=== PATIENT | female | born 1955 | race Caucasian/White ===

== ENCOUNTER 2017-07-21 11:21 | Day surgery (SDC) | payer MEDICARE ==
[~2017-07-21 11:21] MED LIST: Lactated Ringers 1,000 ML IV ONE; Lactated Ringers 1,000 ML IV SCH
[2017-07-21] MEDS ORDERED: Versed 2 MG/2 ML Injection IV ONE (11:22)
[2017-07-21] MEDS ORDERED: DIPRIVAN 200 MG/20 ML IV ONE (11:22)
[2017-07-21 12:47] LABS: ALBUMIN 3.9 g/dL (3.4-5.0); ALKALINE PHOSPHATASE 93 U/L (46-116); ANION GAP 10.8 MEQ/L (5-15); BLOOD UREA NITROGEN 8 mg/dL (9-20); CHLORIDE 105 mEq/L (98-107); Carbon Dioxide 31.8 mEq/L (21-32); Glucose 82 MG/DL (70-110); Potassium 4.2 mEq/L (3.5-5.1); SGOT/AST 44 U/L (15-37); SGPT/ALT 42 U/L (12-78); SODIUM 143 mEq/L (136-145); Total Protein 7.7 gm/dL (6.4-8.2)
[2017-07-21] MEDS ORDERED: Lactated Ringers 1,000 ML IV ONE (14:16)
--- NOTE | 2017-07-21 15:14 | OP ---
SURGERY DATE/TIME: 07/21/2017 1419 PREOPERATIVE DIAGNOSIS: Personal history of polyps on a three year follow up schedule. POSTOPERATIVE DIAGNOSIS: One polyp. PROCEDURE: Colonoscopy complete to cecum. Hot polypectomy to hepatic flexure x1. SURGEON: Kavon Alan M.D. ANESTHESIA: MAC. COMPLICATIONS: None. CONDITION: Stable. INDICATION: A 61 year old requiring examination. DESCRIPTION OF PROCEDURE: Taken to the endoscopy. Left lateral decubitus position. Anal digital examination was satisfactory. She is slightly incontinent and she has a rash. The scope advanced to the cecum. Base of the cecum, ileocecal valve, appendiceal orifice normal. Ascending satisfactory. Hepatic a 6 mm polyp was taken with cold biopsy forceps. The scope was then circumferentially withdrawn. No additional lesions noted. The patient tolerated the procedure satisfactorily. I will leave her on a three year follow up schedule. PLAN: Follow up in five years.
[2017-07-21 16:13] VITALS: BP 114/64; PULSE 68; O2SAT 97
[2017-07-24 15:19] LABS: 25_Hydroxyvitamin D2D3 73.1 ng/mL (30.0-80.0)
== END 2017-07-21 16:05 | disposition home or self-care (01) ==
LOC: SDC 11:21
PROVIDERS: ATTEND Surgery
PROC: 0DBK8ZX Excision of Ascending Colon, Via Natural or Artificial Opening Endoscopic, Diagnostic (ICD-10-PCS; principal; 2017-07-21)
DX: Z86.010 Personal history of colon polyps (principal); D12.2 Benign neoplasm of ascending colon; E06.0 Acute thyroiditis; E06.3 Autoimmune thyroiditis; M81.0 Age-related osteoporosis without current pathological fracture
CPT/HCPCS: 00810; 36415; 80053; 82306; 84443; 88305; J2250; J2704

== ENCOUNTER 2017-08-11 13:35 | Emergency (ER) | payer MEDICARE ==
--- NOTE | 2017-08-11 14:51 | ERPHSYRPT ---
- History of Present Illness Time Seen by Provider: 08/11/17 14:47 Source: patient, family Exam Limitations: no limitations Patient Subjective Stated Complaint: PT HERE FOR LOW B/P SINCE YESTERDAY, HAS COLONOSCOY 2 WEEKS WHICH WAS OKAY BUT WAS BUT ON ANTIBOTICS FOR A PELVIC INFECTION FOR 7 DAYS. DIZZINESS FOR 3 HOURS AGO, EATING AND DRINKING WELL Triage Nursing Assessment: PT ALERT, RESP EASY, SKIN W./D , PINK , DIZZY WHEN UP , NO EDEMA. ANTONIO BACA Physician History: The patient is a 61-year-old female with her complaining of low blood pressure yesterday and today. Her doctor yesterday instructed her that if her blood pressure remained low today that she was to go to the ER. As she was walking to her truck to come to the ER, she became lightheaded. She denies chest pain, nausea, or vomiting. She has an ongoing problem with diarrhea. She had a colonoscopy 2 weeks ago and was free of any polyps or abnormalities. She did have a polyp during the prior colonoscopy. For the past 3 days she has been placed on Diflucan for a "pelvic infection". She denies fever or chills. She denies pain. Her past medical history is significant for hypothyroidism, GERD, chronic diarrhea. Timing/Duration: yesterday Severity: mild Modifying Factors: Improves With: nothing Associated Symptoms: other (dizziness), No nausea, No vomiting, No abdominal pain, No syncope Allergies/Adverse Reactions: aspirin Allergy (Verified 08/11/17 14:02) Nausea tape Allergy (Uncoded 08/11/17 14:02) Home Medications: Bacillus Coagulans [Probiotic] 1 each PO DAILY 07/14/17 [History] Calcium Carbonate/Vitamin D3 [Calcium 500+D Tablet Chew] 1 each PO DAILY [History] Cholecalciferol (Vitamin D3) [Vitamin D] 10,000 unit PO UD 07/14/17 [History] Diazepam [Valium] 10 mg PO QID 07/14/17 [History] Diphenoxylate HCl/Atropine [Lomotil Tablet] 1 each PO QID 07/14/17 [History] Esomeprazole Magnesium [Nexium] 40 mg PO DAILY 07/14/17 [History] Gabapentin [Neurontin] 300 mg PO TID 07/14/17 [History] Hydrocodone/Acetaminophen [Hydrocodon-Acetaminophn 10-325] 1 each PO QID [History] Levothyroxine Sodium 75 Mcg [Synthroid 75 Mcg] 75 mcg PO DAILY 07/14/17 [ History] Mirtazapine [Remeron] 15 mg PO QHS 07/14/17 [History] Teriparatide [Forteo] 2.4 ml SQ DAILY 07/14/17 [History] Hx Tetanus, Diphtheria Vaccination/Date Given: Yes (2015) Hx Influenza Vaccination/Date Given: No Hx Pneumococcal Vaccination/Date Given: No Immunizations Up to Date: Yes - Review of Systems Constitutional: No Fever, No Chills Eyes: No Symptoms Ears, Nose, & Throat: No Symptoms Respiratory: No Cough, No Dyspnea Cardiac: No Chest Pain, No Edema, No Syncope Abdominal/Gastrointestinal: No Abdominal Pain, No Nausea, No Vomiting, No Diarrhea Genitourinary Symptoms: No Dysuria Musculoskeletal: No Back Pain, No Neck Pain Skin: No Rash Neurological: Vertigo, No Headache Psychological: No Symptoms Endocrine: No Symptoms Hematologic/Lymphatic: No Symptoms Immunological/Allergic: No Symptoms All Other Systems: Reviewed and Negative - Past Medical History Pertinent Past Medical History: Yes Neurological History: Migraines ENT History: No Pertinent History Cardiac History: No Pertinent History Respiratory History: No Pertinent History Endocrine Medical History: No Pertinent History Musculoskeletal History: Arthritis, Osteoporosis GI Medical History: GERD History: Other Psycho-Social History: Anxiety Female Reproductive Disorders: No Pertinent History Other Medical History: Frequent bladder infections - Past Surgical History Past Surgical History: Yes Neuro Surgical History: No Pertinent History Cardiac: No Pertinent History Respiratory: No Pertinent History Gastrointestinal: Cholecystectomy Genitourinary: No Pertinent History Musculoskeletal: Orthopedic Surgery, Other Female Surgical History: Hysterectomy, Other Other Surgical History: Cyst removed from pelvis,KNEE SURGERY. Colonoscopy. EGD - Social History Smoking Status: Former smoker Exposure to second hand smoke: No Drug Use: none Patient Lives Alone: No - Female History Hx Last Menstrual Period: POST - Nursing Vital Signs Nursing Vital Signs: Initial Vital Signs Temperature 97.9 F 08/11/17 13:56 Pulse Rate 60 08/11/17 13:56 Respiratory Rate 16 08/11/17 13:56 Blood Pressure 92/54 08/11/17 13:56 O2 Sat by Pulse Oximetry 98 08/11/17 13:56 Pain Scale Pain Intensity 0 - Physical Exam General Appearance: no apparent distress, alert Eye Exam: PERRL/EOMI, eyes nml inspection Ears, Nose, Throat Exam: normal ENT inspection, TMs normal, pharynx normal, moist mucous membranes Neck Exam: normal inspection, non-tender, supple, full range of motion Respiratory Exam: normal breath sounds, lungs clear, No respiratory distress Cardiovascular Exam: bradycardia Gastrointestinal/Abdomen Exam: soft, normal bowel sounds, No tenderness, No mass Pelvic Exam: not done Rectal Exam: not done Back Exam: normal inspection, normal range of motion, No CVA tenderness, No vertebral tenderness Extremity Exam: normal inspection, normal range of motion, pelvis stable Neurologic Exam: alert, oriented x 3, cooperative, normal mood/affect, nml cerebellar function, nml station & gait, sensation nml, No motor deficits Skin Exam: pale Lymphatic Exam: No adenopathy SpO2 Interpretation: normal SpO2: 97 Oxygen Delivery: Room Air - Course EKG Interpreted by Me: RATE, Sinus Wilmer, NORMAL AXIS, Right Bundle Branch Block , NORMAL ST-T - Radiology Exams Chest X-ray Interpretation: Teleradiologist Report, Negative (No new acute cardiopulmonary abnormalities per Dr Blankenship.) Ordered Tests: Active Orders 24 hr Category Date Time Status EKG-ER Only STAT Care 08/11/17 14:52 Active IV Insertion STAT Care 08/11/17 14:52 Active Orthostatic Vital Signs STAT Care 08/11/17 14:54 Active Orthostatic Vital Signs STAT Care 08/11/17 17:29 Active CHEST 2 VIEWS (PA AND LAT) Stat Exams 08/11/17 14:53 Completed BLOOD CULTURE Stat Lab 08/11/17 14:54 Received CBC W DIFF Stat Lab 08/11/17 15:40 Completed CMP Stat Lab 08/11/17 15:40 Completed CULTURE,URINE Stat Lab 08/11/17 15:50 Received Lactic Acid Stat Lab 08/11/17 16:55 Completed TROPONIN Q3H Lab 08/11/17 15:40 Completed TROPONIN Q3H Lab 08/11/17 18:00 Ordered TROPONIN Q3H Lab 08/11/17 21:00 Ordered TROPONIN Q3H Lab 08/12/17 00:00 Ordered TROPONIN Q3H Lab 08/12/17 03:00 Ordered UA W/ MICROSCOPIC Stat Lab 08/11/17 15:50 Completed Medication Summary Discontinued Medications Generic Name Dose Route Start Last Admin Trade Name Rl PRN Reason Stop Dose Admin Sodium Chloride 1,000 mls @ 999 mls/hr 08/11/17 14:52 08/11/17 15:50 Sodium Chloride 0.9% 1000 Ml IV 08/11/17 15:52 999 mls/hr .Q1H1M STA Administration Sodium Chloride Confirm 08/11/17 15:25 Sodium Chloride 0.9% 1000 Ml Administered 08/11/17 15:26 Dose 1,000 mls @ ud .ROUTE .STK-MED ONE Ceftriaxone Sodium/Dextrose 1 g in 50 mls @ 100 mls/hr 08/11/17 16:43 16:52 Rocephin 1 Gm-D5w 50 Ml Bag IV 08/11/17 17:12 100 mls/hr STAT STA Administration Ceftriaxone Sodium/Dextrose Confirm 08/11/17 16:51 Rocephin 1 Gm-D5w 50 Ml Bag Administered 08/11/17 16:52 Dose 1 g in 50 mls @ ud IV .STK-MED ONE Lab/Rad Data: Laboratory Result Diagrams 08/11/17 15:40 08/11/17 15:40 Laboratory Results 08/11/17 08/11/17 08/11/17 Range/Units 16:55 15:50 15:40 WBC (4.0-10.5) K/mm3 RBC (4.1-5.4) M/mm3 Hgb (12.0-16.0) gm/dl Hct (35-47) % MCV (78-100) fl MCH (26-32) pg MCHC (32-36) g/dl RDW (11.5-14.0) % Plt Count (150-450) K/mm3 MPV (6-9.5) fl Gran % (36.0-66.0) % Lymphocytes % (24.0-44.0) % Monocytes % (0.0-12.0) % Eosinophils % (0.00-5.0) % Basophils % (0.0-0.4) % Basophils # (0-0.4) Sodium (136-145) mEq/L Potassium (3.5-5.1) mEq/L Chloride (98-107) mEq/L Carbon Dioxide (21-32) mEq/L Anion Gap (5-15) MEQ/L BUN (9-20) mg/dL Creatinine (0.55-1.30) mg/dl Estimated GFR ML/MIN Glucose (70-110) MG/DL Lactic Acid 0.5 (0.4-2.0) Calcium (8.5-10.1) mg/dL Total Bilirubin (0.2-1.0) mg/dL AST (15-37) U/L ALT (12-78) U/L Alkaline Phosphatase (46-116) U/L Troponin I < 0.017 (0.000-0.056) ng/ml Serum Total Protein (6.4-8.2) gm/dL Albumin (3.4-5.0) g/dL Ur Collection Type VOID Urine Color YELLOW (YELLOW) Urine Appearance HAZY (CLEAR) Urine pH 7.0 (5-6) Ur Specific [place] 1.005 (1.005-1.025) Urine Protein TRACE (Negative) Urine Ketones NEGATIVE (NEGATIVE) Urine Blood 250 (0-5) [place]/ul Urine Nitrite NEGATIVE (NEGATIVE) Urine Bilirubin NEGATIVE (NEGATIVE) Urine Urobilinogen NORMAL (0-1) mg/dL Ur Leukocyte Esterase 2+ (NEGATIVE) Urine Microscopic RBC 5-10 (0-2) /HPF Urine Microscopic WBC >100 (0-5) /HPF Urine Bacteria MANY (NEGATIVE) /HPF Urine Culture Reflexed YES (NO) Urine Glucose NEGATIVE (NEGATIVE) mg/dL Specimen Received 08/11/17 1550 08/11/17 08/11/17 Range/Units 15:40 15:40 WBC 8.4 (4.0-10.5) K/mm3 RBC 3.26 L (4.1-5.4) M/mm3 Hgb 10.7 L (12.0-16.0) gm/dl Hct 33.2 L (35-47) % MCV 101.8 H (78-100) fl MCH 32.8 H (26-32) pg MCHC 32.2 (32-36) g/dl RDW 12.6 (11.5-14.0) % Plt Count 239 (150-450) K/mm3 MPV 11.0 H (6-9.5) fl Gran % 69.2 H (36.0-66.0) % Lymphocytes % 19.4 L (24.0-44.0) % Monocytes % 9.5 (0.0-12.0) % Eosinophils % 1.8 (0.00-5.0) % Basophils % 0.1 (0.0-0.4) % Basophils # 0.01 (0-0.4) Sodium 133 L (136-145) mEq/L Potassium 3.9 (3.5-5.1) mEq/L Chloride 96 L (98-107) mEq/L Carbon Dioxide 31.9 (21-32) mEq/L Anion Gap 9.3 (5-15) MEQ/L BUN 5 L (9-20) mg/dL Creatinine 0.79 (0.55-1.30) mg/dl Estimated GFR > 60 ML/MIN Glucose 83 (70-110) MG/DL Lactic Acid (0.4-2.0) Calcium 8.5 (8.5-10.1) mg/dL Total Bilirubin 0.60 (0.2-1.0) mg/dL AST 180 H (15-37) U/L ALT 358 H (12-78) U/L Alkaline Phosphatase 207 H (46-116) U/L Troponin I (0.000-0.056) ng/ml Serum Total Protein 6.5 (6.4-8.2) gm/dL Albumin 3.2 L (3.4-5.0) g/dL Ur Collection Type Urine Color (YELLOW) Urine Appearance (CLEAR) Urine pH (5-6) Ur Specific [place] (1.005-1.025) Urine Protein (Negative) Urine Ketones (NEGATIVE) Urine Blood (0-5) [place]/ul Urine Nitrite (NEGATIVE) Urine Bilirubin (NEGATIVE) Urine Urobilinogen (0-1) mg/dL Ur Leukocyte Esterase (NEGATIVE) Urine Microscopic RBC (0-2) /HPF Urine Microscopic WBC (0-5) /HPF Urine Bacteria (NEGATIVE) /HPF Urine Culture Reflexed (NO) Urine Glucose (NEGATIVE) mg/dL Specimen Received - Progress Progress: improved Progress Note: 08/11/17 18:11 The patient received 1 L of normal saline by IV and has been feeling better. The patient also received Rocephin 1 g by IV. Orthostatics have remained unchanged. However, the patient ambulates without difficulty in the hallway. She requests to go home now. Counseled pt/family regarding: lab results, diagnosis, need for follow-up, rad results - Departure Time of Disposition: 18:12 Departure Disposition: Home Clinical Impression: UTI (urinary tract infection), Dizziness Condition: Stable Critical Care Time: No Referrals: VITO STEWART [Primary Care Provider] - Additional Instructions: You have a UTI that may have contributed to your dizziness. You were given Rocephin 1 g and fluids 1 L by IV in the ER. Take cephalexin 500 mg 4 times a day for 7 days. Follow-up on Tuesday with your local doctor. If your condition worsens, please return to the ER for evaluation. Prescriptions: Cephalexin 500 mg PO QID #28 tablet
[2017-08-11] MEDS ORDERED: Sodium Chloride 0.9% 1000 ML 1,000 ML IV STA (14:52)
--- NOTE | 2017-08-11 15:22 | XRAY ---
Indication: Dizziness. Low blood pressure. Comparison: March 09, 2013. PA/lateral chest unchanged again demonstrating subtle left base infiltrate/atelectasis. Heart is not enlarged. Bony thorax intact again with minimal degenerative changes. No new cardiopulmonary abnormalities.
[2017-08-11] MEDS ORDERED: Sodium Chloride 0.9% 1000 ML 1,000 ML ONE (15:25)
[2017-08-11 15:53] LABS: BASOPHIL % 0.1 % (0.0-0.4); Eosinophil % 1.8 % (0.00-5.0); Granulocytes % 69.2 % (36.0-66.0); Lymphocytes % 19.4 % (24.0-44.0); Mean Cell Volume 101.8 fl (78-100); Mean Corpuscular Hemoglobin 32.8 pg (26-32); Monocytes % 9.5 % (0.0-12.0); Platelet Count 239 K/mm3 (150-450); Red Blood Count 3.26 M/mm3 (4.1-5.4); Red Cell Distribution Width 12.6 % (11.5-14.0); White Blood Count 8.4 K/mm3 (4.0-10.5)
[2017-08-11 15:53] LABS: Bilirubin NEGATIVE (NEGATIVE); Blood 250 Ery/ul (0-5); Collection Type VOID; Glucose NEGATIVE (NEGATIVE); Leukocyte Esterase 2+ (NEGATIVE)
[2017-08-11 15:54] LABS: ADD URINE CULTURE? YES (NO); COMPLETE URINE MICROSCOPIC? YES
[2017-08-11 16:01] LABS: Bacteria MANY /HPF (NEGATIVE); WBC >100 /HPF (0-5)
[2017-08-11 16:22] LABS: ALBUMIN 3.2 g/dL (3.4-5.0); ALKALINE PHOSPHATASE 207 U/L (46-116); ANION GAP 9.3 MEQ/L (5-15); BLOOD UREA NITROGEN 5 mg/dL (9-20); CHLORIDE 96 mEq/L (98-107); Carbon Dioxide 31.9 mEq/L (21-32); Glucose 83 MG/DL (70-110); Potassium 3.9 mEq/L (3.5-5.1); SGOT/AST 180 U/L (15-37); SGPT/ALT 358 U/L (12-78); SODIUM 133 mEq/L (136-145); Total Protein 6.5 gm/dL (6.4-8.2)
[2017-08-11] MEDS ORDERED: ROCEPHIN 1 Gm-D5w 50 ml Bag** 1 G/50 ML IVPB IV STA (16:43)
[2017-08-11] MEDS ORDERED: ROCEPHIN 1 Gm-D5w 50 ml Bag** 1 G/50 ML IVPB IV ONE (16:51)
[2017-08-11 17:21] VITALS: PULSE 60
[2017-08-11 18:13] VITALS: BP 78/48
[2017-08-11 18:15] VITALS: O2SAT 97
== END 2017-08-11 18:20 | disposition home or self-care (01) ==
LOC: ED 13:35
DX: N39.0 Urinary tract infection, site not specified (principal); R42 Dizziness and giddiness
CPT/HCPCS: 36000; 36415; 71020; 80053; 81000; 83605; 84484; 85025; 87040; 87077; 87086; 87186; 93005; 96360; 96365; 99284; J0696

== ENCOUNTER 2017-10-13 12:10 | Inpatient (IN) | payer MEDICARE ==
--- NOTE | 2017-10-13 07:41 | HP ---
DATE OF SURGERY: 10/13/2017 ADMISSION DIAGNOSIS: Pelvic prolapse with third degree cystocele, third vaginal cuff prolapse. ANTICIPATED PROCEDURE: Abdominovaginal sacropexy with mesh, Germaine. PAST MEDICAL HISTORY: Diarrhea, thyroid problems, colon problems. ALLERGIES: ASPIRIN. MEDICATIONS: Lomotil, Valium, Nexium. PAST SURGICAL HISTORY: None. SOCIAL HISTORY: E-cigarette. FAMILY HISTORY: Negative. REVIEW OF SYSTEMS: Negative. PHYSICAL EXAMINATION: VITAL SIGNS: Normal. CHEST: Clear. COR: Regular. ABDOMEN: No palpable organomegaly or mass. She has a low midline incision. IMPRESSION: Pelvic prolapse, third degree vaginal cuff and third degree cystocele with symptoms. PLAN: Abdominovaginal sacropexy, Germaine.
[~2017-10-13 12:10] MED LIST changes: +KEFZOL 1 GM ONE; -Lactated Ringers 1,000 ML IV SCH; +Sensorcaine 0.25% 10 ML ONE
[2017-11-10] MEDS ORDERED: Lactated Ringers 1,000 ML IV ONE ×2 (07:25→10:44)
[2017-11-10] MEDS ORDERED: KEFZOL 1 GM ONE ×2 (07:25→14:21)
[2017-11-10] MEDS ORDERED: Lactated Ringers 1,000 ML IV SCH (07:30)
[2017-11-10] MEDS ORDERED: MEFOXIN 2 GM PREMIX** 2 GM/50 ML ML IV SCH (08:00)
[2017-11-10] MEDS ORDERED: MEFOXIN 2 GM PREMIX** 2 GM/50 ML ML IV ONE (10:44)
[2017-11-10] MEDS ORDERED: BREVIBLOC 100 MG/10 ML IV ONE (12:14)
[2017-11-10] MEDS ORDERED: DILAUDID 2 MG INJECTION IV ONE (12:14)
[2017-11-10] MEDS ORDERED: Zemuron 100 MG/10 ML IV ONE (12:14)
[2017-11-10] MEDS ORDERED: BRIDION 200MG/2ML IV ONE (12:14)
[2017-11-10] MEDS ORDERED: SUBLIMAZE 250 MCG/5 ML IV ONE (12:14)
[2017-11-10] MEDS ORDERED: DIPRIVAN 200 MG/20 ML IV ONE (12:14)
[2017-11-10] MEDS ORDERED: Versed 2 MG/2 ML Injection IV ONE (12:14)
[2017-11-10] MEDS ORDERED: Narcan 0.4 MG/ML ONE (15:59)
[2017-11-10] MEDS ORDERED: MORPHINE SULFATE 2 MG INJ IV PRN (17:13)
[2017-11-10] MEDS ORDERED: TYLENOL 325 MG PO PRN (17:15)
[2017-11-10] MEDS ORDERED: FEVERALL 650 MG RC PRN (17:15)
[2017-11-10] MEDS ORDERED: Zofran 4 MG/2 ML VIAL IVIM PRN (17:19)
[2017-11-10] MEDS ORDERED: COLESEVELAM HCL 625 MG PO PRN (17:21)
[2017-11-10] MEDS ORDERED: CHOLECALCIFEROL 10000 UNIT PO SCH ×2 (17:30)
[2017-11-10] MEDS: D5W/0.45NS W/ 20mEq KCl 1000 ML 1,000 ML IV SCH (17:32)
[2017-11-10] MEDS: MORPHINE SULFATE 4 MG INJ IV PRN ×2 (17:33→22:00)
[2017-11-10] MEDS: Lomotil PO SCH ×2 (17:40→22:44)
[2017-11-10] MEDS ORDERED: VITAMIN D PO PRN (17:41)
[2017-11-10] MEDS: SYNTHROID 75 MCG PO SCH (17:42)
[2017-11-10] MEDS ORDERED: MEDICATION INTERVENTION MC PRN (17:46)
[2017-11-10] MEDS: Acidophilus TABLET PO SCH (17:50)
[2017-11-10] MEDS: Protonix 40MG Tablet PO SCH (17:50)
[2017-11-10] MEDS: Calcium 500MG W/Vit D Tablet PO SCH (17:50)
[2017-11-10] MEDS: Valium 5 MG PO SCH ×2 (17:50→22:05)
[2017-11-10 18:11] LABS: Hematocrit 40.4 % (35-47); Hemoglobin 12.8 gm/dl (12.0-16.0); Mean Corpuscular Hemoglobin 32.3 pg (26-32); Mean Corpuscular Hgb Concent. 31.7 g/dl (32-36); Mean Platelet Volume 10.1 fl (6-9.5); Platelet Count 232 K/mm3 (150-450); Red Blood Count 3.96 M/mm3 (4.1-5.4); Red Cell Distribution Width 12.6 % (11.5-14.0); White Blood Count 15.9 K/mm3 (4.0-10.5)
[2017-11-10] MEDS ORDERED: NORCO 5/325 MG ONE (19:42)
[2017-11-10] MEDS: NORCO 5/325 MG PO PRN (19:46)
[2017-11-10] MEDS: NEURONTIN 300 MG PO SCH (21:57)
[2017-11-10] MEDS: REMERON 30 MG PO SCH (21:57)
[2017-11-10] MEDS ORDERED: NON-FORMULARY ITEM (Mirtazapine [Remeron] 15 MG) PO SCH (22:00)
[2017-11-10] MEDS ORDERED: NON-FORMULARY ITEM (Diazepam [Valium] 10 MG) PO SCH (22:00)
[2017-11-10] MEDS: MEFOXIN 1 Gm/ D5W 50 Ml** 1 G/50 ML ML IV SCH (22:02)
[2017-11-11] MEDS: MEFOXIN 1 Gm/ D5W 50 Ml** 1 G/50 ML ML IV SCH ×2 (05:58→14:02)
[2017-11-11] MEDS: D5W/0.45NS W/ 20mEq KCl 1000 ML 1,000 ML IV SCH ×2 (07:14→21:56)
--- NOTE | 2017-11-11 08:25 | PCM.NOTE ---
Date and Time: 11/11/17819 Subjective Assessment: She is having a little pain tired from being woken up frequently has not had anything to eat or drink yet. Otherwise she was to start some new medications from the pain doctor that she saw yesterday but is not sure what they are. SHe was feeling her normal self prior to surgery she has cardiac clearence from Dr. 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 Objective Exam General Appearance: no apparent distress, alert Neurologic Exam: alert, oriented x 3, cooperative, normal mood/affect, nml cerebellar function, sensation nml, No motor deficits Skin Exam: normal color, warm, dry Eye Exam: PERRL, EOMI, eyes nml inspection Ears, Nose, Throat Exam: normal ENT inspection, pharynx normal, moist mucous membranes Neck Exam: normal inspection, non-tender, supple, full range of motion Respiratory Exam: normal breath sounds, lungs clear, No respiratory distress Cardiovascular Exam: regular rate/rhythm, normal heart sounds Gastrointestinal/Abdomen Exam: soft, normal bowel sounds, tenderness (mildine incision lower abdomen clean dry intact dressing), No mass Extremity Exam: normal inspection, normal range of motion, other (right upper extremity 1+ pitting edema) Back Exam: normal inspection, normal range of motion, No CVA tenderness, No vertebral tenderness Pelvic Exam: deferred Rectal Exam: deferred OBJECTIVE DATA Vital Signs: Vital Signs - 24 hr Temp Pulse Resp BP Pulse Ox 11/11/17 07:54 90 14 97 11/11/17 07:35 98.5 F 91 H 16 166/80 97 11/11/17 03:54 97.9 F 93 H 10 L 144/73 97 11/11/17 00:00 97.7 F 81 16 135/65 94 L 11/10/17 21:07 79 16 99 11/10/17 20:05 97.9 F 79 16 166/80 98 11/10/17 19:05 97.8 F 75 15 137/65 100 11/10/17 18:05 98.7 F 70 15 124/57 99 11/10/17 17:57 71 12 98 11/10/17 17:35 98.6 F 72 14 128/62 98 11/10/17 17:07 98.4 F 67 14 142/63 98 11/10/17 16:49 98.4 F 67 16 137/61 96 11/10/17 10:58 97 F 87 18 115/84 98 11/10/17 10:50 97 F 87 18 115/84 98 11/10/17 10:34 97 F 87 18 115/84 98 Oxygen-Last 24 hours O2 Percentage 2 Liters = 28% O2 Percentage 2 Liters = 28% O2 Percentage 2 Liters = 28% O2 Percentage 2 Liters = 28% O2 Percentage 2 Liters = 28% O2 Percentage 2 Liters = 28% O2 Percentage 2 Liters = 28% O2 Percentage 2 Liters = 28% O2 Percentage 2 Liters = 28% Pain Assessment - Last Documented Pain Intensity 0 Pain Scale Used 0-10 Pain Scale,FLACC Intake and Output: Intake & Output 11/08/17 11/09/17 11/10/17 11/11/17 11:59 11:59 11:59 11:59 Intake Total 748 Output Total 600 Balance 148 Weight 49.045 kg Lab Results: Lab Results-Last 24 Hours 11/10/17 Range/Units 18:09 WBC 15.9 H (4.0-10.5) K/mm3 RBC 3.96 L (4.1-5.4) M/mm3 Hgb 12.8 (12.0-16.0) gm/dl Hct 40.4 (35-47) % MCV 102.0 H (78-100) fl MCH 32.3 H (26-32) pg MCHC 31.7 L (32-36) g/dl RDW 12.6 (11.5-14.0) % Plt Count 232 (150-450) K/mm3 MPV 10.1 H (6-9.5) fl Assessment/Plan (1) S/P hysterectomy Current Visit: Yes Status: Acute Assessment & Plan: post op day 1 doing well advancing diet has not eaten yet disposition per surgery Code(s): Z90.710 - ACQUIRED ABSENCE OF BOTH CERVIX AND UTERUS (2) Elevated transaminase level Current Visit: Yes Status: Chronic Assessment & Plan: last labs are from Aug in ED which showed new liver enzyme elevation no available recheck she denies any infectious history or exposure or liver disease recheck onw Code(s): R74.0 - NONSPEC ELEV OF LEVELS OF TRANSAMNS & LACTIC ACID DEHYDRGNSE (3) COPD (chronic obstructive pulmonary disease) Current Visit: Yes Status: Chronic (4) Hypothyroidism Current Visit: Yes Status: Chronic Code(s): E03.9 - HYPOTHYROIDISM, UNSPECIFIED (5) Chronic diarrhea Current Visit: Yes Status: Chronic Code(s): K52.9 - NONINFECTIVE GASTROENTERITIS AND COLITIS, UNSPECIFIED (6) Anxiety Current Visit: Yes Status: Chronic Code(s): F41.9 - ANXIETY DISORDER, UNSPECIFIED
[2017-11-11 08:59] LABS: BASOPHIL % 0.1 % (0.0-0.4); Basophil (Absolute #) 0.01 (0-0.4); Eosinophil (Absolute #) 0 (0-0.5); Granulocyte Absolute (ANC) 14.51 (1.4-6.9); Granulocytes % 90.2 % (36.0-66.0); Hematocrit 37.4 % (35-47); Hemoglobin 12.2 gm/dl (12.0-16.0); Lymphocyte (Absolute #) 0.73 (1.0-4.6); Lymphocytes % 4.5 % (24.0-44.0); Mean Cell Volume 99.5 fl (78-100); Mean Corpuscular Hemoglobin 32.4 pg (26-32); Mean Corpuscular Hgb Concent. 32.6 g/dl (32-36); Mean Platelet Volume 10.2 fl (6-9.5); Monocyte (Absolute #) 0.83 (0.0-1.3); Monocytes % 5.2 % (0.0-12.0); Platelet Count 253 K/mm3 (150-450); Red Blood Count 3.76 M/mm3 (4.1-5.4); Red Cell Distribution Width 12.6 % (11.5-14.0); White Blood Count 16.1 K/mm3 (4.0-10.5)
[2017-11-11 09:50] LABS: ALBUMIN 3.2 g/dL (3.4-5.0); ALKALINE PHOSPHATASE 94 U/L (46-116); ANION GAP 10.9 MEQ/L (5-15); BLOOD UREA NITROGEN 9 mg/dL (9-20); CHLORIDE 102 mEq/L (98-107); Calcium 8.5 mg/dL (8.5-10.1); Carbon Dioxide 30.7 mEq/L (21-32); Creatinine 1 0.89 mg/dl (0.55-1.30); EST GLOMERULAR FILTRATION RATE > 60 ML/MIN; Glucose 156 MG/DL (70-110); Potassium 4.2 mEq/L (3.5-5.1); SGOT/AST 69 U/L (15-37); SGPT/ALT 108 U/L (12-78); SODIUM 139 mEq/L (136-145); Total Protein 6.8 gm/dL (6.4-8.2)
[2017-11-11] MEDS ORDERED: NON-FORMULARY ITEM (Esomeprazole Magnesium [Nexium] 40 MG) PO SCH (10:00)
[2017-11-11] MEDS ORDERED: VITAMIN D3 PO SCH (10:00)
[2017-11-11] MEDS ORDERED: NON-FORMULARY ITEM (Bacillus Coagulans [Probiotic] 1 EACH) PO SCH (10:00)
[2017-11-11] MEDS ORDERED: TERIPARATIDE SQ SCH (10:00)
[2017-11-11] MEDS ORDERED: CALCIUM CARBONATE PO SCH (10:00)
[2017-11-11] MEDS ORDERED: NON-FORMULARY ITEM (Megestrol Acetate 40 Mg*** 40 MG) PO SCH (10:00)
[2017-11-11] MEDS: NEURONTIN 300 MG PO SCH ×3 (10:13→21:13)
[2017-11-11] MEDS: NORCO 5/325 MG PO PRN ×2 (10:13→22:08)
[2017-11-11] MEDS: SYNTHROID 75 MCG PO SCH (10:14)
[2017-11-11] MEDS: Protonix 40MG Tablet PO SCH (10:14)
[2017-11-11] MEDS: Valium 5 MG PO SCH ×4 (10:14→21:14)
[2017-11-11] MEDS: Lomotil PO SCH ×4 (10:14→21:13)
[2017-11-11] MEDS: Acidophilus TABLET PO SCH (10:15)
[2017-11-11] MEDS: Calcium 500MG W/Vit D Tablet PO SCH (10:15)
[2017-11-11] MEDS: ENOXAPARIN SODIUM SQ SCH (10:15)
--- NOTE | 2017-11-11 13:39 | OP ---
SURGERY DATE/TIME: 11/10/2017 2616 PREOPERATIVE DIAGNOSIS: Pelvic prolapse and stress incontinence. POSTOPERATIVE DIAGNOSIS: Pelvic prolapse and stress incontinence. PROCEDURE: Abdominovaginal sacropexy, Germaine. SURGEON: Kavon Alan M.D. [employer]PER[employer]: Medical Student III. ANESTHESIA: General. COMPLICATIONS: None. CONDITION: Stable. INDICATION: A patient with pelvic prolapse and symptomatic bladder incontinence. DESCRIPTION OF PROCEDURE: Taken to surgery. General anesthetic. Routine prep and drape. Time out performed. A midline incision was already present and was re-entered. Good exposure was present. The pelvis was free. She had previous total abdominal hysterectomy and bilateral salpingo-oophorectomy. There was no gross pathology other than prolapse. The vagina was pushed forward with curved sponge stick. Eight sutures placed on 1 x 4 mesh secured to the vaginal cuff making sure to keep these off of the bladder and off the lateral area. It was then trimmed to size and two sutures were placed on the sacral promontory and this was tied down. It laid nicely. It was not rubbing into the colon. The colon had plenty of room and was laying perfectly beside it. The soft rim edge of the mesh was towards the colon. Space of Retzius was entered. The urethra vesical junction defined. The periurethral suture on the left and right 0 Prolene advanced up to the symphysis in vertical fashion. Diagonal to that on the lower bladder was advanced up to the symphysis in a diagonal fashion and then third set of sutures advanced up from the mid bladder up to the abdominal wall rectus sheath. The field was dry. Bowel laid back in organized fashion. Omentum brought down. Anterior abdominal wall closed with looped 0 PDS and subcutaneous tissues irrigated. Skin closed with lidia. Sterile dressing applied. The patient tolerated the procedure satisfactorily.
[2017-11-11] MEDS: REMERON 30 MG PO SCH (21:12)
[2017-11-12] MEDS: NORCO 5/325 MG PO PRN ×4 (02:06→21:04)
[2017-11-12 06:57] LABS: BASOPHIL % 0.2 % (0.0-0.4); Basophil (Absolute #) 0.02 (0-0.4); Eosinophil % 0.5 % (0.00-5.0); Eosinophil (Absolute #) 0.05 (0-0.5); Granulocyte Absolute (ANC) 7.22 (1.4-6.9); Granulocytes % 76.1 % (36.0-66.0); Hematocrit 36.9 % (35-47); Hemoglobin 11.6 gm/dl (12.0-16.0); Lymphocyte (Absolute #) 1.22 (1.0-4.6); Lymphocytes % 12.8 % (24.0-44.0); Mean Cell Volume 101.7 fl (78-100); Mean Corpuscular Hgb Concent. 31.4 g/dl (32-36); Mean Platelet Volume 10.9 fl (6-9.5); Monocyte (Absolute #) 0.99 (0.0-1.3); Monocytes % 10.4 % (0.0-12.0); Platelet Count 236 K/mm3 (150-450); Red Blood Count 3.63 M/mm3 (4.1-5.4); Red Cell Distribution Width 12.4 % (11.5-14.0); White Blood Count 9.5 K/mm3 (4.0-10.5)
[2017-11-12 07:09] LABS: Mean Corpuscular Hemoglobin 31.9 pg (26-32)
[2017-11-12 07:28] LABS: ALKALINE PHOSPHATASE 81 U/L (46-116); ANION GAP 7.9 MEQ/L (5-15); BLOOD UREA NITROGEN 5 mg/dL (9-20); CHLORIDE 106 mEq/L (98-107); Carbon Dioxide 31.8 mEq/L (21-32); Creatinine 1 0.77 mg/dl (0.55-1.30); EST GLOMERULAR FILTRATION RATE > 60 ML/MIN; Glucose 116 MG/DL (70-110); SGOT/AST 64 U/L (15-37); SGPT/ALT 94 U/L (12-78); SODIUM 142 mEq/L (136-145); Total Protein 6.4 gm/dL (6.4-8.2)
[2017-11-12] MEDS: Protonix 40MG Tablet PO SCH (08:56)
[2017-11-12] MEDS: SYNTHROID 75 MCG PO SCH (08:56)
[2017-11-12] MEDS: NEURONTIN 300 MG PO SCH ×3 (08:56→21:03)
[2017-11-12] MEDS: Acidophilus TABLET PO SCH (08:56)
[2017-11-12] MEDS: Calcium 500MG W/Vit D Tablet PO SCH (08:57)
[2017-11-12] MEDS: ENOXAPARIN SODIUM SQ SCH (08:57)
[2017-11-12] MEDS: Lomotil PO SCH ×4 (08:57→21:04)
[2017-11-12] MEDS: Valium 5 MG PO SCH ×4 (08:57→21:03)
[2017-11-12] MEDS: D5W/0.45NS W/ 20mEq KCl 1000 ML 1,000 ML IV SCH (09:09)
[2017-11-12] MEDS: REMERON 30 MG PO SCH (21:04)
[2017-11-13] MEDS: NORCO 5/325 MG PO PRN ×2 (05:39→09:28)
[2017-11-13 07:21] VITALS: BP 130/68; PULSE 90; O2SAT 98
[2017-11-13] MEDS: Calcium 500MG W/Vit D Tablet PO SCH (08:39)
[2017-11-13] MEDS: Lomotil PO SCH (08:39)
[2017-11-13] MEDS: Acidophilus TABLET PO SCH (08:39)
[2017-11-13] MEDS: Valium 5 MG PO SCH (08:40)
[2017-11-13] MEDS: Protonix 40MG Tablet PO SCH (08:40)
[2017-11-13] MEDS: NEURONTIN 300 MG PO SCH (08:40)
[2017-11-13] MEDS: ENOXAPARIN SODIUM SQ SCH (08:40)
[2017-11-13] MEDS: SYNTHROID 75 MCG PO SCH (08:40)
[2017-11-14 14:53] LABS: HEPATITIS B VIRUS CORE TOT AB Non Reactive (Non Reactive); HEPATITIS C VIRUS ANTIBODY Non Reactive (Non Reactive); Hepatitis B Surface Antigen Non Reactive (Non Reactive)
== END 2017-11-13 12:15 | disposition home or self-care (01) | DRG 748 ==
LOC: EDSTATUS 12:10 → MED SURG 11-10 10:09
PROVIDERS: ADMIT Surgery; ATTEND Surgery
PROC: 0USG0ZZ Reposition Vagina, Open Approach (ICD-10-PCS; principal; 2017-11-10)
PROC: 0TSD0ZZ Reposition Urethra, Open Approach (ICD-10-PCS; 2017-11-10)
DX: N81.89 Other female genital prolapse (principal); N39.3 Stress incontinence (female) (male); Z90.710 Acquired absence of both cervix and uterus; R74.0 Nonspecific elevation of levels of transaminase and lactic acid dehydrogenase [LDH]; J44.9 Chronic obstructive pulmonary disease, unspecified; E03.9 Hypothyroidism, unspecified; K52.9 Noninfective gastroenteritis and colitis, unspecified; F41.9 Anxiety disorder, unspecified; Z79.899 Other long term (current) drug therapy
CPT/HCPCS: 00860; 36415; 80053; 80074; 85025; 85027; 87077; 87086; 87186; 94760; C1781; J0690; J0694; J1170; J1650; J2250; J2270; J2310; J2405; J2704; J3010; A9270-GY

== ENCOUNTER 2017-12-05 13:25 | Inpatient (IN) | payer MEDICARE ==
[2017-12-05] MEDS ORDERED: Zofran 4 MG/2 ML VIAL IV ONE (14:16)
--- NOTE | 2017-12-05 14:21 | ERPHSYRPT ---
- History of Present Illness Time Seen by Provider: 12/05/17 14:08 Historian: patient, family Patient Subjective Stated Complaint: vomiting x 2 days, decreased UO, hit in the head w door of care just VERTICAL BORER Triage Nursing Assessment: pt assisted to cot from wheelchair, slight unsteadiness noted, skin warm and dry, abd soft, bowel sounds + x 4, no distress noted at this time. small abrasion noted to right forehead, no active bleeding noted Physician History: CC: vomiting Hx: A few weeks post bladder sling per Dr Alan. She has has 4 days of initially diarrhea and fever now vomiting. Vomited multiple times today. Fever gone. No real abd pain. Able to urinate normally. No chest pain. Opened car door and hit her head on the door VERTICAL BORER without LOC. No neck or back pain. She vomited multiple times today. Allergies/Adverse Reactions: aspirin Allergy (Verified 11/10/17 10:31) Nausea tape Allergy (Uncoded 11/10/17 10:31) Home Medications: Bacillus Coagulans [Probiotic] 1 each PO DAILY 07/14/17 [History] Calcium Carbonate/Vitamin D3 [Calcium 500+D Tablet Chew] 1 each PO DAILY [History] Cholecalciferol (Vitamin D3) [Vitamin D] 10,000 unit PO UD 07/14/17 [History] Diazepam [Valium] 10 mg PO QID 07/14/17 [History] Diphenoxylate HCl/Atropine [Lomotil 2.5-0.025 mg Tablet] 1 each PO QID 07/14/17 [History] Esomeprazole Magnesium [Nexium] 40 mg PO DAILY 07/14/17 [History] Gabapentin [Neurontin] 300 mg PO TID 07/14/17 [History] Levothyroxine Sodium 75 Mcg [Synthroid 75 Mcg] 75 mcg PO DAILY 07/14/17 [ History] Mirtazapine [Remeron] 15 mg PO QHS 07/14/17 [History] Teriparatide [Forteo] 2.4 ml SQ DAILY 07/14/17 [History] Cholecalciferol (Vitamin D3) [Vitamin D] 10,000 unit PO DIRECTIONS UNKNOWN 10/06 [History] Colesevelam HCl [Welchol] 625 mg PO DAILY PRN PRN 10/06/17 [History] Megestrol Acetate 40 mg [Megace 40 MG] 40 mg PO DAILY 10/06/17 [History] Hx Tetanus, Diphtheria Vaccination/Date Given: Yes (2015) Hx Influenza Vaccination/Date Given: No Hx Pneumococcal Vaccination/Date Given: No - Review of Systems Constitutional: Fever (gone), Fatigue, Malaise, Weakness Eyes: No Symptoms, No Vision Changes Ears, Nose, & Throat: No Symptoms Respiratory: No Symptoms Cardiac: No Chest Pain Abdominal/Gastrointestinal: Nausea, Vomiting, Diarrhea, No Abdominal Pain Genitourinary Symptoms: No Dysuria Musculoskeletal: No Back Pain, No Neck Pain Skin: No Rash Neurological: No Focal Weakness, No Headache, No Parasthesia All Other Systems: Reviewed and Negative - Past Medical History Pertinent Past Medical History: Yes Neurological History: Migraines ENT History: Cataracts Cardiac History: No Pertinent History Respiratory History: No Pertinent History Endocrine Medical History: Hypothyroidism Musculoskeletal History: Arthritis, Osteoporosis GI Medical History: GERD History: Other Psycho-Social History: Anxiety Female Reproductive Disorders: No Pertinent History Other Medical History: Frequent bladder infections, bladder dropped, urinary incontinence - Past Surgical History Past Surgical History: Yes Neuro Surgical History: No Pertinent History Cardiac: No Pertinent History Respiratory: No Pertinent History Gastrointestinal: Cholecystectomy Genitourinary: No Pertinent History Musculoskeletal: Orthopedic Surgery, Other Female Surgical History: Hysterectomy, Other Other Surgical History: Cyst removed from pelvis,KNEE SURGERY. Colonoscopy times 5. EGD times 4 - Social History Smoking Status: Former smoker How long have you smoked: 30years Exposure to second hand smoke: Yes Drug Use: none Patient Lives Alone: No - Nursing Vital Signs Nursing Vital Signs: Initial Vital Signs Temperature 97.6 F 12/05/17 13:40 Pulse Rate 96 H 12/05/17 13:40 Respiratory Rate 20 12/05/17 13:40 Blood Pressure 116/67 12/05/17 13:40 O2 Sat by Pulse Oximetry 94 L 12/05/17 13:40 Pain Scale Pain Intensity 0 - Physical Exam General Appearance: alert, thin (frail elderly lady) Eye Exam: PERRL/EOMI, No scleral icterus Ears, Nose, Throat Exam: normal ENT inspection, dry mucous membranes Neck Exam: normal inspection, non-tender, supple Respiratory Exam: normal breath sounds, lungs clear Cardiovascular Exam: regular rate/rhythm Gastrointestinal/Abdomen Exam: soft, No tenderness, No distention Back Exam: normal inspection, normal range of motion Extremity Exam: normal inspection, normal range of motion Neurologic Exam: alert, oriented x 3, cooperative, sensation nml, No motor deficits Skin Exam: warm, dry, No rash SpO2 Interpretation: normal SpO2: 94 Oxygen Delivery: Room Air - Course Nursing assessment & vital signs reviewed: Yes - Radiology Exams AAS X-ray Interpretation: Teleradiologist Report (air fluid levels) Ordered Tests: Active Orders 24 hr Category Date Time Status IV Insertion STAT Care 12/05/17 14:16 Active OBSTR/ACUTE ABDOMEN SERIES Stat Exams 12/05/17 14:16 Completed CBC W DIFF Stat Lab 12/05/17 15:51 Completed CMP Stat Lab 12/05/17 15:51 Completed CULTURE,URINE Stat Lab 12/05/17 16:35 Received LIPASE Stat Lab 12/05/17 16:23 Completed Lactic Acid Stat Lab 12/05/17 14:16 Results UA W/ MICROSCOPIC Stat Lab 12/05/17 16:35 Completed Medication Summary Generic Name Dose Route Start Last Admin Trade Name Freq PRN Reason Stop Dose Admin Sodium Chloride 1,000 mls @ 250 mls/hr 12/05/17 14:30 12/05/17 15:02 Sodium Chloride 0.9% 1000 Ml IV 01/04/18 14:29 250 mls/hr .Q4H OSIRIS Administration Discontinued Medications Generic Name Dose Route Start Last Admin Trade Name Freq PRN Reason Stop Dose Admin Diphtheria/Tetanus/Acell Pertussis 0.5 ml 12/05/17 14:22 12/05/17 15:01 Adacel Vial IM 12/05/17 14:23 0.5 ml .ONCE ONE Administration Diphtheria/Tetanus/Acell Pertussis Confirm 12/05/17 15:02 Adacel Vial Administered 12/05/17 15:03 Dose 0.5 ml IM .STK-MED ONE Ondansetron HCl 4 mg 12/05/17 14:16 12/05/17 15:00 Zofran 4 Mg/2 Ml Vial IV 12/05/17 14:17 4 mg STAT ONE Administration Ondansetron HCl Confirm 12/05/17 14:59 Zofran 4 Mg/2 Ml Vial Administered 12/05/17 15:00 Dose 4 mg .ROUTE .STK-MED ONE Lab/Rad Data: Laboratory Result Diagrams 12/05/17 15:51 12/05/17 15:51 Laboratory Results 12/05/17 12/05/17 12/05/17 Range/Units 16:35 16:23 15:51 WBC (4.0-10.5) K/mm3 RBC (4.1-5.4) M/mm3 Hgb (12.0-16.0) gm/dl Hct (35-47) % MCV (78-100) fl MCH (26-32) pg MCHC (32-36) g/dl RDW (11.5-14.0) % Plt Count (150-450) K/mm3 MPV (6-9.5) fl Gran % (36.0-66.0) % Lymphocytes % (24.0-44.0) % Monocytes % (0.0-12.0) % Eosinophils % (0.00-5.0) % Basophils % (0.0-0.4) % Basophils # (0-0.4) Sodium 140 (136-145) mEq/L Potassium 4.0 (3.5-5.1) mEq/L Chloride 98 (98-107) mEq/L Carbon Dioxide 35.9 H (21-32) mEq/L Anion Gap 10.4 (5-15) MEQ/L BUN 24 H (9-20) mg/dL Creatinine 1.95 H (0.55-1.30) mg/dl Estimated GFR 27 ML/MIN Glucose 121 H (70-110) MG/DL Lactic Acid (0.4-2.0) Calcium 10.8 H (8.5-10.1) mg/dL Total Bilirubin 0.60 (0.2-1.0) mg/dL AST 26 (15-37) U/L ALT 20 (12-78) U/L Alkaline Phosphatase 150 H (46-116) U/L Serum Total Protein 8.4 H (6.4-8.2) gm/dL Albumin 3.2 L (3.4-5.0) g/dL Lipase 172 (73-393) U/L Ur Collection Type CCMS Urine Color YELLOW (YELLOW) Urine Appearance CLOUDY (CLEAR) Urine pH 5.0 (5-6) Ur Specific [place] 1.025 (1.005-1.025) Urine Protein 30 (Negative) Urine Ketones NEGATIVE (NEGATIVE) Urine Blood 50 (0-5) [place]/ul Urine Nitrite NEGATIVE (NEGATIVE) Urine Bilirubin MODERATE (NEGATIVE) Urine Urobilinogen NORMAL (0-1) mg/dL Ur Leukocyte Esterase 2+ (NEGATIVE) Urine Microscopic RBC 5-10 (0-2) /HPF Urine Microscopic WBC 15-25 (0-5) /HPF Ur Epithelial Cells MANY (FEW) /HPF Urine Bacteria MANY (NEGATIVE) /HPF Urine Culture Reflexed YES (NO) Urine Glucose NEGATIVE (NEGATIVE) mg/dL Specimen Received 12-05-17 6525 12/05/17 12/05/17 Range/Units 15:51 14:16 WBC 17.9 H (4.0-10.5) K/mm3 RBC 4.23 (4.1-5.4) M/mm3 Hgb 13.3 (12.0-16.0) gm/dl Hct 42.4 (35-47) % MCV 100.2 H (78-100) fl MCH 31.4 (26-32) pg MCHC 31.4 L (32-36) g/dl RDW 13.6 (11.5-14.0) % Plt Count 833 H (150-450) K/mm3 MPV 9.2 (6-9.5) fl Gran % 89.5 H (36.0-66.0) % Lymphocytes % 5.5 L (24.0-44.0) % Monocytes % 4.5 (0.0-12.0) % Eosinophils % 0.3 (0.00-5.0) % Basophils % 0.2 (0.0-0.4) % Basophils # 0.04 (0-0.4) Sodium (136-145) mEq/L Potassium (3.5-5.1) mEq/L Chloride (98-107) mEq/L Carbon Dioxide (21-32) mEq/L Anion Gap (5-15) MEQ/L BUN (9-20) mg/dL Creatinine (0.55-1.30) mg/dl Estimated GFR ML/MIN Glucose (70-110) MG/DL Lactic Acid 2.1 H (0.4-2.0) Calcium (8.5-10.1) mg/dL Total Bilirubin (0.2-1.0) mg/dL AST (15-37) U/L ALT (12-78) U/L Alkaline Phosphatase (46-116) U/L Serum Total Protein (6.4-8.2) gm/dL Albumin (3.4-5.0) g/dL Lipase (73-393) U/L Ur Collection Type Urine Color (YELLOW) Urine Appearance (CLEAR) Urine pH (5-6) Ur Specific [place] (1.005-1.025) Urine Protein (Negative) Urine Ketones (NEGATIVE) Urine Blood (0-5) Layo/ul Urine Nitrite (NEGATIVE) Urine Bilirubin (NEGATIVE) Urine Urobilinogen (0-1) mg/dL Ur Leukocyte Esterase (NEGATIVE) Urine Microscopic RBC (0-2) /HPF Urine Microscopic WBC (0-5) /HPF Ur Epithelial Cells (FEW) /HPF Urine Bacteria (NEGATIVE) /HPF Urine Culture Reflexed (NO) Urine Glucose (NEGATIVE) mg/dL Specimen Received - Progress Progress Note: 12/05/17 16:25 Await lab chemistries. Xray shows air fluid levels which could be obstructive. 12/05/17 17:[address] Myra Stewart. Will place in obs for UTI treatment, rule out bowel obstr, IVF for dehydration. Discussed with : Juan Diego Will see patient in: hospital (observation) Counseled pt/family regarding: lab results, diagnosis, need for follow-up, rad results - Departure Time of Disposition: 17:06 Departure Disposition: Observation Clinical Impression: UTI (urinary tract infection), Vomiting, rule out bowel obstruction, Dehydration Condition: Fair Critical Care Time: No Referrals: VITO STEWART [Primary Care Provider] -
[2017-12-05] MEDS ORDERED: Adacel Vial IM ONE ×2 (14:22→15:02)
[2017-12-05] MEDS ORDERED: Sodium Chloride 0.9% 1000 ML 1,000 ML IV SCH (14:30)
--- NOTE | 2017-12-05 14:55 | XRAY ---
Indication: Chronic nausea, vomiting, and diarrhea. Comparison: Chest exam August 11, 2017. 2 views of the abdomen demonstrates a few mild small and large bowel air-fluid leveling, ileus versus enterocolitis. Previous cholecystectomy. Solid organs unremarkable. Mild aortic calcifications. Osseous structures intact with mild lumbar levorotoscoliosis. Single PA chest demonstrates minimal left base fibrosis/scarring. Remaining heart, lungs, and bony thorax normal. Impression: 1. A few mild small and large bowel air-fluid leveling, ileus versus enterocolitis. Obstruction not completely excluded in the right clinical setting. 2. Nonacute 1 view chest.
[2017-12-05] MEDS ORDERED: Sodium Chloride 0.9% 1000 ML 1,000 ML ONE (14:59)
[2017-12-05] MEDS ORDERED: Zofran 4 MG/2 ML VIAL ONE (14:59)
[2017-12-05 15:48] LABS: Lactic Acid 2.1 (0.4-2.0)
[2017-12-05 15:52] LABS: BASOPHIL % 0.2 % (0.0-0.4); Basophil (Absolute #) 0.04 (0-0.4); Eosinophil % 0.3 % (0.00-5.0); Eosinophil (Absolute #) 0.06 (0-0.5); Granulocytes % 89.5 % (36.0-66.0); Hematocrit 42.4 % (35-47); Hemoglobin 13.3 gm/dl (12.0-16.0); Lymphocyte (Absolute #) 0.99 (1.0-4.6); Lymphocytes % 5.5 % (24.0-44.0); Mean Cell Volume 100.2 fl (78-100); Mean Corpuscular Hemoglobin 31.4 pg (26-32); Mean Corpuscular Hgb Concent. 31.4 g/dl (32-36); Mean Platelet Volume 9.2 fl (6-9.5); Monocyte (Absolute #) 0.81 (0.0-1.3); Monocytes % 4.5 % (0.0-12.0); Platelet Count 833 K/mm3 (150-450); Red Blood Count 4.23 M/mm3 (4.1-5.4); Red Cell Distribution Width 13.6 % (11.5-14.0); White Blood Count 17.9 K/mm3 (4.0-10.5)
[2017-12-05 16:31] LABS: ALBUMIN 3.2 g/dL (3.4-5.0); ANION GAP 10.4 MEQ/L (5-15); BILIRUBIN,TOTAL 0.6 mg/dL (0.2-1.0); Calcium 10.8 mg/dL (8.5-10.1); Carbon Dioxide 35.9 mEq/L (21-32); Creatinine 1 1.95 mg/dl (0.55-1.30); Total Protein 8.4 gm/dL (6.4-8.2)
[2017-12-05 16:56] LABS: Appearance CLOUDY (CLEAR); Bacteria MANY /HPF (NEGATIVE); Bilirubin MODERATE (NEGATIVE); Blood 50 Ery/ul (0-5); Epithelial Cells MANY /HPF (FEW); Glucose NEGATIVE (NEGATIVE); Ketones NEGATIVE (NEGATIVE); Leukocyte Esterase 2+ (NEGATIVE); Nitrite NEGATIVE (NEGATIVE); Protein,Urine Dip 30 (Negative); Specific Gravity 1.025 (1.005-1.025); Urobilinogen NORMAL mg/dL (0-1); WBC 15-25 /HPF (0-5)
[2017-12-05] MEDS ORDERED: Unasyn 1.5GM / NaCl 100ML 1.5 GM/100 ML IVPB IV STA (17:05)
[2017-12-05] MEDS ORDERED: Unasyn 1.5GM / NaCl 100ML 1.5 GM/100 ML IVPB ONE (17:17)
[2017-12-05 17:59] LABS: Lactic Acid 2.1 (0.4-2.0)
[2017-12-05] MEDS: Unasyn 1.5GM / NaCl 100ML 1.5 GM/100 ML IVPB IV SCH ×2 (18:31→23:19)
[2017-12-05] MEDS: Dextrose 5% -0.45 NaCl 1000 ML 1,000 ML IV SCH (18:37)
[2017-12-05] MEDS: Zofran 4 MG/2 ML VIAL IV PRN (19:22)
--- NOTE | 2017-12-05 19:53 | PCM.HP ---
History of Present Illness - Chief Complaint Chief Complaint: R/O BOWEL OBSTRUCTION Date: 12/05/17 History of Present Illness: is a 62 year old female. who had surgery about 4 weeks ago for hysterectomy and developed diarrhea and chills 4 days ago and then 2 days ago the diarrhea stopped and she developed vomiting and was still feeling fever and chills. She came to the ED. She was recently started on tramadol for the pain post operatively and was having pain radiating down the back of her legs. No difficulty urinating. She denies shortenss of breath, cough or chest pain. She states she was not taking her anti diarrheals when she stopped having bm no previous bowel obstructions. - Review of Systems Constitutional: Fever, Chills Eyes: No Symptoms Ears, Nose, & Throat: No Symptoms Respiratory: No Cough, No Short Of Breath Cardiac: No Chest Pain, No Edema, No Syncope Abdominal/Gastrointestinal: Abdominal Pain, Nausea, Vomiting Genitourinary Symptoms: No Dysuria Musculoskeletal: Back Pain, No Neck Pain, No Joint Redness Skin: No Rash Neurological: No Dizziness, No Focal Weakness, No Sensory Changes Psychological: No Symptoms Endocrine: No Symptoms Hematologic/Lymphatic: No Symptoms Immunological/Allergic: No Symptoms Medications & Allergies Home Medications: Home Medication List Bacillus Coagulans [Probiotic] 1 each PO DAILY 07/14/17 [History Confirmed 12/05] Calcium Carbonate/Vitamin D3 [Calcium 500+D Tablet Chew] 1 each PO DAILY [History Confirmed 12/05/17] Diazepam [Valium] 10 mg PO QID 07/14/17 [History Confirmed 12/05/17] Diphenoxylate HCl/Atropine [Lomotil 2.5-0.025 mg Tablet] 1 each PO QID 07/14/17 [History Confirmed 12/05/17] Esomeprazole Magnesium [Nexium] 40 mg PO DAILY 07/14/17 [History Confirmed 12/05] Gabapentin [Neurontin] 300 mg PO TID 07/14/17 [History Confirmed 12/05/17] Levothyroxine Sodium 75 Mcg [Synthroid 75 Mcg] 75 mcg PO DAILY 07/14/17 [ History Confirmed 12/05/17] Mirtazapine [Remeron] 15 mg PO QHS 07/14/17 [History Confirmed 12/05/17] Teriparatide [Forteo] 2.4 ml SQ DAILY 07/14/17 [History Confirmed 12/05/17] Cholecalciferol (Vitamin D3) [Vitamin D] 10,000 unit PO UD 10/06/17 [History Confirmed 12/05/17] Colesevelam HCl [Welchol] 625 mg PO DAILY PRN PRN 10/06/17 [History Confirmed ] Megestrol Acetate 40 mg [Megace 40 MG] 40 mg PO DAILY 10/06/17 [History Confirmed 12/05/17] Hydrocodone/Acetaminophen [[place] 5-325 Tablet] 1 each PO Q4HPRN PRN #30 tablet MDD 6 11/13/17 [Rx Confirmed 12/05/17] Allergies/Adverse Reactions: Allergies Allergy/AdvReac Type Severity Reaction Status Date / Time aspirin Allergy Nausea Verified 12/05/17 17:45 tape Allergy Uncoded 12/05/17 17:45 - Past Medical History Past Medical History: Yes Neurological History: Migraines ENT History: Cataracts Cardiac History: No Pertinent History Respiratory History: No Pertinent History Endocrine Medical History: Hypothyroidism Musculoskelatal History: Arthritis, Osteoporosis GI Medical History: GERD History: Other Pyscho-Social History: Anxiety Reproductive Disorders: No Pertinent History Comment: Frequent bladder infections, bladder dropped, urinary incontinence - Female History Are you now?: No - Past Surgical History Past Surgical History: Yes Neuro Surgical History: No Pertinent History Cardiac History: No Pertinent History Respiratory Surgery: No Pertinent History GI Surgical History: Cholecystectomy Genitourinary Surgical Hx: No Pertinent History Musculskeletal Surgical Hx: Orthopedic Surgery, Other Female Surgical History: Hysterectomy, Other Other Surgical History: Cyst removed from pelvis,KNEE SURGERY. Colonoscopy times 5. EGD times 4. BLADDER TIED UP - Social History Smoking Status: Former smoker How long have you smoked: 30years Exposure to second hand smoke: Yes Alcohol: None Drug Use: none - Physical Exam Vital Signs: Vital Signs - 24 hr Temp Pulse Resp BP Pulse Ox 12/05/17 18:04 98.0 F 98 H 18 114/63 93 L 12/05/17 17:35 98.0 F 98 H 18 114/63 93 L 12/05/17 17:07 94 L 12/05/17 17:00 78 16 132/78 97 12/05/17 15:38 88 16 151/71 97 12/05/17 14:16 20 102/65 12/05/17 13:40 97.6 F 96 H 20 116/67 94 L General Appearance: no apparent distress, alert Neurologic Exam: alert, oriented x 3, cooperative, normal mood/affect, nml cerebellar function, nml station & gait, sensation nml, No motor deficits Eye Exam: PERRL/EOMI, eyes nml inspection Ears, Nose, Throat Exam: normal ENT inspection, TMs normal, pharynx normal, moist mucous membranes Neck Exam: normal inspection, non-tender, supple, full range of motion Respiratory Exam: normal breath sounds, lungs clear, No respiratory distress Cardiovascular Exam: regular rate/rhythm, normal heart sounds, normal peripheral pulses Gastrointestinal/Abdomen Exam: soft, normal bowel sounds, tenderness, distention (mild well healed incision midline lower abdomen with no rebound or guarding and diffuse tendernesss), No mass Back Exam: normal inspection, normal range of motion, No CVA tenderness, No vertebral tenderness Extremity Exam: normal inspection, normal range of motion, pelvis stable Skin Exam: normal color, warm, dry, No rash Lymphatic Exam: No adenopathy Results - Labs Lab/Micro Results: Lab Results-Last 24 Hours 12/05/17 12/05/17 Range/Units 17:48 17:50 Lactic Acid 2.1 H 1.3 (0.4-2.0) Assessment/Plan (1) Acute kidney injury Current Visit: Yes Status: Acute Assessment & Plan: bolus in ed and maintenance fluids now repeat cmp in am ice chips for now has good bowel sounds no peritoneal signs stop antidiarrheal meds prn zofran if abdominal pain persisting or worsening or fever check CT abd/pelvis covered currently with unasyn await urine culture lovenox for ppx Code(s): N17.9 - ACUTE KIDNEY FAILURE, UNSPECIFIED (2) UTI (urinary tract infection) Current Visit: Yes Status: Acute Code(s): N39.0 - URINARY TRACT INFECTION, SITE NOT SPECIFIED (3) Vomiting Current Visit: Yes Status: Acute Code(s): R11.10 - VOMITING, UNSPECIFIED (4) Abdominal pain Current Visit: Yes Status: Acute Code(s): R10.9 - UNSPECIFIED ABDOMINAL PAIN (5) Hypothyroidism Current Visit: Yes Status: Chronic Code(s): E03.9 - HYPOTHYROIDISM, UNSPECIFIED (6) Anxiety Current Visit: Yes Status: Chronic Code(s): F41.9 - ANXIETY DISORDER, UNSPECIFIED
[2017-12-05] MEDS: Pepcid 20 MG VIAL IV SCH (22:36)
[2017-12-05] MEDS: Valium 5 MG PO SCH (22:36)
[2017-12-05] MEDS: NEURONTIN 300 MG PO SCH (22:37)
[2017-12-05] MEDS: REMERON 30 MG PO SCH (22:37)
[2017-12-05] MEDS ORDERED: Sodium Chloride 0.9% 100 ML IVPB 100 ML IV ONE (23:15)
[2017-12-05] MEDS ORDERED: Unasyn 1.5GM Vial ONE (23:15)
[2017-12-06] MEDS: Zofran 4 MG/2 ML VIAL IV PRN (02:48)
[2017-12-06] MEDS ORDERED: Sodium Chloride 0.9% 100 ML IVPB 100 ML IV ONE (04:57)
[2017-12-06] MEDS ORDERED: Unasyn 1.5GM Vial ONE (04:57)
[2017-12-06] MEDS: Dextrose 5% -0.45 NaCl 1000 ML 1,000 ML IV SCH ×2 (05:26→18:25)
[2017-12-06] MEDS: Unasyn 1.5GM / NaCl 100ML 1.5 GM/100 ML IVPB IV SCH ×3 (05:26→18:25)
[2017-12-06 05:33] LABS: Granulocyte Absolute (ANC) 16.94 (1.4-6.9); Hemoglobin 12.1 gm/dl (12.0-16.0); Mean Cell Volume 100.3 fl (78-100); Mean Corpuscular Hemoglobin 31.9 pg (26-32); Mean Corpuscular Hgb Concent. 31.8 g/dl (32-36); Mean Platelet Volume 9.4 fl (6-9.5); Platelet Count 816 K/mm3 (150-450); Red Blood Count 3.79 M/mm3 (4.1-5.4); Red Cell Distribution Width 13.9 % (11.5-14.0); White Blood Count 20.2 K/mm3 (4.0-10.5)
[2017-12-06] MEDS: MORPHINE SULFATE 2 MG INJ IV PRN ×4 (05:51→20:44)
[2017-12-06 06:32] LABS: ALBUMIN 2.7 g/dL (3.4-5.0); ANION GAP 8.3 MEQ/L (5-15); BILIRUBIN,TOTAL 0.4 mg/dL (0.2-1.0); Calcium 10.2 mg/dL (8.5-10.1); Carbon Dioxide 32.3 mEq/L (21-32); Creatinine 1 1.5 mg/dl (0.55-1.30); Potassium 3.9 mEq/L (3.5-5.1); Total Protein 7.3 gm/dL (6.4-8.2)
[2017-12-06 06:48] LABS: ANISOCYTOSIS 1+; Lymphocytes 8 % (24-44); Monocyte 4 % (0.0-12.0); Neutrophils 88 % (36.0-66.0); Poikilocytosis 1+; Total Cells Counted 100
[2017-12-06 06:50] LABS: Platelet Estimate INCREASED (NORMAL)
--- NOTE | 2017-12-06 08:17 | PCM.NOTE ---
Date and Time: 12/06/17816 Subjective Assessment: still having abdominal pain vomited at 07:00 had cramps with the ice chips no fever or chills feels her stomach has pressure Objective Exam General Appearance: no apparent distress, alert Neurologic Exam: alert, oriented x 3, cooperative, normal mood/affect, nml cerebellar function, sensation nml, No motor deficits Skin Exam: normal color, warm, dry Eye Exam: PERRL, EOMI, eyes nml inspection Ears, Nose, Throat Exam: normal ENT inspection, pharynx normal, moist mucous membranes Neck Exam: normal inspection, non-tender, supple, full range of motion Respiratory Exam: normal breath sounds, lungs clear, No respiratory distress Cardiovascular Exam: regular rate/rhythm, normal heart sounds Gastrointestinal/Abdomen Exam: soft, tenderness (worst left lower quadrant), No normal bowel sounds (present but hypoactive), No mass, No guarding, No rebound Extremity Exam: normal inspection, normal range of motion Back Exam: normal inspection, normal range of motion, No CVA tenderness, No vertebral tenderness Pelvic Exam: deferred Rectal Exam: deferred OBJECTIVE DATA Vital Signs: Vital Signs - 24 hr Temp Pulse Resp BP Pulse Ox 12/06/17 07:29 98.3 F 94 H 18 104/53 91 L 12/06/17 04:00 98.8 F 100 H 17 124/64 93 L 12/06/17 00:00 99.0 F 107 H 16 125/68 94 L 12/05/17 20:00 98.9 F 97 H 17 114/58 93 L 12/05/17 18:04 98.0 F 98 H 18 114/63 93 L 12/05/17 17:35 98.0 F 98 H 18 114/63 93 L 12/05/17 17:07 94 L 12/05/17 17:00 78 16 132/78 97 12/05/17 15:38 88 16 151/71 97 12/05/17 14:16 20 102/65 12/05/17 13:40 97.6 F 96 H 20 116/67 94 L Pain Assessment - Last Documented Pain Intensity 0 Pain Scale Used [facility] Intake and Output: Intake & Output 12/03/17 12/04/17 12/05/17 12/06/17 11:59 11:59 11:59 11:59 Intake Total 997 Output Total 300 Balance 697 Weight 49.5 kg Lab Results: Lab Results-Last 24 Hours 12/05/17 12/05/17 12/06/17 Range/Units 17:48 17:50 05:19 WBC 20.2 H (4.0-10.5) K/mm3 RBC 3.79 L (4.1-5.4) M/mm3 Hgb 12.1 (12.0-16.0) gm/dl Hct 38.0 (35-47) % MCV 100.3 H (78-100) fl MCH 31.9 (26-32) pg MCHC 31.8 L (32-36) g/dl RDW 13.9 (11.5-14.0) % Plt Count 816 H (150-450) K/mm3 MPV 9.4 (6-9.5) fl Segmented Neutrophils 88 H (36.0-66.0) % Lymphocytes (Manual) 8 L (24-44) % Monocytes (Manual) 4 (0.0-12.0) % Differential Comment ABNORMAL Platelet Estimate INCREASED (NORMAL) Poikilocytosis 1+ Anisocytosis 1+ Sodium (136-145) mEq/L Potassium (3.5-5.1) mEq/L Chloride (98-107) mEq/L Carbon Dioxide (21-32) mEq/L Anion Gap (5-15) MEQ/L BUN (9-20) mg/dL Creatinine (0.55-1.30) mg/dl Estimated GFR ML/MIN Glucose (70-110) MG/DL Lactic Acid 2.1 H 1.3 (0.4-2.0) Calcium (8.5-10.1) mg/dL Total Bilirubin (0.2-1.0) mg/dL AST (15-37) U/L ALT (12-78) U/L Alkaline Phosphatase (46-116) U/L Serum Total Protein (6.4-8.2) gm/dL Albumin (3.4-5.0) g/dL 12/06/17 Range/Units 05:19 WBC (4.0-10.5) K/mm3 RBC (4.1-5.4) M/mm3 Hgb (12.0-16.0) gm/dl Hct (35-47) % MCV (78-100) fl MCH (26-32) pg MCHC (32-36) g/dl RDW (11.5-14.0) % Plt Count (150-450) K/mm3 MPV (6-9.5) fl Segmented Neutrophils (36.0-66.0) % Lymphocytes (Manual) (24-44) % Monocytes (Manual) (0.0-12.0) % Differential Comment Platelet Estimate (NORMAL) Poikilocytosis Anisocytosis Sodium 140 (136-145) mEq/L Potassium 3.9 (3.5-5.1) mEq/L Chloride 103 (98-107) mEq/L Carbon Dioxide 32.3 H (21-32) mEq/L Anion Gap 8.3 (5-15) MEQ/L BUN 23 H (9-20) mg/dL Creatinine 1.50 H (0.55-1.30) mg/dl Estimated GFR 37 ML/MIN Glucose 143 H (70-110) MG/DL Lactic Acid (0.4-2.0) Calcium 10.2 H (8.5-10.1) mg/dL Total Bilirubin 0.40 (0.2-1.0) mg/dL AST 26 (15-37) U/L ALT 15 (12-78) U/L Alkaline Phosphatase 118 H (46-116) U/L Serum Total Protein 7.3 (6.4-8.2) gm/dL Albumin 2.7 L (3.4-5.0) g/dL Radiology Exams: Radiology Procedures Category Date Time Status ABDOMEN AND PELVIS W/0 CONTRAS [CT] Routine Exams 12/06/17 08:09 Ordered Assessment/Plan (1) Acute kidney injury Current Visit: Yes Status: Acute Assessment & Plan: improving with hydration with the vomiting and abdominal pain check ct rule out bowel obstruction with recent surgery and consult her surgeon remain npo on unasyn cultures pending Code(s): N17.9 - ACUTE KIDNEY FAILURE, UNSPECIFIED (2) UTI (urinary tract infection) Current Visit: Yes Status: Acute Code(s): N39.0 - URINARY TRACT INFECTION, SITE NOT SPECIFIED (3) Vomiting Current Visit: Yes Status: Acute Code(s): R11.10 - VOMITING, UNSPECIFIED (4) Abdominal pain Current Visit: Yes Status: Acute Code(s): R10.9 - UNSPECIFIED ABDOMINAL PAIN (5) Hypothyroidism Current Visit: Yes Status: Chronic Code(s): E03.9 - HYPOTHYROIDISM, UNSPECIFIED (6) Anxiety Current Visit: Yes Status: Chronic Code(s): F41.9 - ANXIETY DISORDER, UNSPECIFIED
[2017-12-06] MEDS ORDERED: FLUCELVAX QUAD 2017-2018 SYR IM ONE (10:00)
[2017-12-06] MEDS ORDERED: NON-FORMULARY ITEM (Esomeprazole Magnesium [Nexium] 40 MG) PO SCH (10:00)
[2017-12-06] MEDS ORDERED: NON-FORMULARY ITEM (Bacillus Coagulans [Probiotic] 1 EACH) PO SCH (10:00)
--- NOTE | 2017-12-06 10:18 | XRAY ---
Indication: Bloating, nausea, and vomiting. Status post bladder surgery November 10, 2017. Multiple contiguous axial images obtained through the abdomen and pelvis without contrast as ordered. Comparison: October 18, 2013. Lung bases demonstrates new mild bibasilar dependent atelectasis, tiny right effusion, and patchy lingular airspace opacity. Stable left base discoid atelectasis/scarring. Heart is not enlarged. Stomach is now markedly fluid distended. The small bowel loops are also abnormally fluid distended to level of the distal ileum up to 3.7 cm in diameter with some fluid leveling. The entire colon is decompressed. Findings favor distal small bowel obstruction. There is small abdominal/pelvic free fluid. No walled off fluid collection or free air. Again previous hysterectomy and cholecystectomy. Remaining liver, pancreas, spleen, adrenal glands, kidneys, ureters, and bladder appear unremarkable for noncontrast exam. There remains mild aortoiliac calcifications without AAA. Osseous structures intact again with mild spinal degenerative changes greatest at the lumbosacral junction. Impression: 1. New CT findings favoring distal small bowel obstruction. 2. New abdominal/pelvic free fluid presumed reactive. 3. New lingular airspace disease and tiny right base effusion. Comment: Telephone report was given to the ordering clinician Dr. Torres at 1008 hrs. on December 06, 2017. CTDI 8.50
[2017-12-06] MEDS: ENOXAPARIN SODIUM SQ SCH (10:59)
[2017-12-06] MEDS: Pepcid 20 MG VIAL IV SCH ×2 (11:08→22:09)
[2017-12-06] MEDS: NEURONTIN 300 MG PO SCH ×3 (11:09→22:09)
[2017-12-06] MEDS: Acidophilus TABLET PO SCH (11:09)
[2017-12-06] MEDS: SYNTHROID 75 MCG PO SCH (11:09)
[2017-12-06] MEDS: Valium 5 MG PO SCH ×4 (11:09→22:10)
[2017-12-06] MEDS: Protonix 40MG Tablet PO SCH (11:09)
[2017-12-06] MEDS ORDERED: FLAGYL 500 MG IVPB 500 MG/100 ML BAG IV ONE (22:08)
[2017-12-06] MEDS: REMERON 30 MG PO SCH (22:09)
[2017-12-06] MEDS: Zosyn 3.375GM/100 Ml D5W 3.375 GM/100 ML IVPB IV SCH (22:12)
[2017-12-06] MEDS: FLAGYL 500 MG IVPB 500 MG/100 ML BAG IV SCH (22:45)
[2017-12-07] MEDS: Zosyn 3.375GM/100 Ml D5W 3.375 GM/100 ML IVPB IV SCH ×2 (00:20→06:04)
[2017-12-07] MEDS: FLAGYL 500 MG IVPB 500 MG/100 ML BAG IV SCH ×5 (00:21→17:14)
[2017-12-07] MEDS: MORPHINE SULFATE 2 MG INJ IV PRN ×3 (01:41→14:58)
[2017-12-07 05:43] LABS: BASOPHIL % 0.2 % (0.0-0.4); Basophil (Absolute #) 0.03 (0-0.4); Eosinophil % 3.9 % (0.00-5.0); Granulocyte Absolute (ANC) 9.54 (1.4-6.9); Granulocytes % 74.1 % (36.0-66.0); Hematocrit 34.2 % (35-47); Hemoglobin 10.6 gm/dl (12.0-16.0); Lymphocyte (Absolute #) 1.64 (1.0-4.6); Lymphocytes % 12.7 % (24.0-44.0); Mean Cell Volume 102.1 fl (78-100); Mean Corpuscular Hemoglobin 31.6 pg (26-32); Mean Platelet Volume 9.5 fl (6-9.5); Monocyte (Absolute #) 1.17 (0.0-1.3); Monocytes % 9.1 % (0.0-12.0); Platelet Count 622 K/mm3 (150-450); Red Blood Count 3.35 M/mm3 (4.1-5.4); Red Cell Distribution Width 13.4 % (11.5-14.0); White Blood Count 12.9 K/mm3 (4.0-10.5)
[2017-12-07 06:02] LABS: ALBUMIN 2.4 g/dL (3.4-5.0); ALKALINE PHOSPHATASE 101 U/L (46-116); ANION GAP 9.4 MEQ/L (5-15); BLOOD UREA NITROGEN 10 mg/dL (9-20); CHLORIDE 105 mEq/L (98-107); Calcium 9.5 mg/dL (8.5-10.1); Carbon Dioxide 31.1 mEq/L (21-32); Creatinine 1 0.96 mg/dl (0.55-1.30); EST GLOMERULAR FILTRATION RATE > 60 ML/MIN; Glucose 116 MG/DL (70-110); Potassium 3.7 mEq/L (3.5-5.1); SGOT/AST 21 U/L (15-37); SGPT/ALT 13 U/L (12-78); SODIUM 142 mEq/L (136-145); Total Protein 6.4 gm/dL (6.4-8.2)
[2017-12-07] MEDS: Dextrose 5% -0.45 NaCl 1000 ML 1,000 ML IV SCH ×2 (06:14→17:21)
[2017-12-07] MEDS ORDERED: TYLENOL 325 MG PO PRN (06:17)
--- NOTE | 2017-12-07 08:09 | CONS ---
CONSULT DATE: 12/06/2017 The patient is seen for Dr. Alan. HISTORY: The patient is a 62 year-old patient of Dr. Alan who had bladder tie up procedure earlier this month. She had some abdominal pain, some vomiting, aches and pains. She was admitted on 12/05/2017. It does not look like an NG was placed at that time. Question of whether enterocolitis versus partial obstruction or ileus. Either way CT scan today showed a little distended stomach. I am not sure if the results were available earlier but NG still has not been placed. She had some alternating diarrhea and constipation since the surgery. No bowel movement earlier today. Temperature max is 99F. She has been mainly afebrile, pulse 98 to 100, blood pressure 124/64. White blood cell count around 20, hemoglobin 12.1, PLT count around 800,000. Lipase is 172. PAST SURGICAL HISTORY: As noted above. She has had a cholecystectomy, hysterectomy, knee surgery, cyst removed from pelvis, colonoscopy in the past, EGD in the past as well as a recent bladder tie up. MEDICATIONS: Prior to admission include Probiotic, vitamin D plus calcium 500, vitamin D3, Lomotil, Valium, Nexium, Forteo, Synthroid, Remeron, vitamin D3, Carson, Welchol, Megace. ALLERGIES: ASPIRIN, TAPE. FAMILY HISTORY: Negative in regards to this problem. SOCIAL HISTORY: Former smoker. REVIEW OF SYSTEMS: Twelve systems reviewed per admission assessment. No chest pain or palpitations other systems negative or noncontributory as above and per preadmission questionnaire. She has several distended loops of bowel but has not had trial of NG decompression yet. She does wear glasses. PHYSICAL EXAMINATION: GENERAL: Nontoxic and in no acute distress. HEENT: Sclera nonicteric. She is wearing glasses. NECK: No JVD. CHEST: Equal excursion, nonlabored breathing. CVS: Regular rate and rhythm. ABDOMEN: Soft. She does have some mild distention. Her old incision is clean, dry and intact, healing well. There are no peritoneal signs currently. She had some mild tenderness, some mild distention but again a very soft abdomen. There is no obvious palpable hernia at this time. EXTREMITIES: No significant edema. NEURO: Alert, moving extremities symmetrically. IMPRESSION: A 62 year-old female with past history of bladder procedure, history of urinary tract infection, has some distended loops of small bowel, had some fluid in the colon as well. Question whether she has a partial obstruction versus ileus, slight enterocolitis. I feel she is nontoxic. Her abdomen is very soft. I do not feel she needs emergent surgery but definitely feels she needs a trial of NG decompression. On serial films if she is not improving in a day and a half then Dr. Alan will decide whether to consider small bowel follow through versus other intervention. She understands the plan and agrees to trial NG decompression as she in the hospital the past day or so and have not tried that yet. Again, no emergent surgery is necessary but definitely needs trial NG decompression. If she fails to improve there is possibility she could need surgical intervention versus small bowel follow through. Either way she has elevated white blood cell count and is on Zosyn and Flagyl as she had some diarrhea before to decrease the risk of developing Clostridium difficile and to treat any potential enterocolitis if that could be a factor in ileus versus partial obstruction. She and her agree to the plan. Have NG placed, check serial films. Will update Dr. Alan that she is here.
[2017-12-07] MEDS ORDERED: Levofloxacin 500MG/100ML D5W 500 MG/100 ML BAG IV STA (08:24)
--- NOTE | 2017-12-07 08:33 | PCM.NOTE ---
Date and Time: 12/07/17832 Subjective Assessment: She is stillhaving some abdominal pains worse on the left lower side had NG placed tolerating well passed small amount of flatulence no BM Objective Exam General Appearance: no apparent distress, alert Neurologic Exam: alert, oriented x 3, cooperative, normal mood/affect, nml cerebellar function, sensation nml, No motor deficits Skin Exam: normal color, warm, dry Eye Exam: PERRL, EOMI, eyes nml inspection Ears, Nose, Throat Exam: normal ENT inspection, pharynx normal, moist mucous membranes Neck Exam: normal inspection, non-tender, supple, full range of motion Respiratory Exam: normal breath sounds, lungs clear, No respiratory distress Cardiovascular Exam: regular rate/rhythm, normal heart sounds Gastrointestinal/Abdomen Exam: soft, tenderness (diffuse worse in left lower quadrant. midline lower abdominal incision well healed), distention, No mass, No guarding, No ecchymosis Extremity Exam: normal inspection, normal range of motion Back Exam: normal inspection, normal range of motion, No CVA tenderness, No vertebral tenderness Pelvic Exam: deferred Rectal Exam: deferred OBJECTIVE DATA Vital Signs: Vital Signs - 24 hr Temp Pulse Resp BP Pulse Ox 12/07/17 07:57 97.7 F 89 18 136/69 93 L 12/07/17 03:20 97.7 F 95 H 18 139/63 93 L 12/06/17 23:30 98.5 F 89 20 151/72 93 L 12/06/17 19:35 98.6 F 87 16 95/52 94 L 12/06/17 16:00 98.1 F 90 18 116/58 91 L 12/06/17 11:34 98.3 F 99 H 18 94/54 91 L Pain Assessment - Last Documented Pain Intensity 5 Pain Scale Used 0-10 Pain Scale Intake and Output: Intake & Output 12/04/17 12/05/17 12/06/17 12/07/17 11:59 11:59 11:59 11:59 Intake Total 0 Output Total 1625 Balance -1625 Weight 49.2 kg Lab Results: Lab Results-Last 24 Hours 12/07/17 12/07/17 Range/Units 05:05 05:05 WBC 12.9 H (4.0-10.5) K/mm3 RBC 3.35 L (4.1-5.4) M/mm3 Hgb 10.6 L (12.0-16.0) gm/dl Hct 34.2 L (35-47) % MCV 102.1 H (78-100) fl MCH 31.6 (26-32) pg MCHC 31.0 L (32-36) g/dl RDW 13.4 (11.5-14.0) % Plt Count 622 H (150-450) K/mm3 MPV 9.5 (6-9.5) fl Gran % 74.1 H (36.0-66.0) % Lymphocytes % 12.7 L (24.0-44.0) % Monocytes % 9.1 (0.0-12.0) % Eosinophils % 3.9 (0.00-5.0) % Basophils % 0.2 (0.0-0.4) % Basophils # 0.03 (0-0.4) Sodium 142 (136-145) mEq/L Potassium 3.7 (3.5-5.1) mEq/L Chloride 105 (98-107) mEq/L Carbon Dioxide 31.1 (21-32) mEq/L Anion Gap 9.4 (5-15) MEQ/L BUN 10 (9-20) mg/dL Creatinine 0.96 (0.55-1.30) mg/dl Estimated GFR > 60 ML/MIN Glucose 116 H (70-110) MG/DL Calcium 9.5 (8.5-10.1) mg/dL Total Bilirubin 0.30 (0.2-1.0) mg/dL AST 21 (15-37) U/L ALT 13 (12-78) U/L Alkaline Phosphatase 101 (46-116) U/L Serum Total Protein 6.4 (6.4-8.2) gm/dL Albumin 2.4 L (3.4-5.0) g/dL Radiology Exams: Radiology Procedures Category Date Time Status ABDOMEN 2 VIEW Routine Exams 12/07/17 Ordered Assessment/Plan (1) Small bowel obstruction Current Visit: Yes Status: Acute Assessment & Plan: NG in place to low intermittent suction Dr. Duque saw last night and plans to continue bowel decompression and serial abdominal x-ray and Dr. Alan to evaluate for resolution vs surgical options on will check xray today ted improved the urine culture shows 2 organisms in order to cover both organisms will change abx from zosyn to levaquin per sensitivities and continue flagyl as ordered per surgery Code(s): K56.609 - UNSP INTESTNL OBST, UNSP TO PARTIAL VERSUS COMPLETE OBST (2) UTI (urinary tract infection) Current Visit: Yes Status: Acute Code(s): N39.0 - URINARY TRACT INFECTION, SITE NOT SPECIFIED (3) Acute kidney injury Current Visit: Yes Status: Resolved Code(s): N17.9 - ACUTE KIDNEY FAILURE, UNSPECIFIED (4) Vomiting Current Visit: Yes Status: Acute Code(s): R11.10 - VOMITING, UNSPECIFIED (5) Abdominal pain Current Visit: Yes Status: Acute Code(s): R10.9 - UNSPECIFIED ABDOMINAL PAIN (6) Hypothyroidism Current Visit: Yes Status: Chronic Code(s): E03.9 - HYPOTHYROIDISM, UNSPECIFIED (7) Anxiety Current Visit: Yes Status: Chronic Code(s): F41.9 - ANXIETY DISORDER, UNSPECIFIED
[2017-12-07] MEDS: ENOXAPARIN SODIUM SQ SCH (10:23)
[2017-12-07] MEDS: Protonix 40MG Tablet PO SCH (10:24)
[2017-12-07] MEDS: NEURONTIN 300 MG PO SCH ×3 (10:24→21:33)
[2017-12-07] MEDS: Acidophilus TABLET PO SCH (10:24)
[2017-12-07] MEDS: Pepcid 20 MG VIAL IV SCH ×2 (10:24→21:33)
[2017-12-07] MEDS: SYNTHROID 75 MCG PO SCH (10:24)
[2017-12-07] MEDS: Valium 5 MG PO SCH ×4 (10:24→21:34)
--- NOTE | 2017-12-07 11:30 | XRAY ---
Indication: Small bowel obstruction. Comparison: December 05, 2017. Supine and left lateral decubitus abdomen again demonstrates cholecystotomy clips with a few small bowel air-fluid leveling with paucity of colonic bowel gas favoring CT proven distal small bowel obstruction essentially unchanged. No free air or new abnormalities.
[2017-12-07] MEDS: Zofran 4 MG/2 ML VIAL IV PRN ×2 (14:58→21:33)
--- NOTE | 2017-12-07 15:02 | XRAY ---
Indication: NG tube placement. Comparison: Abdomen exam taken earlier in the day. Portable chest demonstrates interval NG tube advancement with the tip now slightly in the left upper quadrant abdomen in the stomach. Recommend further advancement if possible. Lungs demonstrates bibasilar discoid atelectasis. Remaining heart, lungs, and bony thorax unremarkable.
[2017-12-07] MEDS: REMERON 30 MG PO SCH (21:34)
[2017-12-08] MEDS: FLAGYL 500 MG IVPB 500 MG/100 ML BAG IV SCH ×3 (00:07→16:51)
[2017-12-08] MEDS: MORPHINE SULFATE 2 MG INJ IV PRN ×3 (00:13→09:37)
[2017-12-08] MEDS: Dextrose 5% -0.45 NaCl 1000 ML 1,000 ML IV SCH ×2 (04:01→15:57)
[2017-12-08 05:49] LABS: BASOPHIL % 0.2 % (0.0-0.4); Basophil (Absolute #) 0.03 (0-0.4); Eosinophil % 2.5 % (0.00-5.0); Eosinophil (Absolute #) 0.31 (0-0.5); Granulocyte Absolute (ANC) 9.75 (1.4-6.9); Granulocytes % 77.1 % (36.0-66.0); Hematocrit 32.5 % (35-47); Hemoglobin 10.1 gm/dl (12.0-16.0); Lymphocyte (Absolute #) 1.38 (1.0-4.6); Lymphocytes % 10.9 % (24.0-44.0); Mean Cell Volume 102.2 fl (78-100); Mean Corpuscular Hgb Concent. 31.1 g/dl (32-36); Mean Platelet Volume 9.3 fl (6-9.5); Monocyte (Absolute #) 1.18 (0.0-1.3); Monocytes % 9.3 % (0.0-12.0); Platelet Count 534 K/mm3 (150-450); Red Blood Count 3.18 M/mm3 (4.1-5.4); Red Cell Distribution Width 13.2 % (11.5-14.0); White Blood Count 12.7 K/mm3 (4.0-10.5)
[2017-12-08 05:52] LABS: Mean Corpuscular Hemoglobin 31.7 pg (26-32)
[2017-12-08 06:19] LABS: ALBUMIN 2.3 g/dL (3.4-5.0); ALKALINE PHOSPHATASE 102 U/L (46-116); ANION GAP 6.2 MEQ/L (5-15); BLOOD UREA NITROGEN 3 mg/dL (9-20); CHLORIDE 107 mEq/L (98-107); Calcium 9.3 mg/dL (8.5-10.1); Carbon Dioxide 33.4 mEq/L (21-32); Creatinine 1 0.89 mg/dl (0.55-1.30); EST GLOMERULAR FILTRATION RATE > 60 ML/MIN; Glucose 118 MG/DL (70-110); Potassium 3.6 mEq/L (3.5-5.1); SGOT/AST 20 U/L (15-37); SGPT/ALT 11 U/L (12-78); SODIUM 143 mEq/L (136-145); Total Protein 6.4 gm/dL (6.4-8.2)
--- NOTE | 2017-12-08 08:45 | XRAY ---
Indication: NG tube placement. Comparison: One day earlier. Portable chest demonstrates interval advancement of the NG tube with the tip in the stomach. Stable bibasilar discoid atelectasis with new tiny bibasilar effusions. Heart is not enlarged. Comment: Preliminary interpretation was made by [facility]. No discrepancy.
--- NOTE | 2017-12-08 08:47 | XRAY ---
Indication: Obstruction. Ileus versus enterocolitis. Comparison: One day earlier. 2 views of the abdomen unchanged again demonstrating a few small bowel air-fluid leveling with paucity of colonic bowel gas favoring CT proven distal small bowel obstruction. Again cholecystectomy clips and NG tube tip now in the stomach. No new abnormalities.
[2017-12-08] MEDS: SYNTHROID 75 MCG PO SCH (09:36)
[2017-12-08] MEDS: Protonix 40MG Tablet PO SCH (09:36)
[2017-12-08] MEDS: Acidophilus TABLET PO SCH (09:36)
[2017-12-08] MEDS: Valium 5 MG PO SCH ×4 (09:36→22:23)
[2017-12-08] MEDS: NEURONTIN 300 MG PO SCH ×3 (09:36→22:23)
[2017-12-08] MEDS: Levofloxacin 500MG/100ML D5W 500 MG/100 ML BAG IV SCH (09:37)
[2017-12-08] MEDS: ENOXAPARIN SODIUM SQ SCH (09:37)
[2017-12-08] MEDS: Pepcid 20 MG VIAL IV SCH ×2 (09:37→22:24)
[2017-12-08] MEDS: Zofran 4 MG/2 ML VIAL IV PRN (12:26)
--- NOTE | 2017-12-08 17:53 | PCM.NOTE ---
Date and Time: 12/08/171748 Subjective Assessment: no bm minimal or no flatulance still having abodominal pain the ng is still draining she inadvertently pulled it out last night while in restroom and it was replaced feels fullness still in abdomen and chest area. Objective Exam General Appearance: no apparent distress, thin Neurologic Exam: alert, oriented x 3 Skin Exam: warm, dry Ears, Nose, Throat Exam: dry mucous membranes Neck Exam: non-tender, supple Respiratory Exam: normal breath sounds, lungs clear Cardiovascular Exam: regular rate/rhythm, normal heart sounds Gastrointestinal/Abdomen Exam: tenderness (diffuse worse in the lower quadrants) , distention, No normal bowel sounds (diminshed) Extremity Exam: normal inspection OBJECTIVE DATA Vital Signs: Vital Signs - 24 hr Temp Pulse Resp BP Pulse Ox 12/08/17 16:00 98.0 F 95 H 16 113/60 90 L 12/08/17 11:23 98.0 F 93 H 20 112/55 93 L 12/08/17 07:27 98.0 F 92 H 20 128/67 91 L 12/08/17 07:05 91 L 12/08/17 04:00 98.9 F 97 H 20 121/59 89 L 12/07/17 23:32 98.5 F 101 H 18 147/68 93 L 12/07/17 20:00 98.6 F 100 H 16 125/61 98 Pain Assessment - Last Documented Pain Intensity 4 Pain Scale Used 0-10 Pain Scale Intake and Output: Intake & Output 12/06/17 12/07/17 12/08/17 12/09/17 11:59 11:59 11:59 11:59 Intake Total 0 2354 Output Total 1625 4000 Balance -1625 -1646 Weight 49.2 kg 50.2 kg 50.2 kg Lab Results: Lab Results-Last 24 Hours 12/08/17 12/08/17 Range/Units 05:30 05:30 WBC 12.7 H (4.0-10.5) K/mm3 RBC 3.18 L (4.1-5.4) M/mm3 Hgb 10.1 L (12.0-16.0) gm/dl Hct 32.5 L (35-47) % MCV 102.2 H (78-100) fl MCH 31.7 (26-32) pg MCHC 31.1 L (32-36) g/dl RDW 13.2 (11.5-14.0) % Plt Count 534 H (150-450) K/mm3 MPV 9.3 (6-9.5) fl Gran % 77.1 H (36.0-66.0) % Lymphocytes % 10.9 L (24.0-44.0) % Monocytes % 9.3 (0.0-12.0) % Eosinophils % 2.5 (0.00-5.0) % Basophils % 0.2 (0.0-0.4) % Basophils # 0.03 (0-0.4) Sodium 143 (136-145) mEq/L Potassium 3.6 (3.5-5.1) mEq/L Chloride 107 (98-107) mEq/L Carbon Dioxide 33.4 H (21-32) mEq/L Anion Gap 6.2 (5-15) MEQ/L BUN 3 L (9-20) mg/dL Creatinine 0.89 (0.55-1.30) mg/dl Estimated GFR > 60 ML/MIN Glucose 118 H (70-110) MG/DL Calcium 9.3 (8.5-10.1) mg/dL Total Bilirubin 0.30 (0.2-1.0) mg/dL AST 20 (15-37) U/L ALT 11 L (12-78) U/L Alkaline Phosphatase 102 (46-116) U/L Serum Total Protein 6.4 (6.4-8.2) gm/dL Albumin 2.3 L (3.4-5.0) g/dL Radiology Exams: Radiology Procedures Category Date Time Status ABDOMEN 2 VIEW Routine Exams 12/07/17 10:55 Completed ABDOMEN 2 VIEW Routine Exams 12/08/17 07:00 Completed CHEST 1 VIEW (PORTABLE) Stat Exams 12/07/17 13:53 Completed CHEST 1 VIEW (PORTABLE) Urgent Exams 12/08/17 01:00 Completed SMALL BOWEL SERIES Routine Exams 12/09/17 Ordered Multi-Disciplinary Progress Notes: Multi-Disciplinary Progress Notes 12/08/17 10:45 (created 12/08/17 16:45) Case Management Note by Maribel Robles REVIEWED DISCHARGE PLAN, INDEPENDENT WITH ALL ADL'S. PLANS TO RETURN HOME WITH TO PRE EPISODIC LEVEL OF FNX. Initialized on 12/08/17 16:45 - END OF NOTE Assessment/Plan (1) Small bowel obstruction Current Visit: Yes Status: Acute Assessment & Plan: ng continue iv fluids ted resolved uti on levaquin flagyl per surgery mgmt of [facility] per surgery recs her is in the room with her and is very frustrated today that she is not better yet. We discussed in detail the treatment for small bowel obstruction with bowel decompression and rest with the hopes that it will self resolve and prevent any further surgeries that could increase the risk of further bowel obstructions in the future. Attempted to answer all questions but he still seemed frustrated that she was not better yet. Code(s): K56.609 - UNSP INTESTNL OBST, UNSP TO PARTIAL VERSUS COMPLETE OBST (2) UTI (urinary tract infection) Current Visit: Yes Status: Acute Code(s): N39.0 - URINARY TRACT INFECTION, SITE NOT SPECIFIED (3) Acute kidney injury Current Visit: Yes Status: Resolved Code(s): N17.9 - ACUTE KIDNEY FAILURE, UNSPECIFIED (4) Vomiting Current Visit: Yes Status: Acute Code(s): R11.10 - VOMITING, UNSPECIFIED (5) Abdominal pain Current Visit: Yes Status: Acute Code(s): R10.9 - UNSPECIFIED ABDOMINAL PAIN (6) Hypothyroidism Current Visit: Yes Status: Chronic Code(s): E03.9 - HYPOTHYROIDISM, UNSPECIFIED (7) Anxiety Current Visit: Yes Status: Chronic Code(s): F41.9 - ANXIETY DISORDER, UNSPECIFIED
[2017-12-08] MEDS: REMERON 30 MG PO SCH (22:23)
[2017-12-09] MEDS: FLAGYL 500 MG IVPB 500 MG/100 ML BAG IV SCH ×3 (00:27→16:39)
[2017-12-09] MEDS: Dextrose 5% -0.45 NaCl 1000 ML 1,000 ML IV SCH ×2 (03:16→23:38)
[2017-12-09] MEDS: Zofran 4 MG/2 ML VIAL IV PRN (04:51)
[2017-12-09 06:25] LABS: ALBUMIN 2.3 g/dL (3.4-5.0); ALKALINE PHOSPHATASE 98 U/L (46-116); ANION GAP 8.5 MEQ/L (5-15); BLOOD UREA NITROGEN 2 mg/dL (9-20); CHLORIDE 107 mEq/L (98-107); Calcium 9.4 mg/dL (8.5-10.1); Carbon Dioxide 31.3 mEq/L (21-32); Creatinine 1 0.79 mg/dl (0.55-1.30); EST GLOMERULAR FILTRATION RATE > 60 ML/MIN; Glucose 118 MG/DL (70-110); MAGNESIUM 1.5 mg/dL (1.8-2.4); Potassium 3.2 mEq/L (3.5-5.1); SGOT/AST 21 U/L (15-37); SGPT/ALT 12 U/L (12-78); SODIUM 144 mEq/L (136-145); Total Protein 6.6 gm/dL (6.4-8.2)
[2017-12-09] MEDS ORDERED: POTASSIUM CHLORIDE 20 mEq IN WATER 100ML 20 MEQ/100 ML BAG IV ONE (07:52)
[2017-12-09] MEDS ORDERED: Magnesium 1 Gm / 100 Ml D5W*** 100 ML IV SCH (08:00)
--- NOTE | 2017-12-09 08:00 | PCM.NOTE ---
Date and Time: 12/09/17 0800 Subjective Assessment: she has been up and walking and the pain persists and nausea persists she is very thirsty no flatulence no bowel movement. Objective Exam General Appearance: no apparent distress, alert Neurologic Exam: alert, oriented x 3, cooperative Skin Exam: normal color, warm, dry Eye Exam: PERRL, EOMI, eyes nml inspection Ears, Nose, Throat Exam: normal ENT inspection, dry mucous membranes (NG in place) Neck Exam: normal inspection, non-tender, supple, full range of motion Respiratory Exam: normal breath sounds, lungs clear, No respiratory distress Cardiovascular Exam: regular rate/rhythm, normal heart sounds Gastrointestinal/Abdomen Exam: soft, tenderness (diffuse worse bilateral lower quadrants), distention, No normal bowel sounds (hypoactive), No mass, No ecchymosis Extremity Exam: normal inspection Back Exam: No CVA tenderness Pelvic Exam: deferred Rectal Exam: deferred OBJECTIVE DATA Vital Signs: Vital Signs - 24 hr Temp Pulse Resp BP Pulse Ox 12/09/17 04:00 98.7 F 92 H 18 126/63 92 L 12/08/17 23:57 98.6 F 90 17 111/59 92 L 12/08/17 19:57 98.7 F 92 H 18 120/58 92 L 12/08/17 16:00 98.0 F 95 H 16 113/60 90 L 12/08/17 11:23 98.0 F 93 H 20 112/55 93 L Pain Assessment - Last Documented Pain Intensity 4 Pain Scale Used 0-10 Pain Scale Intake and Output: Intake & Output 12/06/17 12/07/17 12/08/17 12/09/17 11:59 11:59 11:59 11:59 Intake Total 0 2354 2413 Output Total 1625 4000 1150 Balance -1625 -1646 1263 Weight 49.2 kg 50.2 kg 50.2 kg Lab Results: Lab Results-Last 24 Hours 12/09/17 Range/Units 05:40 Sodium 144 (136-145) mEq/L Potassium 3.2 L (3.5-5.1) mEq/L Chloride 107 (98-107) mEq/L Carbon Dioxide 31.3 (21-32) mEq/L Anion Gap 8.5 (5-15) MEQ/L BUN 2 L (9-20) mg/dL Creatinine 0.79 (0.55-1.30) mg/dl Estimated GFR > 60 ML/MIN Glucose 118 H (70-110) MG/DL Calcium 9.4 (8.5-10.1) mg/dL Magnesium 1.5 L (1.8-2.4) mg/dL Total Bilirubin 0.30 (0.2-1.0) mg/dL AST 21 (15-37) U/L ALT 12 (12-78) U/L Alkaline Phosphatase 98 (46-116) U/L Serum Total Protein 6.6 (6.4-8.2) gm/dL Albumin 2.3 L (3.4-5.0) g/dL Radiology Exams: Radiology Procedures Category Date Time Status ABDOMEN 2 VIEW Routine Exams 12/07/17 10:55 Completed ABDOMEN 2 VIEW Routine Exams 12/08/17 07:00 Completed CHEST 1 VIEW (PORTABLE) Stat Exams 12/07/17 13:53 Completed CHEST 1 VIEW (PORTABLE) Urgent Exams 12/08/17 01:00 Completed SMALL BOWEL SERIES Routine Exams 12/09/17 Ordered Multi-Disciplinary Progress Notes: Multi-Disciplinary Progress Notes 12/08/17 10:45 (created 12/08/17 16:45) Case Management Note by Maribel Robles REVIEWED DISCHARGE PLAN, INDEPENDENT WITH ALL ADL'S. PLANS TO RETURN HOME WITH TO PRE EPISODIC LEVEL OF FNX. Initialized on 12/08/17 16:45 - END OF NOTE Assessment/Plan (1) Small bowel obstruction Current Visit: Yes Status: Acute Assessment & Plan: Continues NG to LIS will correct K and mag today recheck in am Dr. Alan following for general surgery small bowel follow through today was vomited and showed the obstruction and no movement past the stomach other then diffusion. She has had PICC placed today and TPN started today UTI covered with levaquin flagyl ordered per general surgery as well Code(s): K56.609 - UNSP INTESTNL OBST, UNSP TO PARTIAL VERSUS COMPLETE OBST (2) UTI (urinary tract infection) Current Visit: Yes Status: Acute Code(s): N39.0 - URINARY TRACT INFECTION, SITE NOT SPECIFIED (3) Acute kidney injury Current Visit: Yes Status: Resolved Code(s): N17.9 - ACUTE KIDNEY FAILURE, UNSPECIFIED (4) Vomiting Current Visit: Yes Status: Acute Code(s): R11.10 - VOMITING, UNSPECIFIED (5) Abdominal pain Current Visit: Yes Status: Acute Code(s): R10.9 - UNSPECIFIED ABDOMINAL PAIN (6) Hypothyroidism Current Visit: Yes Status: Chronic Code(s): E03.9 - HYPOTHYROIDISM, UNSPECIFIED (7) Anxiety Current Visit: Yes Status: Chronic Code(s): F41.9 - ANXIETY DISORDER, UNSPECIFIED
[2017-12-09] MEDS ORDERED: MAGNESIUM SULFATE IV SCH ×3 (09:00)
[2017-12-09] MEDS ORDERED: POTASSIUM CHLORIDE IV SCH ×3 (09:00)
[2017-12-09] MEDS ORDERED: [UNRECOGNIZED DRUG - OTHER] IV SCH ×3 (09:00)
[2017-12-09] MEDS: Levofloxacin 500MG/100ML D5W 500 MG/100 ML BAG IV SCH (10:00)
[2017-12-09] MEDS: Acidophilus TABLET PO SCH (10:00)
[2017-12-09] MEDS: Pepcid 20 MG VIAL IV SCH (10:34)
[2017-12-09] MEDS: ENOXAPARIN SODIUM SQ SCH (10:52)
[2017-12-09] MEDS: NEURONTIN 300 MG PO SCH ×2 (10:52→15:00)
[2017-12-09] MEDS: Valium 5 MG PO SCH ×3 (10:52→17:07)
[2017-12-09] MEDS: SYNTHROID 75 MCG PO SCH (10:53)
[2017-12-09] MEDS: Protonix 40MG Tablet PO SCH (10:53)
[2017-12-09] MEDS ORDERED: PHARMACY DOSING REQUEST MC ONE (11:42)
[2017-12-09] MEDS ORDERED: INTRALIPID 20% 250 ML 250 ML, TPN Electrolytes 40 ML, Multitrace-4 Conc Vial 1 ML*** 1 ... IV SCH ×7 (14:00)
--- NOTE | 2017-12-09 14:25 | XRAY ---
Indication: Obstruction. 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 NG tube tip in the stomach and cholecystectomy clips present. Approximately 600 cc of diluted Gastrografin was it injected through indwelling NG tube. Serial overhead radiographs obtained. The 0 minute image demonstrates contrast collecting in the stomach and in a mildly distended descending duodenum. After 2 hours, the patient vomited a portion of the contrast. After 4 hours 10 minutes, contrast remains predominantly in the stomach. There is faint contrast seen throughout distended small bowel loops from diffusion of the contrast and not from peristalsis. Study was terminated. Impression: After 4 hours 10 minutes the small bowel follow-through exam is abnormal consistent with distal small bowel obstruction.
[2017-12-09] MEDS ORDERED: POTASSIUM CHLORIDE 20 mEq IN WATER 100ML 100 ML IV ONE (14:40)
--- NOTE | 2017-12-09 15:07 | XRAY ---
Indication: Ultrasound guidance for PICC line placement. Initial sonographic imaging of the right upper extremity was performed for localization of patent veins. A patent basilic vein identified above the elbow. Ultrasound guidance was then used for PICC line insertion. Full PICC line insertion is reported separately.
--- NOTE | 2017-12-09 15:12 | XRAY ---
Indication: Obstruction. Long-term IV access and therapy. Informed consent obtained. Patient was placed on the fluoroscopic table in a supine position. Initial sonographic imaging of the right upper extremity was performed for localization of patent veins. The right upper extremity was then prepped and draped in sterile fashion. Tourniquet applied. 1% lidocaine plain used for local anesthesia. Using ultrasound guidance and a micropuncture needle, a basilic vein above the elbow was successfully percutaneously cannulized. A floppy tip 0.018 guidewire inserted. Tourniquet released. Needle was exchanged for a 5 Estonian dilator peel-away sheath catheter. Ultimately a 5 Estonian double-lumen PICC line was inserted over a longer 0.018 guidewire with the tip positioned in the distal SVC using fluoroscopic guidance. Guidewire removed. Both ports flushed with heparinized saline. Catheter was secured. Postoperative instructions and orders given. Patient discharged in good condition. Impression: Technically successful right upper extremity PICC line placement using ultrasound and fluoroscopic guidance. No immediate complications. Approximately 1 cc blood loss. Approximately 0.2 minute of fluoroscopy used. Catheter length is 32 cm
[2017-12-09] MEDS ORDERED: Lactated Ringers 1,000 ML IV ONE (18:54)
[2017-12-09] MEDS ORDERED: MEFOXIN 2 GM PREMIX** 2 GM/50 ML ML IV ONE (19:21)
[2017-12-09] MEDS ORDERED: Lactated Ringers 1,000 ML IV SCH (20:00)
[2017-12-09] MEDS ORDERED: MEFOXIN 2 GM PREMIX** 2 GM/50 ML ML IV SCH (20:00)
[2017-12-09] MEDS ORDERED: Lactated Ringers 0 ML IV ONE (20:02)
[2017-12-09] MEDS ORDERED: Lactated Ringers 2,000 ML IV ONE (20:13)
[2017-12-09] MEDS ORDERED: AlbuRx 25% 50ML VIAL*** 50 ML IV ONE ×2 (20:44→20:50)
[2017-12-09] MEDS: Morphine PCA 1 MG/ML 30 ML IV PRN (23:36)
[2017-12-10] MEDS ORDERED: FEVERALL 650 MG PR PRN (00:13)
[2017-12-10] MEDS ORDERED: MEDICATION INTERVENTION MC PRN (07:50)
[2017-12-10] MEDS: Morphine PCA 1 MG/ML 30 ML IV PRN ×4 (08:00→16:00)
[2017-12-10] MEDS: MEFOXIN 1 Gm/ D5W 50 Ml** 1 G/50 ML ML IV SCH ×3 (08:05→18:05)
[2017-12-10 08:21] LABS: ANION GAP 5.4 MEQ/L (5-15); BLOOD UREA NITROGEN 8 mg/dL (9-20); CHLORIDE 103 mEq/L (98-107); Calcium 8.6 mg/dL (8.5-10.1); Carbon Dioxide 31.2 mEq/L (21-32); Creatinine 1 0.76 mg/dl (0.55-1.30); EST GLOMERULAR FILTRATION RATE > 60 ML/MIN; Potassium 3.6 mEq/L (3.5-5.1); SODIUM 136 mEq/L (136-145)
[2017-12-10 08:26] LABS: Glucose 159 MG/DL (70-110)
[2017-12-10 08:33] LABS: Hematocrit 34.3 % (35-47); Hemoglobin 10.4 gm/dl (12.0-16.0); Mean Cell Volume 102.7 fl (78-100); Mean Corpuscular Hemoglobin 31.1 pg (26-32); Mean Corpuscular Hgb Concent. 30.3 g/dl (32-36); Mean Platelet Volume 10.2 fl (6-9.5); Platelet Count 577 K/mm3 (150-450); Red Blood Count 3.34 M/mm3 (4.1-5.4); Red Cell Distribution Width 13.6 % (11.5-14.0); White Blood Count 22.2 K/mm3 (4.0-10.5)
[2017-12-10] MEDS ORDERED: MEFOXIN 1 Gm/ D5W 50 Ml** 1 G/50 ML ML IV SCH (09:00)
[2017-12-10] MEDS: FLAGYL 500 MG IVPB 500 MG/100 ML BAG IV SCH ×2 (11:45→18:06)
[2017-12-10] MEDS: Protonix 40MG Tablet PO SCH (11:45)
[2017-12-10] MEDS: ENOXAPARIN SODIUM SQ SCH (11:46)
[2017-12-10] MEDS: SYNTHROID 75 MCG PO SCH (11:47)
[2017-12-10] MEDS: INTRALIPID 20% 250 ML 250 ML, TPN Electrolytes 40 ML, Multitrace-4 Conc Vial 1 ML*** 1 ... IV SCH ×8 (13:29)
[2017-12-10 14:18] LABS: BAND 6 % (0.0-2.0); Lymphocytes 3 % (24-44); Monocyte 1 % (0.0-12.0); Neutrophils 90 % (36.0-66.0); Total Cells Counted 100
[2017-12-10 14:19] LABS: Platelet Estimate INCREASED (NORMAL)
[2017-12-11] MEDS: FLAGYL 500 MG IVPB 500 MG/100 ML BAG IV SCH ×5 (00:13→23:54)
[2017-12-11] MEDS: Dextrose 5% -0.45 NaCl 1000 ML 1,000 ML IV SCH (00:16)
[2017-12-11] MEDS: Zofran 4 MG/2 ML VIAL IVIM PRN ×2 (05:49→14:40)
[2017-12-11 06:05] LABS: Granulocyte Absolute (ANC) 15.98 (1.4-6.9); Hemoglobin 9.4 gm/dl (12.0-16.0); Mean Corpuscular Hemoglobin 31.5 pg (26-32); Mean Corpuscular Hgb Concent. 30.3 g/dl (32-36); Mean Platelet Volume 10.1 fl (6-9.5); Platelet Count 496 K/mm3 (150-450); Red Blood Count 2.98 M/mm3 (4.1-5.4); Red Cell Distribution Width 13.3 % (11.5-14.0); White Blood Count 20.8 K/mm3 (4.0-10.5)
[2017-12-11 06:25] LABS: ALBUMIN 2.4 g/dL (3.4-5.0); ALKALINE PHOSPHATASE 83 U/L (46-116); ANION GAP 7.7 MEQ/L (5-15); BLOOD UREA NITROGEN 13 mg/dL (9-20); CHLORIDE 104 mEq/L (98-107); Calcium 8.5 mg/dL (8.5-10.1); Carbon Dioxide 31.6 mEq/L (21-32); Creatinine 1 0.76 mg/dl (0.55-1.30); EST GLOMERULAR FILTRATION RATE > 60 ML/MIN; Glucose 128 MG/DL (70-110); Potassium 3.7 mEq/L (3.5-5.1); SGOT/AST 34 U/L (15-37); SGPT/ALT 19 U/L (12-78); SODIUM 140 mEq/L (136-145); Total Protein 6.3 gm/dL (6.4-8.2)
[2017-12-11 07:39] LABS: Eosinophil 3 % (0.00-3.0); Lymphocytes 14 % (24-44); Monocyte 9 % (0.0-12.0); Neutrophils 74 % (36.0-66.0); Platelet Estimate NORMAL (NORMAL); Total Cells Counted 100
[2017-12-11] MEDS: ENOXAPARIN SODIUM SQ SCH (10:48)
[2017-12-11] MEDS: Protonix 40MG Tablet PO SCH (10:48)
[2017-12-11] MEDS: SYNTHROID 75 MCG PO SCH (10:48)
[2017-12-11] MEDS: Zosyn 3.375GM/100 Ml D5W 3.375 GM/100 ML IVPB IV SCH ×3 (12:18→23:04)
[2017-12-11] MEDS: Morphine PCA 1 MG/ML 30 ML IV PRN ×3 (12:39→19:56)
[2017-12-11] MEDS: INTRALIPID 20% 250 ML 250 ML, TPN Electrolytes 40 ML, Multitrace-4 Conc Vial 1 ML*** 1 ... IV SCH ×8 (14:00)
[2017-12-11] MEDS: TYLENOL 325 MG PO PRN (18:58)
--- NOTE | 2017-12-11 20:21 | XRAY ---
Indication: NG tube insertion. Comparison: December 08, 2017. Portable chest demonstrates NG tube tip looped in the stomach. New right arm PICC line with the tip projecting over the SVC. Remaining chest unchanged again with mild bibasilar atelectasis/effusions. Heart is not enlarged.
[2017-12-12] MEDS: TYLENOL 325 MG PO PRN ×2 (05:12→16:17)
[2017-12-12] MEDS: Zosyn 3.375GM/100 Ml D5W 3.375 GM/100 ML IVPB IV SCH ×4 (05:13→19:50)
[2017-12-12 05:32] LABS: Granulocyte Absolute (ANC) 9.36 (1.4-6.9); Hematocrit 28.4 % (35-47); Hemoglobin 8.6 gm/dl (12.0-16.0); Mean Cell Volume 103.6 fl (78-100); Mean Corpuscular Hgb Concent. 30.3 g/dl (32-36); Mean Platelet Volume 9.9 fl (6-9.5); Platelet Count 400 K/mm3 (150-450); Red Blood Count 2.74 M/mm3 (4.1-5.4); Red Cell Distribution Width 13.2 % (11.5-14.0); White Blood Count 13.9 K/mm3 (4.0-10.5)
[2017-12-12 06:03] LABS: ALBUMIN 2.4 g/dL (3.4-5.0); ALKALINE PHOSPHATASE 88 U/L (46-116); BLOOD UREA NITROGEN 11 mg/dL (9-20); CHLORIDE 104 mEq/L (98-107); Carbon Dioxide 33.4 mEq/L (21-32); EST GLOMERULAR FILTRATION RATE > 60 ML/MIN; Glucose 117 MG/DL (70-110); MAGNESIUM 2.1 mg/dL (1.8-2.4); Potassium 3.4 mEq/L (3.5-5.1); SGOT/AST 29 U/L (15-37); SGPT/ALT 17 U/L (12-78); SODIUM 140 mEq/L (136-145); Total Protein 6.3 gm/dL (6.4-8.2)
[2017-12-12] MEDS: FLAGYL 500 MG IVPB 500 MG/100 ML BAG IV SCH ×4 (06:08→23:10)
[2017-12-12 06:17] LABS: Mean Corpuscular Hemoglobin 31.3 pg (26-32)
[2017-12-12 06:33] LABS: ANISOCYTOSIS 1+; Eosinophil 6 % (0.00-3.0); Lymphocytes 6 % (24-44); Monocyte 10 % (0.0-12.0); Neutrophils 78 % (36.0-66.0); Platelet Estimate NORMAL (NORMAL); Poikilocytosis 1+; Polychromasia 1+; Total Cells Counted 100
--- NOTE | 2017-12-12 08:02 | PCM.NOTE ---
Date and Time: 12/12/17801 Subjective Assessment: still having the pain worse with walking she has excoriated rash in the groin area that has been treating with barrier cream and present for several months now not improving she continues to have output from NG she has irritation from the dressing on the incision. no flatulance or bm they are concerned about some increased swelling in the suprapubic area. Objective Exam General Appearance: no apparent distress, alert Neurologic Exam: alert, oriented x 3, cooperative, normal mood/affect, nml cerebellar function Skin Exam: normal color, warm, dry, other (excoriated red irritated rash on outer vulva) Eye Exam: PERRL, EOMI, eyes nml inspection Ears, Nose, Throat Exam: other (NG in place taped with output) Neck Exam: supple Respiratory Exam: normal breath sounds, lungs clear, No respiratory distress Cardiovascular Exam: regular rate/rhythm, normal heart sounds Gastrointestinal/Abdomen Exam: soft, tenderness (diffuse), distention (mild), No guarding, No ecchymosis (dressing clean and intact midline lower abdominal incision) Extremity Exam: normal inspection, normal range of motion, No pedal edema Back Exam: normal inspection, normal range of motion, No CVA tenderness, No vertebral tenderness Pelvic Exam: deferred Rectal Exam: deferred OBJECTIVE DATA Vital Signs: Vital Signs - 24 hr Temp Pulse Resp BP Pulse Ox 12/12/17 05:28 92 L 12/12/17 04:00 97.6 F 98 H 14 128/61 92 L 12/12/17 03:56 92 L 12/12/17 01:28 95 12/12/17 00:00 98.7 F 84 12 117/55 95 12/11/17 23:56 95 12/11/17 21:28 91 L 12/11/17 20:00 98.4 F 97 H 16 111/61 91 L 12/11/17 19:56 91 L 12/11/17 17:28 96 12/11/17 16:32 96 12/11/17 16:15 97.8 F 99 H 18 136/63 96 12/11/17 12:39 96 12/11/17 11:14 98.4 F 96 H 18 122/64 96 Pain Assessment - Last Documented Pain Intensity 8 Pain Scale Used 0-10 Pain Scale Intake and Output: Intake & Output 12/09/17 12/10/17 12/11/17 12/12/17 11:59 11:59 11:59 11:59 Intake Total 2414 8545 2772 3030 Output Total 1041 8700 1576 2200 Balance 1263 -1834 1204 178 Weight 48.3 kg 48.1 kg 48.8 kg Lab Results: Lab Results-Last 24 Hours 12/12/17 12/12/17 Range/Units 05:20 05:20 WBC 13.9 H (4.0-10.5) K/mm3 RBC 2.74 L (4.1-5.4) M/mm3 Hgb 8.6 L (12.0-16.0) gm/dl Hct 28.4 L (35-47) % MCV 103.6 H (78-100) fl MCH 31.3 (26-32) pg MCHC 30.3 L (32-36) g/dl RDW 13.2 (11.5-14.0) % Plt Count 400 (150-450) K/mm3 MPV 9.9 H (6-9.5) fl Segmented Neutrophils 78 H (36.0-66.0) % Lymphocytes (Manual) 6 L (24-44) % Monocytes (Manual) 10 (0.0-12.0) % Eosinophils (Manual) 6 H (0.00-3.0) % Differential Comment ABNORMAL Platelet Estimate NORMAL (NORMAL) Polychromasia 1+ Poikilocytosis 1+ Anisocytosis 1+ Sodium 140 (136-145) mEq/L Potassium 3.4 L (3.5-5.1) mEq/L Chloride 104 (98-107) mEq/L Carbon Dioxide 33.4 H (21-32) mEq/L Anion Gap 6.0 (5-15) MEQ/L BUN 11 (9-20) mg/dL Creatinine 0.80 (0.55-1.30) mg/dl Estimated GFR > 60 ML/MIN Glucose 117 H (70-110) MG/DL Calcium 8.0 L (8.5-10.1) mg/dL Magnesium 2.1 (1.8-2.4) mg/dL Total Bilirubin 0.20 (0.2-1.0) mg/dL AST 29 (15-37) U/L ALT 17 (12-78) U/L Alkaline Phosphatase 88 (46-116) U/L Serum Total Protein 6.3 L (6.4-8.2) gm/dL Albumin 2.4 L (3.4-5.0) g/dL Radiology Exams: Radiology Procedures Category Date Time Status CHEST 1 VIEW (PORTABLE) Urgent Exams 12/11/17 15:36 Completed Multi-Disciplinary Progress Notes: Multi-Disciplinary Progress Notes 12/11/17 13:49 Case Management Note by Karen Reyes CERTIFICATION ON PAPER CHART FOR EXTENDED STAY BEYOND 96 HOURS. PATIENT DOES NOT WANT TO TRANSFER. Initialized on 12/11/17 13:49 - END OF NOTE Assessment/Plan (1) Small bowel obstruction Current Visit: Yes Status: Acute Assessment & Plan: post op day 3 Dr. Garret Alan following NG continues output no bm or flutulance remains on tpn with the swelling suprapubic will check a post void residual cath to rule out urinary retention add lotrisone cream for the vulvar rash and itching. will need formal exam with her discomfort unable to get accurate pelvic exam in the bed today Code(s): K56.609 - UNSP INTESTNL OBST, UNSP TO PARTIAL VERSUS COMPLETE OBST (2) UTI (urinary tract infection) Current Visit: Yes Status: Acute Assessment & Plan: she was treated with levaquin based on cultures repeat cultures were no growth she was changed to zosyn and flagyl over the weekend post operatively and remains on these now Code(s): N39.0 - URINARY TRACT INFECTION, SITE NOT SPECIFIED (3) Acute kidney injury Current Visit: Yes Status: Resolved Code(s): N17.9 - ACUTE KIDNEY FAILURE, UNSPECIFIED (4) Vomiting Current Visit: Yes Status: Acute Code(s): R11.10 - VOMITING, UNSPECIFIED (5) Abdominal pain Current Visit: Yes Status: Acute Code(s): R10.9 - UNSPECIFIED ABDOMINAL PAIN (6) Hypothyroidism Current Visit: Yes Status: Chronic Code(s): E03.9 - HYPOTHYROIDISM, UNSPECIFIED (7) Anxiety Current Visit: Yes Status: Chronic Code(s): F41.9 - ANXIETY DISORDER, UNSPECIFIED (8) Anemia Current Visit: Yes Status: Acute Assessment & Plan: post op trend Code(s): D64.9 - ANEMIA, UNSPECIFIED
[2017-12-12] MEDS ORDERED: CHLORASEPTIC SPRAY 180 ML PO PRN (08:52)
--- NOTE | 2017-12-12 10:21 | OP ---
SURGERY DATE/TIME: 12/09/20172052 PREOPERATIVE DIAGNOSIS: Small bowel obstruction. POSTOPERATIVE DIAGNOSIS: Small bowel obstruction secondary internal hernia at adhesion site walling off part of the left lower quadrant between the broad ligament of the uterus and the sigmoid colon. PROCEDURE: Exploratory laparotomy with release of small bowel obstruction via release of adhesions, i.e. adhesiolysis and subsequent closure of this window. SURGEON: Kavon Alan M.D. ANESTHESIA: General. COMPLICATIONS: None. CONDITION: Stable. INDICATION: A patient presents with small bowel obstruction. She is one month out from abdominovaginal sacropexy, [facility]. She is doing well otherwise. She almost started to get over this but then it actually worsened. She had a terrible day on 12/09/2017. DESCRIPTION OF PROCEDURE: She is brought to surgery with the upper GI small bowel follow through showing a complete distal small bowel obstruction. She was distended. The old midline incision was entered. There was a small seroma in the lower part of the incision. It was cultured. The fascia was intact. The patient does have a thin physique and a fairly thin weak fascia. Previous incision was opened extending about 1 inch upwards. The small bowels were obstructed but there was 3 foot of small bowel that was not obstructed. Inspecting this area and carefully withdrawing this area from the pelvis down the left side there was a window in between the sigmoid colon and the pelvic side wall on the left which this bowel loop was in. It was able to be pulled up out of this and it had been rotated about 360 degrees before falling into this area and then stuck there and it was clearly decided obstruction. The bowel was totally viable. There was nothing on the bowel that needed any repair or improvement. The window was about 2.5 inches big. There were significant adhesions of the sigmoid against the pelvic side wall and then there were adhesions of the sigmoid against the vaginal cuff and then there was this window in front of this with the broad ligament area this was closed with a running suture #3-0 PDS and then the bowels were all laid on the right side. Which was a much bigger window about 4 to 5 inches in size and was not felt to be a problem in the small bowel, ligament of Treitz, ileocecal valve. The cecum was placed in the right pelvic gutter. Unobstructed small laid up coming right up from this and then the previous obstructed small bowel laid back in organized fashion, portion at the ligament of Treitz and then portion of the right lower quadrant they laid back in nicely. Anterior abdominal wall closed with 0 looped PDS 3 sutures in all. Subcutaneous tissues irrigated. Skin closed with lidia. Omentum then brought down. Nasogastric tube was in satisfactory position. Masters in satisfactory position. No drains were placed. NG was left in place. Masters was left in place. Findings discussed with a very large family in the waiting room. IMPRESSION: The patient had internal hernia from a walled off area in the left lower pelvis secondary to previous old diverticulitis with adhesions and additionally adhesions secondary to recent surgery.
[2017-12-12] MEDS: ENOXAPARIN SODIUM SQ SCH (10:23)
[2017-12-12] MEDS: Lotrisone Cream TOP SCH ×2 (10:23→22:01)
[2017-12-12] MEDS: SYNTHROID 75 MCG PO SCH (10:24)
[2017-12-12] MEDS: Protonix 40MG Tablet PO SCH (10:24)
[2017-12-12] MEDS: Dextrose 5% -0.45 NaCl 1000 ML 1,000 ML IV SCH (10:33)
[2017-12-12] MEDS: Zofran 4 MG/2 ML VIAL IVIM PRN ×2 (13:43→22:55)
[2017-12-12] MEDS: INTRALIPID 20% 250 ML 250 ML, TPN Electrolytes 40 ML, Multitrace-4 Conc Vial 1 ML*** 1 ... IV SCH ×8 (14:13)
[2017-12-12] MEDS ORDERED: BRIDION 200MG/2ML IV ONE (16:18)
[2017-12-12] MEDS ORDERED: Zofran 4 MG/2 ML VIAL IV ONE (16:18)
[2017-12-12] MEDS ORDERED: SUBLIMAZE 250 MCG/5 ML IJ ONE ×2 (16:18)
[2017-12-12] MEDS ORDERED: DIPRIVAN 200 MG/20 ML IV ONE (16:18)
[2017-12-12] MEDS ORDERED: Quelicin Fliptop 200 MG/10 ML IJ ONE (16:18)
[2017-12-12] MEDS ORDERED: Zemuron 100 MG/10 ML IJ ONE (16:18)
[2017-12-13] MEDS: Zosyn 3.375GM/100 Ml D5W 3.375 GM/100 ML IVPB IV SCH ×4 (00:47→18:18)
[2017-12-13] MEDS: FLAGYL 500 MG IVPB 500 MG/100 ML BAG IV SCH ×3 (05:55→19:56)
[2017-12-13 06:13] LABS: Hematocrit 29.1 % (35-47); Hemoglobin 8.9 gm/dl (12.0-16.0); Mean Cell Volume 102.1 fl (78-100); Mean Corpuscular Hemoglobin 31.2 pg (26-32); Mean Corpuscular Hgb Concent. 30.6 g/dl (32-36); Mean Platelet Volume 10.6 fl (6-9.5); Platelet Count 427 K/mm3 (150-450); Red Blood Count 2.85 M/mm3 (4.1-5.4); Red Cell Distribution Width 13.2 % (11.5-14.0); White Blood Count 13.4 K/mm3 (4.0-10.5)
[2017-12-13] MEDS: Zofran 4 MG/2 ML VIAL IVIM PRN ×2 (06:14→13:58)
[2017-12-13 06:32] LABS: ALBUMIN 2.4 g/dL (3.4-5.0); ALKALINE PHOSPHATASE 81 U/L (46-116); ANION GAP 4.8 MEQ/L (5-15); BLOOD UREA NITROGEN 9 mg/dL (9-20); CHLORIDE 107 mEq/L (98-107); Calcium 8.7 mg/dL (8.5-10.1); Carbon Dioxide 31.9 mEq/L (21-32); Creatinine 1 0.77 mg/dl (0.55-1.30); EST GLOMERULAR FILTRATION RATE > 60 ML/MIN; Glucose 133 MG/DL (70-110); Potassium 3.8 mEq/L (3.5-5.1); SGOT/AST 24 U/L (15-37); SGPT/ALT 14 U/L (12-78); SODIUM 140 mEq/L (136-145); Total Protein 6.5 gm/dL (6.4-8.2)
--- NOTE | 2017-12-13 07:47 | PCM.NOTE ---
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 she is chronically on valium 10 mg q6h at home Objective Exam General Appearance: no apparent distress Neurologic Exam: alert, oriented x 3, cooperative Skin Exam: warm, dry Ears, Nose, Throat Exam: moist mucous membranes, other (NG right nare) Neck Exam: non-tender, supple Respiratory Exam: normal breath sounds, lungs clear Cardiovascular Exam: regular rate/rhythm, normal heart sounds Gastrointestinal/Abdomen Exam: other (Tenderness mild distension hypoactive bowel sounds) Extremity Exam: No calf tenderness, No pedal edema OBJECTIVE DATA Vital Signs: Vital Signs - 24 hr Temp Pulse Resp BP Pulse Ox 12/13/17 07:28 97.9 F 91 H 16 117/68 96 12/13/17 07:21 96 H 16 95 12/13/17 05:00 94 L 12/13/17 04:00 98 F 95 H 16 106/56 94 L 12/13/17 00:56 87 12 93 L 12/13/17 00:00 98.7 F 92 H 10 L 126/67 93 L 12/12/17 20:00 97.6 F 92 H 12 120/70 93 L 12/12/17 19:59 94 L 12/12/17 16:00 98.2 F 96 H 20 135/65 93 L 12/12/17 13:58 91 L 12/12/17 13:54 100 H 16 91 L 12/12/17 12:00 96.3 F 101 H 16 119/56 91 L 12/12/17 08:00 96.8 F 87 16 104/55 95 Pain Assessment - Last Documented Pain Intensity 10 Pain Scale Used 0-10 Pain Scale Intake and Output: Intake & Output 12/10/17 12/11/17 12/12/17 12/13/17 11:59 11:59 11:59 11:59 Intake Total 419 2774 2378 3450 Output Total 6003 1570 2200 5700 Balance -1834 1204 178 -2250 Weight 48.1 kg 48.8 kg 49.7 kg Lab Results: Lab Results-Last 24 Hours 12/13/17 12/13/17 Range/Units 05:35 05:40 WBC 13.4 H (4.0-10.5) K/mm3 RBC 2.85 L (4.1-5.4) M/mm3 Hgb 8.9 L (12.0-16.0) gm/dl Hct 29.1 L (35-47) % MCV 102.1 H (78-100) fl MCH 31.2 (26-32) pg MCHC 30.6 L (32-36) g/dl RDW 13.2 (11.5-14.0) % Plt Count 427 (150-450) K/mm3 MPV 10.6 H (6-9.5) fl Sodium 140 (136-145) mEq/L Potassium 3.8 (3.5-5.1) mEq/L Chloride 107 (98-107) mEq/L Carbon Dioxide 31.9 (21-32) mEq/L Anion Gap 4.8 L (5-15) MEQ/L BUN 9 (9-20) mg/dL Creatinine 0.77 (0.55-1.30) mg/dl Estimated GFR > 60 ML/MIN Glucose 133 H (70-110) MG/DL Calcium 8.7 (8.5-10.1) mg/dL Total Bilirubin 0.20 (0.2-1.0) mg/dL AST 24 (15-37) U/L ALT 14 (12-78) U/L Alkaline Phosphatase 81 (46-116) U/L Serum Total Protein 6.5 (6.4-8.2) gm/dL Albumin 2.4 L (3.4-5.0) g/dL Radiology Exams: Radiology Procedures Category Date Time Status CHEST 1 VIEW (PORTABLE) Urgent Exams 12/11/17 15:36 Completed Multi-Disciplinary Progress Notes: Multi-Disciplinary Progress Notes 12/12/17 13:49 Nutrition Note by Eugenia oHlt F/u Note: Note PPN changed to central line on 12/10 @ 55cc/hour providing 1508 kcals and 55 gms protein - feeding meeting needs. Labs K+ 3.4, glu 117, alb 2.4, hgb 8.6, hct 28.4, mcv 103.6. Neg fluid blance 122 mls. Weight 48.8 kg; adm weight 50.2 kg. Note pt with some acute nausea and abd pain. Recommend to con't with feeding at current rate. Will monitor and f/u prn. 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 morphine tpn her valium she usually takes 10 mg qid po and was stopped with semiconductor dies loader now very anxious will use ativan iv prn monitor respiratory status Code(s): K56.609 - UNSP INTESTNL OBST, UNSP TO PARTIAL VERSUS COMPLETE OBST (2) UTI (urinary tract infection) Current Visit: Yes Status: Acute Code(s): N39.0 - URINARY TRACT INFECTION, SITE NOT SPECIFIED (3) Acute kidney injury Current Visit: Yes Status: Resolved Code(s): N17.9 - ACUTE KIDNEY FAILURE, UNSPECIFIED (4) Vomiting Current Visit: Yes Status: Acute Code(s): R11.10 - VOMITING, UNSPECIFIED (5) Abdominal pain Current Visit: Yes Status: Acute Code(s): R10.9 - UNSPECIFIED ABDOMINAL PAIN (6) Hypothyroidism Current Visit: Yes Status: Chronic Code(s): E03.9 - HYPOTHYROIDISM, UNSPECIFIED (7) Anxiety Current Visit: Yes Status: Chronic Code(s): F41.9 - ANXIETY DISORDER, UNSPECIFIED (8) Anemia Current Visit: Yes Status: Acute Code(s): D64.9 - ANEMIA, UNSPECIFIED
[2017-12-13] MEDS: Ativan 2 MG/1 ML VIAL IV PRN ×2 (08:44→15:18)
[2017-12-13] MEDS: Phenergan 25 MG INJ IV PRN ×3 (09:24→21:45)
[2017-12-13] MEDS: SYNTHROID 75 MCG PO SCH (11:05)
[2017-12-13] MEDS: Protonix 40MG Tablet PO SCH (11:05)
[2017-12-13] MEDS: ENOXAPARIN SODIUM SQ SCH (11:05)
[2017-12-13] MEDS: Lotrisone Cream TOP SCH ×2 (11:07→21:54)
[2017-12-13] MEDS: INTRALIPID 20% 250 ML 250 ML, TPN Electrolytes 40 ML, Multitrace-4 Conc Vial 1 ML*** 1 ... IV SCH ×8 (13:58)
[2017-12-13] MEDS: Morphine PCA 1 MG/ML 30 ML IV PRN (23:39)
[2017-12-14] MEDS: Ativan 2 MG/1 ML VIAL IV PRN (00:17)
[2017-12-14] MEDS: FLAGYL 500 MG IVPB 500 MG/100 ML BAG IV SCH ×5 (00:49→23:05)
[2017-12-14] MEDS: Dextrose 5% -0.45 NaCl 1000 ML 1,000 ML IV SCH (00:50)
[2017-12-14] MEDS: Zosyn 3.375GM/100 Ml D5W 3.375 GM/100 ML IVPB IV SCH ×5 (06:14→23:56)
[2017-12-14 06:17] LABS: Hematocrit 34.5 % (35-47); Hemoglobin 10.4 gm/dl (12.0-16.0); Mean Cell Volume 102.4 fl (78-100); Mean Corpuscular Hgb Concent. 30.1 g/dl (32-36); Mean Platelet Volume 10.4 fl (6-9.5); Platelet Count 555 K/mm3 (150-450); Red Blood Count 3.37 M/mm3 (4.1-5.4); Red Cell Distribution Width 13.9 % (11.5-14.0); White Blood Count 15.6 K/mm3 (4.0-10.5)
[2017-12-14 06:24] LABS: Mean Corpuscular Hemoglobin 30.8 pg (26-32)
[2017-12-14 07:33] LABS: ALBUMIN 2.6 g/dL (3.4-5.0); ALKALINE PHOSPHATASE 99 U/L (46-116); ANION GAP 7.1 MEQ/L (5-15); BLOOD UREA NITROGEN 12 mg/dL (9-20); CHLORIDE 106 mEq/L (98-107); Calcium 8.8 mg/dL (8.5-10.1); Carbon Dioxide 30.8 mEq/L (21-32); Creatinine 1 0.84 mg/dl (0.55-1.30); EST GLOMERULAR FILTRATION RATE > 60 ML/MIN; Glucose 110 MG/DL (70-110); MAGNESIUM 2.1 mg/dL (1.8-2.4); Potassium 3.9 mEq/L (3.5-5.1); SGOT/AST 29 U/L (15-37); SGPT/ALT 16 U/L (12-78); SODIUM 140 mEq/L (136-145); Total Protein 7.2 gm/dL (6.4-8.2)
--- NOTE | 2017-12-14 08:26 | PCM.NOTE ---
Date and Time: 12/14/17825 Subjective Assessment: she had 5 bowel movements yesterday is tolerating clears now still with pain worse with walking not using contract attorney much no nausea with the ng out Objective Exam General Appearance: no apparent distress, alert Neurologic Exam: alert, oriented x 3, cooperative, normal mood/affect, nml cerebellar function, sensation nml, No motor deficits Skin Exam: normal color, warm, dry Eye Exam: PERRL, EOMI, eyes nml inspection Ears, Nose, Throat Exam: normal ENT inspection, pharynx normal, moist mucous membranes Neck Exam: normal inspection, non-tender, supple, full range of motion Respiratory Exam: normal breath sounds, lungs clear, No respiratory distress Cardiovascular Exam: regular rate/rhythm, normal heart sounds Gastrointestinal/Abdomen Exam: soft, No tenderness, No mass Extremity Exam: normal inspection Pelvic Exam: deferred Rectal Exam: deferred OBJECTIVE DATA Vital Signs: Vital Signs - 24 hr Temp Pulse Resp BP Pulse Ox 12/14/17 07:09 98.2 F 97 H 18 115/55 97 12/14/17 04:20 98.2 F 95 H 16 126/64 97 12/14/17 03:39 97 12/14/17 01:00 96 12/14/17 00:09 98.3 F 116 H 17 119/59 97 12/13/17 21:37 112 H 18 97 12/13/17 21:00 96 12/13/17 20:00 98.4 F 105 H 14 115/60 97 12/13/17 17:00 95 12/13/17 16:00 97.8 F 97 H 18 113/78 95 12/13/17 13:00 94 L 12/13/17 12:00 98.1 F 83 78 H 109/61 94 L 12/13/17 09:00 96 Pain Assessment - Last Documented Pain Intensity 4 Pain Scale Used 0-10 Pain Scale Intake and Output: Intake & Output 12/11/17 12/12/17 12/13/17 12/14/17 11:59 11:59 11:59 11:59 Intake Total 2774 2378 3450 3956 Output Total 1570 2200 5700 3750 Balance 1204 178 -2250 206 Weight 48.8 kg 49.7 kg 52.6 kg Lab Results: Lab Results-Last 24 Hours 12/14/17 12/14/17 Range/Units 05:40 05:40 WBC 15.6 H (4.0-10.5) K/mm3 RBC 3.37 L (4.1-5.4) M/mm3 Hgb 10.4 L (12.0-16.0) gm/dl Hct 34.5 L (35-47) % MCV 102.4 H (78-100) fl MCH 30.8 (26-32) pg MCHC 30.1 L (32-36) g/dl RDW 13.9 (11.5-14.0) % Plt Count 555 H (150-450) K/mm3 MPV 10.4 H (6-9.5) fl Sodium 140 (136-145) mEq/L Potassium 3.9 (3.5-5.1) mEq/L Chloride 106 (98-107) mEq/L Carbon Dioxide 30.8 (21-32) mEq/L Anion Gap 7.1 (5-15) MEQ/L BUN 12 (9-20) mg/dL Creatinine 0.84 (0.55-1.30) mg/dl Estimated GFR > 60 ML/MIN Glucose 110 (70-110) MG/DL Calcium 8.8 (8.5-10.1) mg/dL Magnesium 2.1 (1.8-2.4) mg/dL Total Bilirubin 0.20 (0.2-1.0) mg/dL AST 29 (15-37) U/L ALT 16 (12-78) U/L Alkaline Phosphatase 99 (46-116) U/L Serum Total Protein 7.2 (6.4-8.2) gm/dL Albumin 2.6 L (3.4-5.0) g/dL Assessment/Plan (1) Small bowel obstruction Current Visit: Yes Status: Acute Assessment & Plan: pod 5 now with bowels moving tolerating clears surgery with order to advance to soft as tolerated will d/c the tpn today add back her valium as she appears to be having some difficulties without it very anxious not sleeping and having headaches. discussed risk of this and the morphine but she stats she is not needing the pain medicine much Code(s): K56.609 - UNSP INTESTNL OBST, UNSP TO PARTIAL VERSUS COMPLETE OBST (2) UTI (urinary tract infection) Current Visit: Yes Status: Acute Code(s): N39.0 - URINARY TRACT INFECTION, SITE NOT SPECIFIED (3) Acute kidney injury Current Visit: Yes Status: Resolved Code(s): N17.9 - ACUTE KIDNEY FAILURE, UNSPECIFIED (4) Vomiting Current Visit: Yes Status: Resolved Code(s): R11.10 - VOMITING, UNSPECIFIED (5) Abdominal pain Current Visit: Yes Status: Acute Code(s): R10.9 - UNSPECIFIED ABDOMINAL PAIN (6) Hypothyroidism Current Visit: Yes Status: Chronic Code(s): E03.9 - HYPOTHYROIDISM, UNSPECIFIED (7) Anxiety Current Visit: Yes Status: Chronic Code(s): F41.9 - ANXIETY DISORDER, UNSPECIFIED (8) Anemia Current Visit: Yes Status: Acute Code(s): D64.9 - ANEMIA, UNSPECIFIED
[2017-12-14] MEDS: Lotrisone Cream TOP SCH ×2 (09:19→22:56)
[2017-12-14] MEDS: Protonix 40MG Tablet PO SCH (09:19)
[2017-12-14] MEDS: ENOXAPARIN SODIUM SQ SCH (09:19)
[2017-12-14] MEDS: Valium 5 MG PO PRN ×3 (09:19→23:04)
[2017-12-14] MEDS: SYNTHROID 75 MCG PO SCH (09:19)
[2017-12-14] MEDS: NORCO 5/325 MG PO PRN ×2 (12:25→20:06)
[2017-12-14] MEDS: Phenergan 25 MG INJ IV PRN ×2 (12:25→20:07)
[2017-12-14] MEDS ORDERED: Tums EX 750 MG PO PRN (19:02)
[2017-12-15] MEDS: NORCO 5/325 MG PO PRN (00:16)
[2017-12-15] MEDS: Phenergan 25 MG INJ IV PRN (01:30)
[2017-12-15] MEDS: Zofran 4 MG/2 ML VIAL IVIM PRN ×2 (05:39→15:28)
[2017-12-15] MEDS: FLAGYL 500 MG IVPB 500 MG/100 ML BAG IV SCH ×3 (06:12→20:08)
[2017-12-15 06:19] LABS: Hematocrit 31.3 % (35-47); Hemoglobin 9.7 gm/dl (12.0-16.0); Mean Cell Volume 100.3 fl (78-100); Mean Platelet Volume 10.4 fl (6-9.5); Platelet Count 569 K/mm3 (150-450); Red Blood Count 3.12 M/mm3 (4.1-5.4); Red Cell Distribution Width 13.9 % (11.5-14.0); White Blood Count 13.6 K/mm3 (4.0-10.5)
[2017-12-15 06:22] LABS: ANION GAP 11.1 MEQ/L (5-15); BLOOD UREA NITROGEN 11 mg/dL (9-20); CHLORIDE 107 mEq/L (98-107); Calcium 8.1 mg/dL (8.5-10.1); Carbon Dioxide 26.7 mEq/L (21-32); Creatinine 1 0.84 mg/dl (0.55-1.30); EST GLOMERULAR FILTRATION RATE > 60 ML/MIN; Glucose 110 MG/DL (70-110); Potassium 3.4 mEq/L (3.5-5.1); SODIUM 141 mEq/L (136-145)
[2017-12-15] MEDS: Zosyn 3.375GM/100 Ml D5W 3.375 GM/100 ML IVPB IV SCH ×3 (07:13→21:38)
[2017-12-15] MEDS: SYNTHROID 75 MCG PO SCH (10:33)
[2017-12-15] MEDS: Protonix 40MG Tablet PO SCH (10:33)
[2017-12-15] MEDS: Lotrisone Cream TOP SCH ×2 (10:33→21:11)
[2017-12-15] MEDS: ENOXAPARIN SODIUM SQ SCH (10:33)
[2017-12-15] MEDS: Valium 5 MG PO PRN ×2 (10:42→20:08)
[2017-12-15 13:15] LABS: 027 TOX PROD PRESUMPTIVE NEGATIVE (NEGATIVE); TOXIGENIC C. DIFF ORG NEGATIVE (NEGATIVE)
[2017-12-15] MEDS: NORCO 7.5/325 MG TAB PO PRN (15:28)
--- NOTE | 2017-12-15 17:23 | PCM.NOTE ---
Date and Time: 12/15/17 1720 Subjective Assessment: was feeling well until about 0400 began having abdominal pain and diarrhea and chills. She was checked for c. diff this am and negative she is still having some pain and the stools are improving. she did eat some today but not as good as last night. Objective Exam General Appearance: thin Neurologic Exam: alert, oriented x 3, cooperative Skin Exam: warm, dry Ears, Nose, Throat Exam: moist mucous membranes Neck Exam: non-tender, supple Respiratory Exam: normal breath sounds Cardiovascular Exam: normal heart sounds, murmur Gastrointestinal/Abdomen Exam: soft, normal bowel sounds, tenderness (mild has midline incision with lidia and wick drain superior and inferior no evidence of infection) Extremity Exam: No calf tenderness, No pedal edema OBJECTIVE DATA Vital Signs: Vital Signs - 24 hr Temp Pulse Resp BP Pulse Ox 12/15/17 16:00 98.4 F 95 H 18 107/56 93 L 12/15/17 12:00 97.6 F 96 H 18 125/60 94 L 12/15/17 07:40 97.8 F 70 18 128/64 96 12/15/17 04:00 98.2 F 98 H 20 136/68 95 12/15/17 00:00 98.5 F 92 H 18 124/51 97 12/14/17 22:39 95 12/14/17 20:00 98.7 F 95 H 16 116/55 96 Pain Assessment - Last Documented Pain Intensity 5 Pain Scale Used 0-10 Pain Scale Intake and Output: Intake & Output 12/13/17 12/14/17 12/15/17 12/16/17 11:59 11:59 11:59 11:59 Intake Total 3450 4316 2394 60 Output Total 5700 3750 600 300 Balance -2250 566 1794 -240 Weight 49.7 kg 52.6 kg 53 kg Lab Results: Lab Results-Last 24 Hours 12/15/17 12/15/17 12/15/17 Range/Units 05:28 05:28 10:19 WBC 13.6 H (4.0-10.5) K/mm3 RBC 3.12 L (4.1-5.4) M/mm3 Hgb 9.7 L (12.0-16.0) gm/dl Hct 31.3 L (35-47) % MCV 100.3 H (78-100) fl MCH 31.0 (26-32) pg MCHC 31.0 L (32-36) g/dl RDW 13.9 (11.5-14.0) % Plt Count 569 H (150-450) K/mm3 MPV 10.4 H (6-9.5) fl Sodium 141 (136-145) mEq/L Potassium 3.4 L (3.5-5.1) mEq/L Chloride 107 (98-107) mEq/L Carbon Dioxide 26.7 (21-32) mEq/L Anion Gap 11.1 (5-15) MEQ/L BUN 11 (9-20) mg/dL Creatinine 0.84 (0.55-1.30) mg/dl Estimated GFR > 60 ML/MIN Glucose 110 (70-110) MG/DL Calcium 8.1 L (8.5-10.1) mg/dL Stl C. diff Tox B Gene NEGATIVE (NEGATIVE) C.difficile [id number] PRESUMPTIVE NEGATIVE (NEGATIVE) Multi-Disciplinary Progress Notes: Multi-Disciplinary Progress Notes 12/15/17 15:14 Nutrition Note by Eugenia Holt F/u Note: TPN d/c'd. Pt started on soft diet with 50-75% po intake. Labs 12/15 = alb 2.6, hgb 9.7, hct 31.3, mcv 100.3, K+ 3.4. neg fluid balance 240 mls, weight 53 kg. Recommend to con't with soft diet. goal #1) po intake >=75% Will monitor and f/u prn. YELENA Pierce Initialized on 12/15/17 15:14 - END OF NOTE Assessment/Plan (1) Small bowel obstruction Current Visit: Yes Status: Acute Assessment & Plan: pod 6 now with diarrhea and pain improve po intake continue antibiotics with the walled off area removed with surgery and hopeful for if tolerating po well possibly home tomorrow. Code(s): K56.609 - UNSP INTESTNL OBST, UNSP TO PARTIAL VERSUS COMPLETE OBST (2) UTI (urinary tract infection) Current Visit: Yes Status: Acute Code(s): N39.0 - URINARY TRACT INFECTION, SITE NOT SPECIFIED (3) Acute kidney injury Current Visit: Yes Status: Resolved Code(s): N17.9 - ACUTE KIDNEY FAILURE, UNSPECIFIED (4) Vomiting Current Visit: Yes Status: Resolved Code(s): R11.10 - VOMITING, UNSPECIFIED (5) Abdominal pain Current Visit: Yes Status: Acute Code(s): R10.9 - UNSPECIFIED ABDOMINAL PAIN (6) Hypothyroidism Current Visit: Yes Status: Chronic Code(s): E03.9 - HYPOTHYROIDISM, UNSPECIFIED (7) Anxiety Current Visit: Yes Status: Chronic Code(s): F41.9 - ANXIETY DISORDER, UNSPECIFIED (8) Anemia Current Visit: Yes Status: Acute Code(s): D64.9 - ANEMIA, UNSPECIFIED
[2017-12-15] MEDS: Dextrose 5% -0.45 NaCl 1000 ML 1,000 ML IV SCH (21:00)
[2017-12-16] MEDS: FLAGYL 500 MG IVPB 500 MG/100 ML BAG IV SCH ×2 (00:55→05:11)
[2017-12-16] MEDS: Zosyn 3.375GM/100 Ml D5W 3.375 GM/100 ML IVPB IV SCH ×2 (01:32→05:52)
[2017-12-16] MEDS: NORCO 7.5/325 MG TAB PO PRN ×2 (01:38→06:15)
[2017-12-16] MEDS: Valium 5 MG PO SCH (04:38)
[2017-12-16 05:29] VITALS: O2SAT 96
--- NOTE | 2017-12-16 07:46 | PCM.DS ---
Discharge Summary Date of Admission: 12/06/17 10:08 Admitting Physician: VITO STEWART Consults: Consults on Case 12/09/17 15:30 Nutritional Consult Primary Care Provider: VITO STEWART Allergies Allergies aspirin Allergy (Verified 12/05/17 17:45) Nausea tape Allergy (Uncoded 12/05/17 17:45) Hospital Summary - Hospital Course Hospital Course: She presented with vomiting and dehydration with acute kidney injury and a UTI initially treated with levaquin based on cultures. She did have a time after surgery where wbc increased and levaquin was changed back to zosyn and flagyl by Dr. Bergman over the weekend and continued on this for the remainder of the hospital courze. She was found to have small bowel obstruction on imaging. Attempt at decompression with NG and npo was done and this was not successful at returning bowel function. Thus on 12/09 Dr. Garret Alan took her for surgery and preformed lysis of adhesions. She was started on TPN via PICC Line. The bowel function returned on 01/11 but then began having diarrhea and pain on 01/12 and wasn 't tolerating po well. She was kept an additional day on antibiotics and improved by 01/13 when she was discharged to home. THe TPN was stopped on 01/12. - Vitals & Intake/Output Vital Signs: Vital Signs Temperature 98.1 F 12/16/17 04:00 Pulse Rate 84 12/16/17 04:00 Respiratory Rate 18 12/16/17 04:00 Blood Pressure 113/55 12/16/17 04:00 O2 Sat by Pulse Oximetry 96 12/16/17 04:00 Oxygen-Last Documented O2 Percentage 1 Liter = 24% Intake & Output: Intake & Output 12/13/17 12/14/17 12/15/17 12/16/17 11:59 11:59 11:59 11:59 Intake Total 3450 4316 2394 1377 Output Total 5700 3750 600 1250 Balance -2250 566 1794 127 Weight 49.7 kg 52.6 kg 53 kg - Lab Result Diagrams: 12/15/17 05:28 12/15/17 05:28 Lab Results-Last 24 Hrs: Lab Results-Last 24 Hours 12/15/17 Range/Units 10:19 Stl C. diff Tox B Gene NEGATIVE (NEGATIVE) C.difficile [id number] PRESUMPTIVE NEGATIVE (NEGATIVE) Micro Results-Entire Visit: Microbiology 12/09/17 21:16 Miscellaneous Culture - Final Other - Not Known NO GROWTH 12/09/17 21:16 Urine Culture - Final Catherized NO GROWTH - Procedures and Test Procedures and Tests throughout Hospitalization: Therapy Orders & Screens 12/08/17 04:03 Oxygen NASAL CANNULA 2 lpm Comment: Diagnosis: SMALL BOWEL OBSTRUCTION 12/12/17 11:22 Incentive Spirometry Assessmen UD Comment: Diagnosis: SMALL BOWEL OBSTRUCTION Discharge Exam General Appearance: thin Neurologic Exam: alert, oriented x 3, cooperative Skin Exam: warm, dry Eye Exam: pale conjunctivae, No scleral icterus Ears, Nose, Throat Exam: moist mucous membranes Neck Exam: non-tender, supple Respiratory Exam: normal breath sounds, lungs clear, No respiratory distress Cardiovascular Exam: regular rate/rhythm, normal heart sounds, normal peripheral pulses, No murmur Gastrointestinal/Abdomen Exam: soft, normal bowel sounds, tenderness (mild left lower quadrant. incision clean and dry with lidia and drain upper and lower margins) Extremity Exam: normal inspection, No calf tenderness, No pedal edema Final Diagnosis/Problem List - Final Discharge Diagnosis/Problem (1) Small bowel obstruction Status: Acute (2) UTI (urinary tract infection) Status: Acute (3) Acute kidney injury Status: Resolved (4) Vomiting Status: Resolved (5) Abdominal pain Status: Resolved (6) Hypothyroidism Status: Chronic (7) Anxiety Status: Chronic (8) Anemia Status: Acute - Discharge Discharge Date: 12/16/17 Disposition: Home, Self-Care Condition: Stable Prescriptions: New Amox Tr/Potass Clav. 875 mg [Augmentin 875-125 Tablet] 1 tab PO BID #8 tablet Metronidazole 500 mg [Flagyl 500 MG] 500 mg PO TID #15 tablet Clotrimazole/Betamet Diprop [Lotrisone Cream] 1 gm TOP BID #1 tube Continue Mirtazapine [Remeron] 15 mg PO QHS Gabapentin [Neurontin] 300 mg PO TID Esomeprazole Magnesium [Nexium] 40 mg PO DAILY Diazepam [Valium] 10 mg PO QID Calcium Carbonate/Vitamin D3 [Calcium 500+D Tablet Chew] 1 each PO DAILY Teriparatide [Forteo] 2.4 ml SQ DAILY Levothyroxine Sodium 75 Mcg [Synthroid 75 Mcg] 75 mcg PO DAILY Bacillus Coagulans [Probiotic] 1 each PO DAILY Cholecalciferol (Vitamin D3) [Vitamin D] 10,000 unit PO UD Hydrocodone/Acetaminophen [[place] 5-325 Tablet] 1 each PO Q4HPRN PRN #30 tablet MDD 6 PRN Reason: Pain Discontinued Diphenoxylate HCl/Atropine [Lomotil 2.5-0.025 mg Tablet] 1 each PO QID Colesevelam HCl [Welchol] 625 mg PO DAILY PRN PRN PRN Reason: Diarrhea Megestrol Acetate 40 mg [Megace 40 MG] 40 mg PO DAILY Instructions: Small Bowel Obstruction (DC), Exploratory Laparotomy (DC) Follow up with: VITO STEWART [Primary Care Provider] - 12/23/17 9:45 am ANNE-MARIE ALAN [ACTIVE STAFF] - 12/22/17 1:30 pm
[2017-12-16 08:16] VITALS: BP 121/57; PULSE 92
[2017-12-16] MEDS: SYNTHROID 75 MCG PO SCH (10:22)
[2017-12-16] MEDS: ENOXAPARIN SODIUM SQ SCH (10:22)
[2017-12-16] MEDS: Protonix 40MG Tablet PO SCH (10:22)
[2017-12-16] MEDS: Valium 5 MG PO PRN (10:22)
[2017-12-16] MEDS: Lotrisone Cream TOP SCH (10:23)
== END 2017-12-16 11:25 | disposition home or self-care (01) | DRG 336 ==
LOC: ED 13:25 → MED SURG 17:29 → OBSVTOIN 12-06 10:08
PROVIDERS: ADMIT Family Medicine; ATTEND Family Medicine
PROC: 0DNN0ZZ Release Sigmoid Colon, Open Approach (ICD-10-PCS; principal; 2017-12-09)
PROC: 0DN80ZZ Release Small Intestine, Open Approach (ICD-10-PCS; 2017-12-09)
PROC: 0DNN0ZZ Release Sigmoid Colon, Open Approach (ICD-10-PCS; 2017-12-09)
DX: K56.50 Intestinal adhesions [bands], unspecified as to partial versus complete obstruction (principal); N39.0 Urinary tract infection, site not specified; N17.9 Acute kidney failure, unspecified; R10.9 Unspecified abdominal pain; R11.10 Vomiting, unspecified; E03.9 Hypothyroidism, unspecified; F41.9 Anxiety disorder, unspecified; D64.9 Anemia, unspecified; K21.9 Gastro-esophageal reflux disease without esophagitis; M19.90 Unspecified osteoarthritis, unspecified site; M81.0 Age-related osteoporosis without current pathological fracture; Z79.899 Other long term (current) drug therapy; K91.30 Postprocedural intestinal obstruction, unspecified as to partial versus complete; Z87.891 Personal history of nicotine dependence
CPT/HCPCS: 00790; 36000; 36415; 36569; 64488; 71045; 74021; 74022; 74176; 74250; 76937; 76942; 77001; 80048; 80053; 81000; 83605; 83690; 83735; 84132; 84134; 85025; 85027; 87070; 87077; 87086; 87186; 87205; 87493; 87507; 90471; 90715; 94760; 94762; 96360; 96365; 96374; 99285; C1769; G0378; J0295; J0330; J0694; J1642; J1650; J1815; J1956; J2060; J2270; J2405; J2543; J2550; J2704; J3010; J3475; J3480; L0625; P9047; A9270-GY

== ENCOUNTER 2018-11-29 11:07 | Day surgery (SDC) | payer MEDICARE ==
[2018-11-29] MEDS ORDERED: DIPRIVAN 200 MG/20 ML IV ONE (11:08)
[2018-11-29] MEDS ORDERED: Sodium Chloride 0.9(Preservative Free) 10 ML IJ ONE (11:08)
[2018-11-29] MEDS ORDERED: Xylocaine 1% Vial 30 ML PF IJ ONE (11:08)
[2018-11-29] MEDS ORDERED: Depo-Medrol 40 MG/ML IM ONE (11:08)
[2018-11-29] MEDS ORDERED: Lactated Ringers 1,000 ML IV ONE (14:33)
--- NOTE | 2018-11-29 14:56 | XRAY ---
Indication: L4/L5 ARACELI. Intraoperative fluoroscopy was provided for 23 seconds. 2 digital spot images submitted for interpretation demonstrates posterior spinal needle tip projecting midline posterior to the L4-L5 interspace. Small amount contrast injected for needle tip placement. Correlate with intraoperative findings/report.
--- NOTE | 2018-11-29 15:00 | XRAY ---
23 seconds of fluoroscopy was used in surgery for L4/L5 ARACELI.
== END 2018-11-29 14:09 | disposition home or self-care (01) ==
LOC: SDC-PAIN 11:07
PROVIDERS: ATTEND Psychiatry & Neurology Pain Medicine
DX: M54.16 Radiculopathy, lumbar region (principal); M54.5 Low back pain
CPT/HCPCS: 62323; 72020; 77003; J1030; J2001; J2704; Q9966

== ENCOUNTER 2018-12-27 10:38 | Day surgery (SDC) | payer MEDICARE ==
[2018-12-27] MEDS ORDERED: Ketamine HCl 50 MG/ML IV ONE (10:39)
[2018-12-27] MEDS ORDERED: Depo-Medrol 40 MG/ML IM ONE (10:39)
[2018-12-27] MEDS ORDERED: Marcaine 0.5% SDV 10 ML IJ ONE (10:39)
[2018-12-27] MEDS ORDERED: DIPRIVAN 200 MG/20 ML IV ONE (10:39)
[2018-12-27] MEDS ORDERED: Lactated Ringers 1,000 ML IV ONE (14:30)
--- NOTE | 2018-12-27 15:01 | XRAY ---
Indication: Left hip injection. Intraoperative fluoroscopy was provided for 8 seconds. Single digital spot image submitted for interpretation demonstrates needle tip projecting just lateral to the femur neck. Small amount of contrast injected for needle tip placement. Correlate with intraoperative findings/report.
--- NOTE | 2018-12-27 15:01 | XRAY ---
Indication: Right hip injection. Intraoperative fluoroscopy was provided for 9 seconds. Single digital spot image submitted for interpretation demonstrates needle tip projecting just lateral to the femur neck. Small amount of contrast injected for needle tip placement. Correlate with intraoperative findings/report.
--- NOTE | 2018-12-27 15:05 | XRAY ---
9 seconds of fluoroscopy was used in surgery for right hip injection.
--- NOTE | 2018-12-27 15:05 | XRAY ---
8 seconds of fluoroscopy was used in surgery for left hip injection.
== END 2018-12-27 13:23 | disposition home or self-care (01) ==
LOC: SDC-PAIN 10:38
PROVIDERS: ATTEND Psychiatry & Neurology Pain Medicine
DX: M16.0 Bilateral primary osteoarthritis of hip (principal); Z79.899 Other long term (current) drug therapy
CPT/HCPCS: 20611; 73501; 77002; J1030; J2704; Q9966

== ENCOUNTER 2019-02-21 13:35 | Day surgery (SDC) | payer MEDICARE ==
[2019-02-21] MEDS ORDERED: DIPRIVAN 200 MG/20 ML IV ONE (13:36)
[2019-02-21] MEDS ORDERED: Depo-Medrol 40 MG/ML IM ONE (13:36)
[2019-02-21] MEDS ORDERED: LIDOCAINE HCL 2% 100 MG/5 ML IJ ONE (13:36)
[2019-02-21] MEDS ORDERED: Xylocaine-Mpf 2% 5 Ml Vial IJ ONE (13:36)
--- NOTE | 2019-02-21 16:18 | XRAY ---
Indication: Bilateral L3-S1 MBB. Intraoperative fluoroscopy was provided for 8 seconds. Single digital spot image submitted for interpretation demonstrates posterior needle tips in the expected region of the left and right L3-S1 nerve roots. Correlate with intraoperative findings/report.
--- NOTE | 2019-02-21 16:20 | XRAY ---
8 seconds fluoroscopy time in surgery for bilateral L3-S1 MBB.
[2019-02-21] MEDS ORDERED: Lactated Ringers 1,000 ML IV ONE (17:13)
== END 2019-02-21 15:30 | disposition home or self-care (01) ==
LOC: SDC-PAIN 13:35
PROVIDERS: ATTEND Psychiatry & Neurology Pain Medicine
DX: M47.816 Spondylosis without myelopathy or radiculopathy, lumbar region (principal); Z79.899 Other long term (current) drug therapy; K21.9 Gastro-esophageal reflux disease without esophagitis; E03.9 Hypothyroidism, unspecified; F41.9 Anxiety disorder, unspecified
CPT/HCPCS: 64493; 64494; 64495; 72020; 77002; J1030; J2704

== ENCOUNTER 2019-03-21 10:59 | Day surgery (SDC) | payer MEDICARE ==
[2019-03-21] MEDS ORDERED: Marcaine 0.5% SDV 10 ML IJ ONE (11:00)
[2019-03-21] MEDS ORDERED: DIPRIVAN 200 MG/20 ML IV ONE ×2 (11:00)
[2019-03-21] MEDS ORDERED: Ketamine HCl 50 MG/ML IJ ONE (11:00)
[2019-03-21] MEDS ORDERED: Lactated Ringers 1,000 ML IV ONE (12:45)
--- NOTE | 2019-03-21 13:31 | XRAY ---
Indication: Ganglion nerve block. Intraoperative fluoroscopy was provided for 11 seconds. Single lateral digital spot image submitted for interpretation demonstrates posterior needle tip projecting anterior to the sacrococcygeal junction. Small amount of contrast injected for needle tip placement. Correlate with intraoperative findings/report.
--- NOTE | 2019-03-21 13:31 | XRAY ---
11 seconds fluoroscopy time in surgery for ganglion impar block.
== END 2019-03-21 13:03 | disposition home or self-care (01) ==
LOC: SDC-PAIN 10:59
PROVIDERS: ATTEND Psychiatry & Neurology Pain Medicine
DX: M53.3 Sacrococcygeal disorders, not elsewhere classified (principal); K21.9 Gastro-esophageal reflux disease without esophagitis; E03.9 Hypothyroidism, unspecified; F41.9 Anxiety disorder, unspecified
CPT/HCPCS: 64999; 72020; 77002; J2704; Q9966

== ENCOUNTER 2019-05-30 12:24 | Day surgery (SDC) | payer MEDICARE ==
[2019-05-30] MEDS ORDERED: Depo-Medrol 40 MG/ML IM ONE (12:25)
[2019-05-30] MEDS ORDERED: Marcaine 0.5% SDV 10 ML IJ ONE (12:25)
[2019-05-30] MEDS ORDERED: Ketamine HCl 50 MG/ML ONE (13:38)
[2019-05-30] MEDS ORDERED: DIPRIVAN 200 MG/20 ML IV ONE (13:38)
[2019-05-30] MEDS ORDERED: Lactated Ringers 1,000 ML IV ONE (15:55)
--- NOTE | 2019-05-30 16:32 | XRAY ---
Indication: Bilateral L4-S1 MBB. Intraoperative fluoroscopy was provided for 10 seconds. Single digital spot image submitted for interpretation demonstrates posterior spinal needle tips projecting over the expected course of the left and right L4-S1 nerve roots. Correlate with intraoperative findings/report.
--- NOTE | 2019-05-30 16:43 | XRAY ---
10 seconds fluoroscopy time in surgery for bilateral L4-S1 MBB.
== END 2019-05-30 14:15 | disposition home or self-care (01) ==
LOC: SDC-PAIN 12:24
PROVIDERS: ATTEND Psychiatry & Neurology Pain Medicine
DX: M47.816 Spondylosis without myelopathy or radiculopathy, lumbar region (principal); K21.9 Gastro-esophageal reflux disease without esophagitis; E03.9 Hypothyroidism, unspecified; F41.8 Other specified anxiety disorders; Z79.899 Other long term (current) drug therapy
CPT/HCPCS: 72020; 77002; J1030; J2704

== ENCOUNTER 2019-06-27 09:39 | Day surgery (SDC) | payer MEDICARE ==
[2019-06-27] MEDS ORDERED: Marcaine 0.5% SDV 10 ML IJ ONE (09:40)
[2019-06-27] MEDS ORDERED: Xylocaine 1% Vial 30 ML PF IJ ONE (09:40)
[2019-06-27] MEDS ORDERED: Depo-Medrol 40 MG/ML IM ONE (09:40)
[2019-06-27] MEDS ORDERED: Ketamine HCl 50 MG/ML ONE (10:43)
[2019-06-27] MEDS ORDERED: DIPRIVAN 200 MG/20 ML IV ONE (11:03)
--- NOTE | 2019-06-27 11:56 | XRAY ---
Indication: Right L4-S1 RFA. Intraoperative fluoroscopy was provided for 32 seconds. 4 digital spot images submitted for interpretation demonstrates posterior needle tips projecting over the expected course of the right L4-S1 nerve roots. Correlate with intraoperative findings/report.
--- NOTE | 2019-06-27 12:18 | XRAY ---
32 seconds fluoroscopy time in surgery for right L4-S1 RFA.
[2019-06-27] MEDS ORDERED: Lactated Ringers 1,000 ML IV ONE (14:18)
== END 2019-06-27 11:35 | disposition home or self-care (01) ==
LOC: SDC-PAIN 09:39
PROVIDERS: ATTEND Psychiatry & Neurology Pain Medicine
DX: M47.816 Spondylosis without myelopathy or radiculopathy, lumbar region (principal); K21.9 Gastro-esophageal reflux disease without esophagitis; E03.9 Hypothyroidism, unspecified; F41.9 Anxiety disorder, unspecified; Z79.899 Other long term (current) drug therapy
CPT/HCPCS: 64635; 64636; 72100; 77002; J1030; J2001; J2704

== ENCOUNTER 2019-07-25 11:34 | Day surgery (SDC) | payer MEDICARE ==
[2019-07-25] MEDS ORDERED: Xylocaine 1% Vial 30 ML PF IJ ONE (11:35)
[2019-07-25] MEDS ORDERED: Depo-Medrol 40 MG/ML IM ONE (11:35)
[2019-07-25] MEDS ORDERED: Marcaine 0.5% SDV 10 ML IJ ONE (11:35)
[2019-07-25] MEDS ORDERED: DIPRIVAN 200 MG/20 ML IV ONE (12:55)
[2019-07-25] MEDS ORDERED: Ketamine HCl 50 MG/ML ONE (12:55)
--- NOTE | 2019-07-25 13:59 | XRAY ---
Indication: Left L4-S1 RFA. Intraoperative fluoroscopy was provided for 14 seconds. 2 digital spot images submitted for interpretation demonstrates posterior needle tips projecting over the expected course of the left L4-S1 nerve roots. Correlate with intraoperative findings/report.
[2019-07-25] MEDS ORDERED: Lactated Ringers 1,000 ML IV ONE (14:01)
--- NOTE | 2019-07-25 16:36 | XRAY ---
14 seconds of fluoroscopy was used in surgery for a left L4-L5, L5-S1 RFA.
== END 2019-07-25 13:33 | disposition home or self-care (01) ==
LOC: SDC-PAIN 11:34
PROVIDERS: ATTEND Psychiatry & Neurology Pain Medicine
DX: M47.816 Spondylosis without myelopathy or radiculopathy, lumbar region (principal); K21.9 Gastro-esophageal reflux disease without esophagitis; F41.8 Other specified anxiety disorders; E03.9 Hypothyroidism, unspecified; F41.9 Anxiety disorder, unspecified; Z79.899 Other long term (current) drug therapy
CPT/HCPCS: 64635; 64636; 72100; 77002; J1030; J2001; J2704

== ENCOUNTER 2019-12-16 18:29 | Emergency (ER) | payer MEDICARE ==
[2019-12-16] MEDS ORDERED: Sodium Chloride 0.9% 1000 ML 1,000 ML ONE ×3 (18:50→21:22)
[2019-12-16] MEDS ORDERED: Sodium Chloride 0.9% 1000 ML 1,000 ML IV STA (19:00)
--- NOTE | 2019-12-16 19:08 | ERPHSYRPT ---
- History of Present Illness Time Seen by Provider: 12/16/19 19:07 Source: patient, family Exam Limitations: no limitations Physician History: 64 yo with chronic back pain presented with gen weakness all over and frequent falls for the last 3 days. weakness is aggravated with ambulation , gets unsteady on her feet leading to fall. did hit her head on the left 2 days ago with fall. she reports more weakness in b/l LE. denies any abdominal pain nausea vomiting or dirrhea /dark stool although does have h/o GERD. No chest / palpitations or SOB . no fever chills or UTI sx. denies any focal weakness. denies any drug over dose . Timing/Duration: day(s) (3) Severity: moderate Modifying Factors: Improves With: movement Associated Symptoms: malaise, weakness (generalized), No nausea, No vomiting, No abdominal pain, No shortness of breath, No heartburn, No diaphoresis, No cough, No chills, No chest pain, No fever, No headaches, No syncope, No seizure Allergies/Adverse Reactions: tape Allergy (Uncoded 12/05/17 17:45) Home Medications: Bacillus Coagulans [Probiotic] 1 each PO DAILY 07/14/17 [History] Calcium Carbonate/Vitamin D3 [Calcium 500+D Tablet Chew] 1 each PO DAILY [History] Diazepam [Valium] 10 mg PO QID 07/14/17 [History] Esomeprazole Magnesium [Nexium] 40 mg PO DAILY 07/14/17 [History] Levothyroxine Sodium 75 Mcg [Synthroid 75 Mcg] 75 mcg PO DAILY 07/14/17 [ History] Mirtazapine [Remeron] 15 mg PO QHS 07/14/17 [History] Cholecalciferol (Vitamin D3) [Vitamin D] 10,000 unit PO UD 10/06/17 [History] Gabapentin [Neurontin] 300 - 600 mg PO HS 01/03/18 [History] Naproxen 500 mg [Naprosyn 500 MG] 500 mg PO BID 01/03/18 [History] Tizanidine HCl 4 mg [Zanaflex 4 MG] 4 mg PO HS 01/03/18 [History] Hx Tetanus, Diphtheria Vaccination/Date Given: Yes (2015) Hx Influenza Vaccination/Date Given: No Hx Pneumococcal Vaccination/Date Given: No - Review of Systems Constitutional: Fatigue, Malaise, Weakness Eyes: No Symptoms Ears, Nose, & Throat: No Symptoms Respiratory: No Symptoms Cardiac: No Symptoms Abdominal/Gastrointestinal: No Symptoms Genitourinary Symptoms: No Symptoms Musculoskeletal: Back Pain Skin: No Symptoms Neurological: No Symptoms Psychological: No Symptoms Endocrine: No Symptoms Hematologic/Lymphatic: No Symptoms Immunological/Allergic: No Symptoms - Past Medical History Pertinent Past Medical History: Yes Neurological History: Migraines ENT History: Cataracts Cardiac History: No Pertinent History Respiratory History: No Pertinent History Endocrine Medical History: Hypothyroidism Musculoskeletal History: Arthritis, Osteoporosis GI Medical History: GERD History: Other Psycho-Social History: Anxiety Female Reproductive Disorders: No Pertinent History Other Medical History: Frequent bladder infections, bladder dropped, urinary incontinence - Past Surgical History Past Surgical History: Yes Neuro Surgical History: No Pertinent History Cardiac: No Pertinent History Respiratory: No Pertinent History Gastrointestinal: Cholecystectomy Genitourinary: No Pertinent History Musculoskeletal: Orthopedic Surgery, Other Female Surgical History: Hysterectomy, Other Other Surgical History: Cyst removed from pelvis,KNEE SURGERY. Colonoscopy times 5. EGD times 4. BLADDER TIED UP - Social History Smoking Status: Former smoker How long have you smoked: 30years Exposure to second hand smoke: Yes Drug Use: none Patient Lives Alone: No - Nursing Vital Signs Nursing Vital Signs: Initial Vital Signs Temperature 97.7 F 12/16/19 18:41 Pulse Rate 71 12/16/19 18:41 Respiratory Rate 20 12/16/19 18:41 Blood Pressure 89/70 12/16/19 18:41 O2 Sat by Pulse Oximetry 92 L 12/16/19 18:41 Pain Scale Pain Intensity 5 - Physical Exam General Appearance: no apparent distress Eye Exam: PERRL/EOMI, eyes nml inspection Ears, Nose, Throat Exam: normal ENT inspection, TMs normal, pharynx normal Neck Exam: normal inspection, non-tender, supple, full range of motion Respiratory Exam: normal breath sounds, chest tenderness, lungs clear Cardiovascular Exam: regular rate/rhythm, normal heart sounds Gastrointestinal/Abdomen Exam: soft, normal bowel sounds, No tenderness, No distention Back Exam: normal inspection, normal range of motion, muscle spasm, other ( paravertebral tenderness no midline tenderness), No CVA tenderness Extremity Exam: normal inspection Neurologic Exam: alert, oriented x 3, cooperative, surgical rn II-XII nml as tested, sensation nml, No motor deficits, No sensory deficit Skin Exam: warm, dry, pale SpO2 Interpretation: normal O2 Delivery: Room Air - Course Nursing assessment & vital signs reviewed: Yes EKG Interpreted by Me: RATE (80), NORMAL AXIS, prolonged QT interval, Right Bundle Branch Block, Non-specific ST Changes Ordered Tests: Active Orders 24 hr Category Date Time Status ACCUCHECK [Accucheck] STAT Care 12/16/19 19:16 Active Roll Hand STAT Care 12/16/19 19:14 Active EKG-ER Only STAT Care 12/16/19 19:00 Active Masters [Catheter-[place] Masters] STAT Care 12/16/19 19:14 Active IV Insertion STAT Care 12/16/19 19:00 Active IV Insertion-2nd Peripheral STAT Care 12/16/19 19:12 Active NPO (ED) STAT Care 12/16/19 19:00 Active Oxygen-ED Only Nasal Cannula 3 lpm Care 12/16/19 19:22 Active CERVICAL SPINE WO CONTRAST [CT] Stat Exams 12/16/19 19:04 Taken HEAD WITHOUT CONTRAST [CT] Stat Exams 12/16/19 19:04 Taken LUMBAR SPINE W/O [CT] Stat Exams 12/16/19 19:05 Taken OBSTR/ACUTE ABDOMEN SERIES Stat Exams 12/16/19 19:03 Taken BLOOD CULTURE Stat Lab 12/16/19 20:09 Received CBC W DIFF Stat Lab 12/16/19 19:11 Completed CMP Stat Lab 12/16/19 19:15 Completed CULTURE,URINE Stat Lab 12/16/19 19:16 Received LIPASE Stat Lab 12/16/19 19:15 Completed Lactic Acid Stat Lab 12/16/19 19:31 Completed Manual Differential NC Stat Lab 12/16/19 19:11 Completed Occult Blood, Other Screening Stat Lab 12/16/19 19:25 Completed TROPONIN Q3H Lab 12/16/19 19:11 Completed UA W/RFX UR CULTURE Stat Lab 12/16/19 19:16 Completed Urine Triage Profile Stat Lab 12/16/19 19:16 Completed Medication Summary Discontinued Medications Generic Name Dose Route Start Last Admin Trade Name Freq PRN Reason Stop Dose Admin Fentanyl Citrate 25 mcg 12/16/19 20:17 12/16/19 20:19 Sublimaze 100 Mcg/2 Ml IV 12/16/19 20:18 25 mcg STAT ONE Administration Fentanyl Citrate Confirm 12/16/19 20:17 Sublimaze 100 Mcg/2 Ml Administered 12/16/19 20:18 Dose 100 mcg .ROUTE .STK-MED ONE Sodium Chloride Confirm 12/16/19 18:50 Sodium Chloride 0.9% 1000 Ml Administered 12/16/19 18:51 Dose 1,000 mls @ ud .ROUTE .STK-MED ONE Sodium Chloride 1,000 mls @ 999 mls/hr 12/16/19 19:00 12/16/19 20:21 Sodium Chloride 0.9% 1000 Ml IV 12/16/19 20:00 Infused .Q1H1M STA Infusion Sodium Chloride 1,000 mls @ 500 mls/hr 12/16/19 19:30 12/16/19 19:27 Sodium Chloride 0.9% 1000 Ml IV 01/15/20 19:29 500 mls/hr .Q2H OSIRIS Administration Vancomycin HCl 250 mls @ 167 mls/hr 12/16/19 19:40 12/16/19 20:10 Vancomycin 1gm/ Ns 250ml IV 12/16/19 21:09 167 mls/hr STAT ONE Administration Piperacillin Sod/Tazobactam Sod 3.375 gm in 100 mls @ 200 mls/hr 12/16/19 19: 40 12/16/19 20:40 Zosyn 3.375gm/100 Ml D5w IV 12/16/19 20:09 Infused STAT STA Infusion Piperacillin Sod/Tazobactam Sod Confirm 12/16/19 19:48 Zosyn 3.375gm/100 Ml D5w Administered 12/16/19 19:49 Dose 3.375 gm in 100 mls @ ud IV .STK-MED ONE Vancomycin HCl Confirm 12/16/19 19:48 Vancomycin 1gm/ Ns 250ml Administered 12/16/19 19:49 Dose 250 mls @ ud IV .STK-MED ONE Sodium Chloride 1,000 mls @ 150 mls/hr 12/16/19 21:30 12/16/19 21:23 Sodium Chloride 0.9% 1000 Ml IV 01/15/20 21:29 150 mls/hr .Q6H40M OSIRIS Administration Sodium Chloride Confirm 12/16/19 19:27 Sodium Chloride 0.9% 1000 Ml Administered 12/16/19 19:28 Dose 1,000 mls @ ud .ROUTE .STK-MED ONE Sodium Chloride Confirm 12/16/19 21:22 Sodium Chloride 0.9% 1000 Ml Administered 12/16/19 21:23 Dose 1,000 mls @ ud .ROUTE .STK-MED ONE Ondansetron HCl 4 mg 12/16/19 20:17 12/16/19 20:18 Zofran 4 Mg/2 Ml Vial IV 12/16/19 20:18 4 mg STAT ONE Administration Ondansetron HCl Confirm 12/16/19 20:17 Zofran 4 Mg/2 Ml Vial Administered 12/16/19 20:18 Dose 4 mg .ROUTE .STK-MED ONE Lab/Rad Data: Laboratory Result Diagrams 12/16/19 19:11 12/16/19 19:15 Laboratory Results 12/16/19 12/16/19 12/16/19 Range/Units 19:31 19:25 19:25 WBC (4.0-10.5) K/mm3 RBC (4.1-5.4) M/mm3 Hgb (12.0-16.0) gm/dl Hct (35-47) % MCV (78-100) fl MCH (26-32) pg MCHC (32-36) g/dl RDW (11.5-14.0) % Plt Count (150-450) K/mm3 MPV (7.5-11.0) fl Segmented Neutrophils (36.0-66.0) % Band Neutrophils (0.0-2.0) % Lymphocytes (Manual) (24-44) % Monocytes (Manual) (0.0-12.0) % Dohle Bodies Platelet Estimate (NORMAL) RBC Morphology Sodium (137-145) mmol/L Potassium (3.5-5.1) mmol/L Chloride (98-107) mmol/L Carbon Dioxide (22-30) mmol/L Anion Gap (5-15) MEQ/L BUN (7-17) mg/dL Creatinine (0.52-1.04) mg/dL Estimated GFR ML/MIN Glucose (74-106) mg/dL Lactic Acid 3.3 H (0.4-2.0) Calcium (8.4-10.2) mg/dL Total Bilirubin (0.2-1.3) mg/dL AST (14-36) U/L ALT (0-35) U/L Alkaline Phosphatase (38-126) U/L Troponin I (0.000-0.034) ng/mL Serum Total Protein (6.3-8.2) g/dL Albumin (3.5-5.0) g/dL Lipase (23-300) U/L Urine Color (YELLOW) Urine Appearance (CLEAR) Urine pH (5-6) Ur Specific [place] (1.005-1.025) Urine Protein (Negative) Urine Ketones (NEGATIVE) Urine Blood (0-5) Layo/ul Urine Nitrite (NEGATIVE) Urine Bilirubin (NEGATIVE) Urine Urobilinogen (0-1) mg/dL Ur Leukocyte Esterase (NEGATIVE) Urine WBC (Auto) (0-5) /HPF Urine RBC (Auto) (0-2) /HPF U Epithel Cells (Auto) (FEW) /HPF Urine Bacteria (Auto) (NEGATIVE) /HPF Unidentified Crystals (NEGATIVE) /HPF Granular Casts (Auto) (NEGATIVE) /LPF Urine Mucus (Auto) (NEGATIVE) /HPF Urine Culture Reflexed (NO) Urine Glucose (NEGATIVE) mg/dL Stool Occult Blood NEGATIVE (Negative) Urine Opiates Level (NEGATIVE) Ur Methadone (NEGATIVE) Urine Barbiturates (NEGATIVE) Ur Phencyclidine (PCP) (NEGATIVE) Urine Amphetamine (NEGATIVE) U Benzodiazepine Level (NEGATIVE) Urine Cocaine (NEGATIVE) Urine Marijuana (THC) (NEGATIVE) Influenza Type A Ag NEGATIVE (NEGATIVE) Influenza Type B Ag NEGATIVE (NEGATIVE) RSV (PCR) POSITIVE (Negative) 12/16/19 12/16/19 12/16/19 Range/Units 19:16 19:16 19:15 WBC (4.0-10.5) K/mm3 RBC (4.1-5.4) M/mm3 Hgb (12.0-16.0) gm/dl Hct (35-47) % MCV (78-100) fl MCH (26-32) pg MCHC (32-36) g/dl RDW (11.5-14.0) % Plt Count (150-450) K/mm3 MPV (7.5-11.0) fl Segmented Neutrophils (36.0-66.0) % Band Neutrophils (0.0-2.0) % Lymphocytes (Manual) (24-44) % Monocytes (Manual) (0.0-12.0) % Dohle Bodies Platelet Estimate (NORMAL) RBC Morphology Sodium 143 (137-145) mmol/L Potassium 3.8 (3.5-5.1) mmol/L Chloride 105 (98-107) mmol/L Carbon Dioxide 25 (22-30) mmol/L Anion Gap 16.2 H (5-15) MEQ/L BUN 28 H (7-17) mg/dL Creatinine 1.76 H (0.52-1.04) mg/dL Estimated GFR 30.7 ML/MIN Glucose 181 H (74-106) mg/dL Lactic Acid (0.4-2.0) Calcium 9.4 (8.4-10.2) mg/dL Total Bilirubin 0.60 (0.2-1.3) mg/dL AST 91 H (14-36) U/L ALT 34 (0-35) U/L Alkaline Phosphatase 99 (38-126) U/L Troponin I (0.000-0.034) ng/mL Serum Total Protein 7.6 (6.3-8.2) g/dL Albumin 4.2 (3.5-5.0) g/dL Lipase 69 (23-300) U/L Urine Color YELLOW (YELLOW) Urine Appearance CLOUDY (CLEAR) Urine pH 5.0 (5-6) Ur Specific [place] 1.018 (1.005-1.025) Urine Protein 100 (Negative) Urine Ketones NEGATIVE (NEGATIVE) Urine Blood SMALL (0-5) Layo/ul Urine Nitrite NEGATIVE (NEGATIVE) Urine Bilirubin NEGATIVE (NEGATIVE) Urine Urobilinogen NEGATIVE (0-1) mg/dL Ur Leukocyte Esterase NEGATIVE (NEGATIVE) Urine WBC (Auto) 11-15 (0-5) /HPF Urine RBC (Auto) 3-5 (0-2) /HPF U Epithel Cells (Auto) NONE (FEW) /HPF Urine Bacteria (Auto) MODERATE (NEGATIVE) /HPF Unidentified Crystals 2-5 (NEGATIVE) /HPF Granular Casts (Auto) 2-5 (NEGATIVE) /LPF Urine Mucus (Auto) MODERATE (NEGATIVE) /HPF Urine Culture Reflexed YES (NO) Urine Glucose NEGATIVE (NEGATIVE) mg/dL Stool Occult Blood (Negative) Urine Opiates Level NEGATIVE (NEGATIVE) Ur Methadone NEGATIVE (NEGATIVE) Urine Barbiturates NEGATIVE (NEGATIVE) Ur Phencyclidine (PCP) NEGATIVE (NEGATIVE) Urine Amphetamine NEGATIVE (NEGATIVE) U Benzodiazepine Level POSITIVE (NEGATIVE) Urine Cocaine NEGATIVE (NEGATIVE) Urine Marijuana (THC) NEGATIVE (NEGATIVE) Influenza Type A Ag (NEGATIVE) Influenza Type B Ag (NEGATIVE) RSV (PCR) (Negative) 12/16/19 12/16/19 Range/Units 19:11 19:11 WBC 15.3 H (4.0-10.5) K/mm3 RBC 3.72 L (4.1-5.4) M/mm3 Hgb 12.3 (12.0-16.0) gm/dl Hct 39.0 (35-47) % MCV 104.8 H (78-100) fl MCH 33.1 H (26-32) pg MCHC 31.5 L (32-36) g/dl RDW 13.3 (11.5-14.0) % Plt Count 245 (150-450) K/mm3 MPV 12.4 H (7.5-11.0) fl Segmented Neutrophils 75 H (36.0-66.0) % Band Neutrophils 11 H (0.0-2.0) % Lymphocytes (Manual) 8 L (24-44) % Monocytes (Manual) 6 (0.0-12.0) % Dohle Bodies 1+ Platelet Estimate NORMAL (NORMAL) RBC Morphology NORMAL Sodium (137-145) mmol/L Potassium (3.5-5.1) mmol/L Chloride (98-107) mmol/L Carbon Dioxide (22-30) mmol/L Anion Gap (5-15) MEQ/L BUN (7-17) mg/dL Creatinine (0.52-1.04) mg/dL Estimated GFR ML/MIN Glucose (74-106) mg/dL Lactic Acid (0.4-2.0) Calcium (8.4-10.2) mg/dL Total Bilirubin (0.2-1.3) mg/dL AST (14-36) U/L ALT (0-35) U/L Alkaline Phosphatase (38-126) U/L Troponin I < 0.012 (0.000-0.034) ng/mL Serum Total Protein (6.3-8.2) g/dL Albumin (3.5-5.0) g/dL Lipase (23-300) U/L Urine Color (YELLOW) Urine Appearance (CLEAR) Urine pH (5-6) Ur Specific [place] (1.005-1.025) Urine Protein (Negative) Urine Ketones (NEGATIVE) Urine Blood (0-5) Layo/ul Urine Nitrite (NEGATIVE) Urine Bilirubin (NEGATIVE) Urine Urobilinogen (0-1) mg/dL Ur Leukocyte Esterase (NEGATIVE) Urine WBC (Auto) (0-5) /HPF Urine RBC (Auto) (0-2) /HPF U Epithel Cells (Auto) (FEW) /HPF Urine Bacteria (Auto) (NEGATIVE) /HPF Unidentified Crystals (NEGATIVE) /HPF Granular Casts (Auto) (NEGATIVE) /LPF Urine Mucus (Auto) (NEGATIVE) /HPF Urine Culture Reflexed (NO) Urine Glucose (NEGATIVE) mg/dL Stool Occult Blood (Negative) Urine Opiates Level (NEGATIVE) Ur Methadone (NEGATIVE) Urine Barbiturates (NEGATIVE) Ur Phencyclidine (PCP) (NEGATIVE) Urine Amphetamine (NEGATIVE) U Benzodiazepine Level (NEGATIVE) Urine Cocaine (NEGATIVE) Urine Marijuana (THC) (NEGATIVE) Influenza Type A Ag (NEGATIVE) Influenza Type B Ag (NEGATIVE) RSV (PCR) (Negative) - Progress Progress: improved, pain not gone completely, re-examined Progress Note: 12/16/19 20:57 she is given fluid bolus and antibiotic per sepsis protocol and pressure is imrproved to 94/45 . workup showed white count 15 with lactate of 3.3 and some acute kidney injury with Cr. 1.76. she does have there is aright side pneumonia and is covered by abx. CT head/neck negative for any acute finding. CT lumbar spines showed degenerative changes . d/w , recommended transfer [facility] as patient needs higher level of care . plan d/w patient/ family and they are ok with transfer. 12/16/19 21:05 d/w Dr. plata [facility], reviewed findings and workup , agreed with transfer Discussed with .: Laurence Counseled pt/family regarding: lab results, diagnosis, rad results - Departure Departure Disposition: Transfer Clinical Impression: Severe sepsis, Acute UTI, Frequent falls Pneumonia Qualifiers: Pneumonia type: due to unspecified organism Laterality: right Lung location: unspecified part of lung Qualified Code(s): J18.9 - Pneumonia, unspecified organism Acute kidney failure Qualifiers: Acute renal failure type: unspecified Qualified Code(s): N17.9 - Acute kidney failure, unspecified Condition: Stable Critical Care Time: Yes Critical Care Time(excluding separately billable procedures): Critical 75-104 mins Referrals: TEETEE ISIDRO [Primary Care Provider] -
[2019-12-16 19:16] LABS: Hemoglobin 12.3 gm/dl (12.0-16.0); Mean Cell Volume 104.8 fl (78-100); Mean Corpuscular Hemoglobin 33.1 pg (26-32); Mean Corpuscular Hgb Concent. 31.5 g/dl (32-36); Mean Platelet Volume 12.4 fl (7.5-11.0); Platelet Count 245 K/mm3 (150-450); Red Blood Count 3.72 M/mm3 (4.1-5.4); Red Cell Distribution Width 13.3 % (11.5-14.0); White Blood Count 15.3 K/mm3 (4.0-10.5)
[2019-12-16 19:24] LABS: ALBUMIN 4.2 g/dL (3.5-5.0); ANION GAP 16.2 MEQ/L (5-15); BILIRUBIN,TOTAL 0.6 mg/dL (0.2-1.3); Calcium 9.4 mg/dL (8.4-10.2); Creatinine 1 1.76 mg/dL (0.52-1.04); Potassium 3.8 mmol/L (3.5-5.1); Total Protein 7.6 g/dL (6.3-8.2)
[2019-12-16] MEDS ORDERED: Sodium Chloride 0.9% 1000 ML 1,000 ML IV SCH ×2 (19:30→21:30)
[2019-12-16] MEDS ORDERED: Vancomycin 1GM/ Ns 250ML*** 250 ML IV ONE ×2 (19:40→19:48)
[2019-12-16] MEDS ORDERED: Zosyn 3.375GM/100 Ml D5W 3.375 GM/100 ML IVPB IV STA (19:40)
[2019-12-16] MEDS ORDERED: Zosyn 3.375GM/100 Ml D5W 3.375 GM/100 ML IVPB IV ONE (19:48)
[2019-12-16 20:05] LABS: Appearance CLOUDY (CLEAR); Bacteria MODERATE /HPF (NEGATIVE); Bilirubin NEGATIVE (NEGATIVE); Blood SMALL Ery/ul (0-5); Glucose NEGATIVE (NEGATIVE); Ketones NEGATIVE (NEGATIVE); Leukocyte Esterase NEGATIVE (NEGATIVE); Mucus MODERATE /HPF (NEGATIVE); Nitrite NEGATIVE (NEGATIVE); Protein,Urine Dip 100 (Negative); Specific Gravity 1.018 (1.005-1.025); Urobilinogen NEGATIVE mg/dL (0-1)
[2019-12-16 20:14] LABS: Amphetamine,Urine NEGATIVE (NEGATIVE); Barbiturate,Urine NEGATIVE (NEGATIVE); Benzodiazepine,Urine POSITIVE (NEGATIVE); Cocaine,Urine NEGATIVE (NEGATIVE); Methadone,Urine NEGATIVE (NEGATIVE); Opiate,Urine NEGATIVE (NEGATIVE); PCP,Urine NEGATIVE (NEGATIVE); THC,Urine NEGATIVE (NEGATIVE)
[2019-12-16] MEDS ORDERED: Zofran 4 MG/2 ML VIAL IV ONE (20:17)
[2019-12-16] MEDS ORDERED: Zofran 4 MG/2 ML VIAL ONE (20:17)
[2019-12-16] MEDS ORDERED: SUBLIMAZE 100 MCG/2 ML IV ONE (20:17)
[2019-12-16] MEDS ORDERED: SUBLIMAZE 100 MCG/2 ML ONE (20:17)
[2019-12-16 20:25] VITALS: PULSE 70
[2019-12-16 20:26] LABS: INFLUENZA A NEGATIVE (NEGATIVE); INFLUENZA B NEGATIVE (NEGATIVE); RESPIRATORY SYNCTIAL VIRUS POSITIVE (Negative)
[2019-12-16 20:38] LABS: BAND 11 % (0.0-2.0); Lymphocytes 8 % (24-44); Monocyte 6 % (0.0-12.0); Neutrophils 75 % (36.0-66.0); Platelet Estimate NORMAL (NORMAL); Total Cells Counted 100
[2019-12-16 20:39] LABS: Dohle Bodies 1+
[2019-12-16 21:28] VITALS: BP 89/52; O2SAT 95
--- NOTE | 2019-12-17 08:36 | XRAY ---
Indication: Left-sided pain following fall. Multiple contiguous axial images obtained through the head without contrast. Comparison: None Age-appropriate global atrophy and minimal periventricular degenerative micro-ischemia bilaterally. No acute intracranial hemorrhage, abnormal extra-axial fluid collection, or mass effect. Fourth ventricle is midline without hydrocephalus. Muro-white matter differentiation preserved. Bony calvarium intact. There is moderate mucosal thickening of both ethmoid sinuses and small right maxillary sinus fluid leveling. Mastoid air cells are clear. Impression: Nonacute senile brain with incidental paranasal sinus disease. Comment: Preliminary interpretation was made by [facility]. No critical discrepancy.
--- NOTE | 2019-12-17 08:40 | XRAY ---
Indication: Left-sided neck pain following fall. Multiple contiguous axial images obtained through the cervical spine. Sagittal and coronal reformatted images obtained. Comparison: None Axial images negative for acute fracture, suspicious bony lesions, or spinal canal stenosis. Mild C4-C7 degenerative endplate spurring. Sagittal and coronal reformatted images demonstrate normal alignment with mild C4-C6 disc space narrowing. No acute compression fracture, subluxation, or jumped facet. Visualized noncontrasted soft tissues demonstrates mild carotid calcifications bilaterally. Incidental patchy right apical airspace opacities. Impression: 1. Negative for acute fracture/subluxation. 2. Multilevel degenerative changes. 3. Right apical airspace disease. Comment: Preliminary interpretation was made by [facility]. No critical discrepancy.
--- NOTE | 2019-12-17 08:42 | XRAY ---
Indication: Low back pain following fall. Multiple contiguous axial images obtained through the lumbar spine. Sagittal and coronal reformatted images obtained. Comparison: None Axial images negative for acute fracture, suspicious bony lesions, or spinal canal stenosis. There is L4-S1 degenerative vacuum disc phenomena, minimal endplate spurring, and mild bilateral degenerative facet hypertrophy. Sagittal and coronal reformatted images demonstrate normal lumbar lordosis with mild/moderate levorotoscoliosis centered at the L3-L4 level. L4-S1 disc space narrowing. No acute compression fracture, subluxation, or jumped facet. Visualized noncontrasted soft tissues demonstrates mild scattered aortoiliac calcifications. Impression: 1. Negative for acute fracture/subluxation. 2. L4-S1 degenerative changes and levorotoscoliosis. Comment: Preliminary interpretation was made by [facility]. No critical discrepancy.
--- NOTE | 2019-12-17 08:44 | XRAY ---
Indication: Cough. Hypotension. Sepsis. Comparison: Chest exam December 11, 2017. 2 views of the abdomen nonacute and nonobstructed with cholecystectomy clips, Masters catheter, and cutaneous suture material. Solid organs unremarkable. Osseous structures intact with lower lumbar degenerative spondylosis and levorotoscoliosis. Single AP chest demonstrates new right apical, right base, and lesser degree left base infiltrates/atelectasis. Remaining heart, left lung, and bony thorax unremarkable. Impression: Negative abdomen. New bilateral lung infiltrates/atelectasis.
== END 2019-12-16 21:32 | disposition short-term general hospital (02) ==
LOC: ED 18:29
DX: A41.9 Sepsis, unspecified organism (principal); N39.0 Urinary tract infection, site not specified; J18.9 Pneumonia, unspecified organism; N17.9 Acute kidney failure, unspecified; Z91.81 History of falling; R53.1 Weakness; Z79.899 Other long term (current) drug therapy; M54.9 Dorsalgia, unspecified; E03.9 Hypothyroidism, unspecified
CPT/HCPCS: 36000; 36415; 51702; 70450; 72125; 72131; 74022; 80053; 80307; 81001; 82272; 82962; 83605; 83690; 84484; 85025; 87040; 87086; 87631; 93005; 93041; 96360; 96365; 96368; 96374; 96375; 99285; 99291; 99292; J2405; J2543; J3010; J3370

== ENCOUNTER 2020-06-17 11:28 | Emergency (ER) | payer MEDICARE ==
[2020-06-17 12:24] LABS: Absolute Neutrophil Ct (ANC) 5.86 (1.4-6.9); BASOPHIL % 0.3 % (0.0-0.4); Basophil (Absolute #) 0.02 (0-0.4); Eosinophil % 0.6 % (0.00-5.0); Eosinophil (Absolute #) 0.04 (0-0.5); Hematocrit 34.4 % (35-47); Hemoglobin 10.7 gm/dl (12.0-16.0); Lymphocyte (Absolute #) 0.53 (1.0-4.6); Lymphocytes % 7.7 % (24.0-44.0); Mean Cell Volume 101.8 fl (78-100); Mean Corpuscular Hemoglobin 31.7 pg (26-32); Mean Corpuscular Hgb Concent. 31.1 g/dl (32-36); Mean Platelet Volume 12.6 fl (7.5-11.0); Monocyte (Absolute #) 0.39 (0.0-1.3); Monocytes % 5.7 % (0.0-12.0); Neutrophil % 85.7 % (36.0-66.0); Platelet Count 255 K/mm3 (150-450); Red Blood Count 3.38 M/mm3 (4.1-5.4); Red Cell Distribution Width 14.6 % (11.5-14.0); White Blood Count 6.8 K/mm3 (4.0-10.5)
[2020-06-17 12:32] LABS: ALBUMIN 3.4 g/dL (3.5-5.0); ANION GAP 10.7 MEQ/L (5-15); BILIRUBIN,TOTAL 0.3 mg/dL (0.2-1.3); Calcium 9.4 mg/dL (8.4-10.2); Creatinine 1 1.16 mg/dL (0.52-1.04); Potassium 3.8 mmol/L (3.5-5.1)
--- NOTE | 2020-06-17 12:53 | ERPHSYRPT ---
- History of Present Illness Time Seen by Provider: 06/17/20 11:40 Exam Limitations: no limitations Patient Subjective Stated Complaint: pt to ER with complaints of low blood pressure this morning. pt states home health nurse states she had low blood pressure and then she came in for infusions at the infusion center and they said it was low so they sent her here. Triage Nursing Assessment: pt arrived by wheelchair from infusion center. pt recieved antibiotic infusion. pt skin pwd. pt A&Ox4. Physician History: Patient is a 64-year-old female presents to our ED for evaluation of suspected low blood pressure. Patient receives home health physical therapy and outpatient antibiotic infusion for pneumonia. Patient's home health nurse checked patient's blood pressure states it was low. Patient was otherwise asymptomatic. The exact value of the blood pressure was not provided to us. Upon arrival patient blood pressure was within normal limits. Patient was asymptomatic. No chest pain or shortness of breath. No nausea or vomiting. No dizziness. Patient states she feels weak however this is not new for her. Patient voices no other complaints or concerns at this time. Timing/Duration: today Severity: mild Modifying Factors: Improves With: nothing Associated Symptoms: No nausea, No vomiting, No abdominal pain, No shortness of breath, No heartburn, No diaphoresis, No cough, No chills, No chest pain, No fever, No headaches, No loss of appetite, No malaise, No syncope, No seizure Allergies/Adverse Reactions: tape Allergy (Uncoded 06/17/20 11:37) Blisters Home Medications: Diazepam [Valium] 10 mg PO QID 07/14/17 [History] Esomeprazole Magnesium [Nexium] 40 mg PO DAILY 07/14/17 [History] Levothyroxine Sodium 75 Mcg [Synthroid 75 Mcg] 75 mcg PO DAILY 07/14/17 [History] Mirtazapine [Remeron] 15 mg PO QHS 07/14/17 [History] Albuterol 2.5 mg/3 ml Neb [Proventil 2.5 mg/3 ml Neb] 2.5 mg IH Q4HWA 05/26/20 [History] Apixaban [Eliquis] 5 mg PO BID 05/26/20 [History] Ceftriaxone 2 GM/50 ML PREMIX* [ROCEPHIN 2 Gm-D5w 50ML BAG] 2 g IV DAILY 05/26/20 [History] Potassium Chloride [Klor-Con] 20 meq PO DAILY 05/26/20 [History] Pregabalin 100 mg PO TID 05/26/20 [History] Hx Tetanus, Diphtheria Vaccination/Date Given: Yes Hx Influenza Vaccination/Date Given: No Hx Pneumococcal Vaccination/Date Given: No Travel Risk - International Travel Have you traveled outside of the country in past 3 weeks: No - Coronavirus Screening Are you exhibiting any of the following symptoms?: No Close contact with a COVID-19 positive Pt in past 14-21 Days: No - Review of Systems Constitutional: No Symptoms, No Fever, No Chills Eyes: No Symptoms Ears, Nose, & Throat: No Symptoms Respiratory: No Symptoms, No Cough, No Dyspnea Cardiac: No Symptoms, No Chest Pain, No Edema, No Syncope Abdominal/Gastrointestinal: No Symptoms, No Abdominal Pain, No Nausea, No Vomiting, No Diarrhea Genitourinary Symptoms: No Symptoms, No Dysuria Musculoskeletal: No Back Pain, No Neck Pain Skin: No Symptoms, No Rash Neurological: No Symptoms, No Dizziness, No Focal Weakness, No Sensory Changes Psychological: No Symptoms Endocrine: No Symptoms Hematologic/Lymphatic: No Symptoms Immunological/Allergic: No Symptoms All Other Systems: Reviewed and Negative - Past Medical History Pertinent Past Medical History: Yes Neurological History: Migraines ENT History: Cataracts Cardiac History: Other Respiratory History: COPD, Pneumonia Endocrine Medical History: Hypothyroidism Musculoskeletal History: Arthritis, Osteoporosis GI Medical History: GERD History: Other Psycho-Social History: Anxiety Female Reproductive Disorders: No Pertinent History Other Medical History: Frequent bladder infections, bladder dropped, urinary incontinence," bladder tied up" recently since fall in April 2020 syncope unknown, - Past Surgical History Past Surgical History: Yes Neuro Surgical History: No Pertinent History Cardiac: No Pertinent History Respiratory: No Pertinent History Gastrointestinal: Cholecystectomy Genitourinary: No Pertinent History Musculoskeletal: Orthopedic Surgery, Other Female Surgical History: Hysterectomy, Other Other Surgical History: Cyst removed from pelvis,KNEE SURGERY right knee scope. Colonoscopy times 5. EGD times 4. BLADDER TIED UP, See note - Social History Smoking Status: Former smoker How long have you smoked: 30years Exposure to second hand smoke: Yes Drug Use: none Patient Lives Alone: No - Female History Hx Now: No - Nursing Vital Signs Nursing Vital Signs: Initial Vital Signs Temperature 98.5 F 06/17/20 11:30 Pulse Rate 77 06/17/20 11:30 Blood Pressure 102/58 06/17/20 11:30 O2 Sat by Pulse Oximetry 95 06/17/20 11:30 Pain Scale Pain Intensity 0 - Physical Exam General Appearance: no apparent distress, alert Eye Exam: PERRL/EOMI, eyes nml inspection Ears, Nose, Throat Exam: normal ENT inspection, TMs normal, pharynx normal, moist mucous membranes Neck Exam: normal inspection, non-tender, supple, full range of motion Respiratory Exam: normal breath sounds, lungs clear, No respiratory distress Cardiovascular Exam: regular rate/rhythm, normal heart sounds, normal peripheral pulses Gastrointestinal/Abdomen Exam: soft, normal bowel sounds, No tenderness, No mass Back Exam: normal inspection, normal range of motion, No CVA tenderness, No vertebral tenderness Extremity Exam: normal inspection, normal range of motion, pelvis stable Neurologic Exam: alert, oriented x 3, cooperative, normal mood/affect, nml cereb ellar function, nml station & gait, sensation nml, No motor deficits Skin Exam: normal color, warm, dry, No rash Lymphatic Exam: No adenopathy SpO2 Interpretation: normal SpO2: 95 O2 Delivery: Room Air - Course Nursing assessment & vital signs reviewed: Yes EKG Interpreted by Me: RATE (70), Sinus Rhythm, Right Bundle Branch Block - Radiology Exams Chest X-ray Interpretation: Teleradiologist Report (Prior ill defined airspace opacities within the right upper lung field right lung base and left lung base have essentially resolved. However mild curvilinear stranding within the peripheral right mid to upper lung feldman and mild transverse linear stranding at the right lung base remain. ) Ordered Tests: Active Orders 24 hr Category Date Time Status EKG-ER Only STAT Care 06/17/20 11:46 Active IV Insertion STAT Care 06/17/20 11:45 Active Pulse Oximetry (ED) STAT Care 06/17/20 11:46 Active CHEST 1 VIEW (PORTABLE) Stat Exams 06/17/20 11:46 Completed CBC W DIFF Stat Lab 06/17/20 12:12 Completed CMP Stat Lab 06/17/20 12:12 Completed TROPONIN Q3H Lab 06/17/20 12:12 Completed TROPONIN Q3H Lab 06/17/20 14:30 Completed TROPONIN Q3H Lab 06/17/20 18:00 Ordered TROPONIN Q3H Lab 06/17/20 21:00 Ordered TROPONIN Q3H Lab 06/18/20 00:00 Ordered Medication Summary Generic Name Dose Route Start Last Admin Trade Name Rl PRN Reason Stop Dose Admin Sodium Chloride 1,000 mls @ 999 mls/hr 06/17/20 15:20 Sodium Chloride 0.9% 1000 Ml IV 06/17/20 16:20 .Q1H1M STA Lab/Rad Data: Laboratory Result Diagrams 06/17/20 12:12 06/17/20 12:12 Laboratory Results 06/17/20 06/17/20 06/17/20 Range/Units 14:30 12:12 12:12 WBC (4.0-10.5) K/mm3 RBC (4.1-5.4) M/mm3 Hgb (12.0-16.0) gm/dl Hct (35-47) % MCV (78-100) fl MCH (26-32) pg MCHC (32-36) g/dl RDW (11.5-14.0) % Plt Count (150-450) K/mm3 MPV (7.5-11.0) fl Gran % (36.0-66.0) % Eos # (Auto) (0-0.5) Absolute Lymphs (auto) (1.0-4.6) Absolute Monos (auto) (0.0-1.3) Lymphocytes % (24.0-44.0) % Monocytes % (0.0-12.0) % Eosinophils % (0.00-5.0) % Basophils % (0.0-0.4) % Absolute Granulocytes (1.4-6.9) Basophils # (0-0.4) Sodium 139 (137-145) mmol/L Potassium 3.8 (3.5-5.1) mmol/L Chloride 100 (98-107) mmol/L Carbon Dioxide 32 H (22-30) mmol/L Anion Gap 10.7 (5-15) MEQ/L BUN 13 (7-17) mg/dL Creatinine 1.16 H (0.52-1.04) mg/dL Estimated GFR 49.7 ML/MIN Glucose 99 (74-106) mg/dL Calcium 9.4 (8.4-10.2) mg/dL Total Bilirubin 0.30 (0.2-1.3) mg/dL AST 21 (14-36) U/L ALT 8 (0-35) U/L Alkaline Phosphatase 80 (38-126) U/L Troponin I < 0.012 < 0.012 (0.000-0.034) ng/mL Serum Total Protein 7.0 (6.3-8.2) g/dL Albumin 3.4 L (3.5-5.0) g/dL 06/17/20 Range/Units 12:12 WBC 6.8 (4.0-10.5) K/mm3 RBC 3.38 L (4.1-5.4) M/mm3 Hgb 10.7 L (12.0-16.0) gm/dl Hct 34.4 L (35-47) % MCV 101.8 H (78-100) fl MCH 31.7 (26-32) pg MCHC 31.1 L (32-36) g/dl RDW 14.6 H (11.5-14.0) % Plt Count 255 (150-450) K/mm3 MPV 12.6 H (7.5-11.0) fl Gran % 85.7 H (36.0-66.0) % Eos # (Auto) 0.04 (0-0.5) Absolute Lymphs (auto) 0.53 L (1.0-4.6) Absolute Monos (auto) 0.39 (0.0-1.3) Lymphocytes % 7.7 L (24.0-44.0) % Monocytes % 5.7 (0.0-12.0) % Eosinophils % 0.6 (0.00-5.0) % Basophils % 0.3 (0.0-0.4) % Absolute Granulocytes 5.86 (1.4-6.9) Basophils # 0.02 (0-0.4) Sodium (137-145) mmol/L Potassium (3.5-5.1) mmol/L Chloride (98-107) mmol/L Carbon Dioxide (22-30) mmol/L Anion Gap (5-15) MEQ/L BUN (7-17) mg/dL Creatinine (0.52-1.04) mg/dL Estimated GFR ML/MIN Glucose (74-106) mg/dL Calcium (8.4-10.2) mg/dL Total Bilirubin (0.2-1.3) mg/dL AST (14-36) U/L ALT (0-35) U/L Alkaline Phosphatase (38-126) U/L Troponin I (0.000-0.034) ng/mL Serum Total Protein (6.3-8.2) g/dL Albumin (3.5-5.0) g/dL - Progress Progress: improved Progress Note: 06/17/20 15:18 Patient reassessed. She feels well. Patient currently asymptomatic. Vital stable. Blood pressure is at her baseline. Troponin negative x2. EKG negative for ischemic changes. Family will continue oral rehydration therapy at home. Counseled pt/family regarding: lab results, diagnosis, need for follow-up, rad results - Departure Departure Disposition: Home Clinical Impression: Dehydration, Anemia Condition: Stable Critical Care Time: No Referrals: TEETEE ISIDRO [Primary Care Provider] - Additional Instructions: Discharge/Care Plan LOUMAICO LAQUITA was seen on 06/17/20 in the Emergency Room. The patient was counseled regarding Diagnosis,Lab results, Imaging studies, need for follow up and when to return to the Emergency Room. Prescriptions given: Discharge Note I have spoken with the patient and/or caregivers. I have explained the patient's condition, diagnosis and treatment plan based on the information available to me at this time. I have answered the patient's and/or caregiver's questions and addressed any concerns. The patient and/or caregivers have as good understanding of the patient's diagnosis, condition and treatment plan as can be expected at this point. The vital signs have been stable. The patient's condition is stable and appropriate for discharge from the emergency department. The patient will pursue further outpatient evaluation with the primary care physician or other designated or consulting physician as outlined in the discharge instructions. The patient and/or caregivers are agreeable to this plan of care and follow-up instructions have been explained in detail. The patient and/or caregivers have received these instruction. The patient/and or caregivers are aware that any significant change in condition or worsening of symptoms should prompt an immediate return to this or the closest emergency department or call 911.
--- NOTE | 2020-06-17 12:55 | XRAY ---
Exam: AP upright portable chest film from 06/17/2020. Comparison: AP 75 semierect upright chest film from 12/16/2019 (from acute abdominal series). Indication: Hypotension, history of COPD, heart disease, and asthma; previous smoker, current vape user. Findings: The transverse heart size appears within normal limits. The cathi and mediastinal structures appear intact. There is mild tortuosity of both the ascending aorta and distal descending thoracic aorta representing no change. I see a left-sided PICC line with the tip in the mid SVC pointing inferiorly and slightly toward the right. The patient's chin/neck partially obscures visualization of the right lung apex and suprasternal notch. There is mild elevation/eventration of the right hemidiaphragm representing no change. Prior ill-defined airspace disease within the right upper lung field and right lung base has cleared. However, I still note some minimal curvilinear stranding within the lateral right upper lung field and linear stranding at the right lung base, likely due to chronic linear atelectasis or scarring. The right costophrenic angle is slightly blunted. The left lung reveals clearing of the prior minimal infiltrate/atelectasis at the left lung base. The remainder of the left lung appears clear. No pneumothorax or left-sided pleural effusion is seen. Surgical clips consistent with prior cholecystectomy are seen within the right upper quadrant. Minimal convexity of the mid thoracic spine toward the right is seen. An electronic monitoring device is partially seen overlying the right midabdomen. Correlate clinically. Impression: 1. Prior ill-defined airspace opacities within the right upper lung field, right lung base, and left lung base have essentially resolved. However, mild curvilinear stranding within the peripheral right mid to upper lung field and mild transverse linear stranding at the right lung base remain. These latter findings are likely due to chronic linear atelectasis or fibrotic scarring. 2. Mild elevation/eventration of the right hemidiaphragm is again seen. 3. No other acute cardiopulmonary disease is seen. 4. Left-sided PICC line noted in place, as discussed above.
[2020-06-17] MEDS ORDERED: Sodium Chloride 0.9% 1000 ML 1,000 ML IV STA (15:20)
[2020-06-17] MEDS ORDERED: Sodium Chloride 0.9% 250 ML 250 ML IV ONE (15:22)
[2020-06-17] MEDS ORDERED: Sodium Chloride 0.9% 250 ML 250 ML IV SCH (15:30)
[2020-06-17 15:31] VITALS: BP 112/72; PULSE 70; O2SAT 96
== END 2020-06-17 16:00 | disposition home or self-care (01) ==
LOC: ED 11:28
DX: E86.0 Dehydration (principal); D64.9 Anemia, unspecified
CPT/HCPCS: 36000; 36415; 71045; 80053; 84484; 85025; 93005; 94760; 96360; 96365; 99211; 99284; J0696; J1642